=== PATIENT | male | born 1960 | race Caucasian/White ===

== ENCOUNTER 2017-12-05 11:00 | Observation (INO) | payer OTHER ==
[~2017-12-05 11:00] MED LIST: Glycopyrrolate 0.2 MG/ML 5 ML SYRINGE ONE; Hydrocortisone Sod Succ/PF 100 mg/2 ml Vial ONE; ISOVUE-370 76%-LOCM 1 ML ONE; Lidocaine 1% PF 5 ML VIAL ONE; Ondansetron HCl/PF 4 MG/2 ML Vial ONE; PHENYLEPHRINE-NS 100 MCG/ML 10 ML SYRINGE ONE; Propofol 200 MG/20 ML VIAL ONE; diphenhydrAMINE 50 MG/ML VIAL ONE
[2017-12-05 11:28] LABS: #Basophils 0.1 thou/uL (0.0-0.2); #Eosinphils 0.3 thou/uL (0.0-0.7); #Lymphocytes 2.7 thou/uL (1.20-3.40); #Neutrophils 10.6 thou/uL (1.40-6.50); %Basophils 0.6 % (0.0-1.0); %Eosinophils 1.9 % (0.0-10.0); %Lymphocytes 18.6 % (21.0-51.0); %Monocytes 6.8 % (0.0-10.0); %Neutrophils 72.1 % (42.0-75.0); Hemoglobin 14.4 g/dL (14.0-18.0); Mean Corpuscular HGB CONC 33.7 g/dL (32.0-36.0); Mean Corpuscular Hemoglobin 29.4 pg (27.0-31.0); Mean Corpuscular Volume 87.2 fl (80.0-94.0); Mean Platelet Volume 7.2 fL (7.4-10.4); Platelet Count 222 thou/uL (130-400); RBC Distribution Width 14.4 % (11.5-14.5); Red Blood Cell (RBC) Count 4.92 mill/uL (4.70-6.10); White Blood Cell (WBC) Count 14.7 thou/uL (4.8-10.8)
[2017-12-05 11:53] LABS: ALT (SGPT) 12 U/L (8-55); AST (SGOT) 10 U/L (5-34); Albumin 3.6 g/dL (3.5-5.0); Alkaline Phosphatase 67 U/L (40-150); Anion Gap 14 mmol/L (10-20); BUN (Urea Nitrogen) 14 mg/dL (8.4-25.7); Bilirubin, Total 0.7 mg/dL (0.2-1.2); CKMB 0.4 ng/mL (0-6.6); Calc. Creatinine Clearance 0 mL/min (70-130); Calcium 9.8 mg/dL (7.8-10.44); Carbon Dioxide 27 mmol/L (22-29); Chloride 100 mmol/L (98-107); Estimated GFR-MDRD 47; Globulin 3.2 g/dL (2.4-3.5); Glucose 75 mg/dL (70-105); Lipase 25 U/L (8-78); Potassium 3.8 mmol/L (3.5-5.1); Protein, Total 6.8 g/dL (6.0-8.3); Sodium 137 mmol/L (136-145); Troponin I Less than 0.010 ng/mL (< 0.028)
[2017-12-05] MEDS ORDERED: Morphine 4 MG/ML VIAL ONE ×3 (13:08→14:55)
[2017-12-05] MEDS ORDERED: Ondansetron HCl/PF 4 MG/2 ML Vial ONE (13:08)
[2017-12-05] MEDS ORDERED: Piperacillin/Tazobactam 3.375 GM in Sodium Chloride 0.9% 100 ML IVPB SCH (13:15)
--- NOTE | 2017-12-05 14:17 | CT ---
CTA CHEST AND ABDOMEN AND PELVIS WITH 3D VOLUME RENDERING: INDICATION: Abdominal pain, back pain for 2 days. Emergency room physician requests a CT aortogram protocol. COMPARISON: Reference is made to 05/21/17. FINDINGS: Stable postoperative appearance of the aorta with a prominent-sized excluded aneurysmal sac seen with in the abdominal aorta. Endograft and stent material again noted. Diffuse atherosclerotic plaque, c alcified and noncalcified remains. Inflammation of right lower quadrant centered about the appendix with evidence of internal appendicol ith. There is free fluid. The bowel is not reliably characterized without enteric contrast and by a rterial phase technique. Imaged aspects of the lungs reveal scattered parenchymal opacities which may relate to volume loss. There is wall prominence of the urinary bladder, which is mildly distended. Limited evaluation of the solid abdominal organs by arterial phase enhancement. There is marked atro phy of the left kidney which has progressed from prior exam. Recommend clinical correlation. This m ay relate to sequelae from renal artery stenosis in light of the associated vascular findings. IMPRESSION: 1. Findings which indicate acute appendicitis. Surgical consultation warranted. There is surroundi ng free fluid. 2. Redemonstration of vascular disease and evidence of prior vascular surgery with endograft and dasia nt placement. There has been progression of atrophy of the left kidney which his likely due to chron ic sequelae from renal artery stenosis. Recommend appropriate clinical followup in this regard. Telephone call of findings placed to the ER physician, Dr. Poppy Rascon, at the time of interpretatio n 1238 hours, 12/05/17. CODE CR POS: [facility]
[2017-12-05] MEDS ORDERED: Bupivacaine/Epinephrine 0.25% 30 ML VIAL ONE (15:33)
[2017-12-05] MEDS ORDERED: Fentanyl 100 MCG/2 ML VIAL ONE ×2 (15:49→17:25)
[2017-12-05] MEDS ORDERED: Ondansetron HCl/PF 4 MG/2 ML Vial IVP PRN ×2 (17:41→19:44)
[2017-12-05] MEDS ORDERED: Promethazine HCl 25 MG/ML VIAL IM PRN (17:41)
[2017-12-05] MEDS ORDERED: Promethazine HCl 25 MG/ML VIAL SLOW IVP PRN (17:41)
--- NOTE | 2017-12-05 18:37 | HP ---
DATE OF ADMISSION: 12/05/2017 REQUESTING PHYSICIAN: Carey Sanches M.D. ATTENDING PHYSICIAN: Dr. Vicente. HISTORY OF PRESENT ILLNESS: The patient presented to the Emergency Department with reported history of 2-1/2 days of abdominal pain that began periumbilical and subdiaphragmatic and over the timeframe. Pain including today is settled in his right lower quadrant. The patient underwent evaluation and examination in the emergency department to include CT of his chest, abdomen and pelvis which showed a cute appendicitis at which time we were asked to evaluate the patient for admission. The patient has been anorexic for 2 days, had chills, no documented fevers and denied nausea, vomiting or diarrhea. ALLERGIES: AVELOX, CIPROFLOXACIN, LEVOFLOXACIN, and MOXIFLOXACIN. MEDICATIONS: Aspirin, metoprolol, prednisone, atorvastatin, , Plavix, lisinopril, ranitidine, a lprazolam, Ultram and Flexeril. PAST MEDICAL HISTORY: Significant for abdominal aortic aneurysm requiring stents, chronic renal dise ase secondary to left nephrectomy, hyperlipidemia, osteoarthritis, adrenal insufficiency, chronic sin usitis, collagen vascular disease, CHF, hypertension, coronary artery disease, myocardial infarction, anxiety. PAST SURGICAL HISTORY: 1. Abdominal aortic aneurysm repair x2, stent of the left kidney which failed resuscitating nephrect lorenzo. 2. Left hip replacement. 3. Hernia repair. 4. Sinus surgery. 5. Heart catheterization. 6. Three-vessel coronary artery bypass graft surgery. 7. Iliac stent. SOCIAL HISTORY: Patient states he drinks "socially" and has significant tobacco use history. The pa fred has smoked upwards of 3 packs per day, but now currently is smoking only half a pack a day, but denies drug use. FAMILY HISTORY: Hypertension. REVIEW OF SYSTEMS: A ten point review of systems is negative unless otherwise stated. PHYSICAL EXAMINATION: VITAL SIGNS: Blood pressure 120/73, heart rate 76, respirations 19, oxygen saturation 96% on room ai r, and temperature is 100.1. GENERAL: Patient is resting comfortably in bed. He is alert and oriented x3. Aj coma scale is 15. HEAD: Normocephalic, atraumatic. EYES: Extraocular motion intact. PERRLA bilaterally. EARS: Atraumatic without discharge. NOSE: Atraumatic without discharge. OROPHARYNX: Clear. NECK: Nontender. Supple. Trachea is midline. No JVD. CHEST: Clear to auscultation with good inspiratory and expiratory effort. HEART: Regular rate and rhythm. ABDOMEN: Soft with tenderness to the right lower quadrant pain and significant rebound tenderness, p ositive Rovsing. Hypoactive bowel sounds. Pelvis is stable. EXTREMITIES: Neurovascularly intact x4. Capillary refill is 3 seconds. LABORATORY DATA: White blood cell count 14.7, hemoglobin 14.4, hematocrit 42.9, platelets 222. Sodi um 137, potassium 3.8, chloride 100, CO2 27, BUN 14, creatinine 1.53, glucose 75. LFTs are unremarka ble. RADIOGRAPHIC REPORTS: CT of the abdomen and pelvis with IV contrast shows findings which indicated a cute appendicitis. There is surrounding free fluid. Multiple other chronic changes secondary to his coronary artery disease and stents, grafts. ASSESSMENT AND PLAN: 1. Acute abdominal pain. 2. Acute appendicitis. 3. History of severe vascular disease. 4. Chronic renal disease. Plan will be to admit patient to surgery for preparation for laparoscopic appendectomy. The evaluati on and examination was done by Dr. Vicente and consent was obtained at that time.
[2017-12-05] MEDS ORDERED: Ondansetron ODT 4 MG TAB PO PRN (19:44)
[2017-12-05] MEDS ORDERED: Dextrose 5% in Water 1,000 ML IV PRN (19:44)
[2017-12-05] MEDS ORDERED: Dextrose 50% Abboject 50 ML SYRINGE SLOW IVP PRN ×2 (19:44)
[2017-12-05] MEDS ORDERED: traMADol HCl 50 MG TAB PO PRN (19:44)
[2017-12-05] MEDS: Morphine 4 MG/ML VIAL SLOW IVP PRN (20:38)
[2017-12-05] MEDS: Acetaminophen 500 MG TAB PO SCH (20:47)
[2017-12-05] MEDS: Sodium Chloride 0.9% 1,000 ML IV SCH (20:47)
[2017-12-05] MEDS: Amoxicillin/Potassium Clav 875 MG TAB PO SCH (20:47)
[2017-12-05] MEDS: Famotidine 20 MG TAB PO SCH (20:47)
--- NOTE | 2017-12-05 22:30 | OP ---
DATE OF PROCEDURE: 12/05/2017 PREOPERATIVE DIAGNOSIS: Acute appendicitis. POSTOPERATIVE DIAGNOSIS: Acute appendicitis with perforation, but no abscess. PROCEDURE PERFORMED: Laparoscopic appendectomy. SURGEON: Dr. Srinivasa Vicente. ANESTHESIA: General endotracheal. ESTIMATED BLOOD LOSS: 20 mL. FLUIDS GIVEN: 1200 mL crystalloids. COUNTS: Sponge and instrument count are certified as correct x2. COMPLICATIONS: None apparent at the time of operation. INDICATIONS FOR PROCEDURE: This is a 57-year-old man presented with 3 days of abdominal pa in. Clinical and radiographic examination was consistent with acute appendicitis for which patient was br ought to the operating room for appendectomy. Findings are consistent with a retrocecal appendicitis with perforation and appendicolith, which is r esiding outside of the appendix. No abscess noted. DESCRIPTION OF PROCEDURE: Informed consent obtained from the patient who was brought to the operatin g room and placed in the supine position. Following general anesthesia, abdomen was sterilely prepped and draped in the usual fashion. The skin below the umbilicus was infiltrated with 0.25% Marcaine with epinephrine. A small curvilinear infraumbilical incision was made using an 11 scalpel. Umbilical stalk was grasped with Alexx and elevated. Veress needle was inserted through the incision and placed in the peritoneal cavity through which the abdomen was insufflated with 4 liters of CO2 gas. Intra-abdominal pressure noted at negative 2 mmHg. Following abdominal insufflation, Veress needle was removed and a 5 mm trocar was introduced through the incision and placed in the peritoneal cavity using the Visiport under laparoscopy. Laparoscopy confirmed proper placement of the port, no injuries to underlying structures. An additional laparoscopy reveals right lower quadrant completely encased by omental adhesions. Under direct laparoscopy, a 12 mm left lower quadrant and a 5 mm suprapubic ports were placed after t he overlying skin was infiltrated with 0.25% Marcaine with epinephrine and appropriate incisions made . The patient was placed in the Trendelenburg position, rotated to his left. I introduced the [place] dissector with cautery, using this to take down omental adhesions from the right lower quadrant to expose the distal ileum completely adhered to the right lateral wall. These were meticulously taken down to avoid injuries to the bowel. A retrocecal appendix was then noted completely adhered to the right lateral gutter. An appendicolith was also noted sitting outside of the appendix walled off by omental adhesions. The appendix was then bluntly dissected free from surrounding structures using [place] dissector. This was then grasped with an Endo [place] forcep and elevated. I created a rent through the base of the mesoappendix using a [place] dissector. An Endo-JANET with a blue load was then used to divide the appendix at the appendicocecal junction. White load of the Endo-JANET was then used to divide the mesoappendix at the base. The appendix was then delivered of the abdominal cavity with the appendicolith using an EndoCatch. Operative site was irrigated with saline solution noting good hemostasis. Finding no other pathology, laparoscopy was terminated. Fascia of the left lower quadrant port site was closed using 0 Vicryl suture and Endo closure device under laparoscopy. Abdomen was desufflated. All ports and instruments were removed and accounted for. Skin incisions were closed using 4-0 Monocryl suture in subcuticular fashion. Dermabond was applied over the incisions after closure. The patient tolerated the operation without any apparent complication and was returned to recovery ro in satisfactory condition.
[2017-12-05] MEDS: traMADol HCl 50 MG TAB PO PRN (22:48)
[2017-12-05 23:34] VITALS: BMI 29.7
--- NOTE | 2017-12-05 23:50 | PRG ---
DATE OF SERVICE: 12/05/2017 SUBJECTIVE: Walt Medina is a 57-year-old gentleman postop day 0, status post laparoscopic appen dectomy. Postop, patient is seen and evaluated postoperatively. Patient is having some abdominal pa in at this time, but recently received pain medications. Otherwise, localizes no other complaint. P atient states pain is similar to previous. OBJECTIVE: VITAL SIGNS: Reviewed and stable. GENERAL: Patient is afebrile. Resting in bed, in no acute distress. CHEST: Breathing is nonlabored. ABDOMEN: Mildly tender, but soft, nondistended and without signs of guarding or rigidity. ASSESSMENT AND PLAN: Acute appendicitis, status post laparoscopic appendectomy. Continue antibiotic s. Postoperative pain management. Continue care as ordered. Continue to monitor. Patient will nee d a short course of p.o. antibiotics upon discharge.
[2017-12-06] MEDS: Acetaminophen 500 MG TAB PO SCH ×2 (01:22→07:55)
[2017-12-06] MEDS: Morphine 4 MG/ML VIAL SLOW IVP PRN (01:25)
[2017-12-06] MEDS: traMADol HCl 50 MG TAB PO PRN ×2 (05:11→11:38)
[2017-12-06] MEDS: Sodium Chloride 0.9% 1,000 ML IV SCH (05:12)
[2017-12-06 05:58] LABS: #Eosinphils 0.1 thou/uL (0.0-0.7); #Lymphocytes 1.6 thou/uL (1.20-3.40); #Monocytes 1.2 thou/uL (0.11-0.59); #Neutrophils 12.2 thou/uL (1.40-6.50); %Basophils 0.2 % (0.0-1.0); %Eosinophils 0.6 % (0.0-10.0); %Lymphocytes 10.7 % (21.0-51.0); %Monocytes 8.2 % (0.0-10.0); %Neutrophils 80.4 % (42.0-75.0); Hemoglobin 13.2 g/dL (14.0-18.0); Mean Corpuscular HGB CONC 32.2 g/dL (32.0-36.0); Mean Corpuscular Hemoglobin 28.5 pg (27.0-31.0); Mean Corpuscular Volume 88.5 fl (80.0-94.0); Mean Platelet Volume 7.4 fL (7.4-10.4); Platelet Count 204 thou/uL (130-400); RBC Distribution Width 14.4 % (11.5-14.5); Red Blood Cell (RBC) Count 4.62 mill/uL (4.70-6.10); White Blood Cell (WBC) Count 15.2 thou/uL (4.8-10.8)
[2017-12-06 06:23] LABS: Anion Gap 12 mmol/L (10-20); BUN (Urea Nitrogen) 15 mg/dL (8.4-25.7); Calc. Creatinine Clearance 74 mL/min (70-130); Calcium 8.7 mg/dL (7.8-10.44); Carbon Dioxide 21 mmol/L (22-29); Chloride 105 mmol/L (98-107); Estimated GFR-MDRD 45; Glucose 70 mg/dL (70-105); Potassium 4.3 mmol/L (3.5-5.1); Sodium 134 mmol/L (136-145)
[2017-12-06] MEDS: Famotidine 20 MG TAB PO SCH (07:56)
[2017-12-06] MEDS: Amoxicillin/Potassium Clav 875 MG TAB PO SCH (07:56)
[2017-12-06 13:32] VITALS: BP 119/74; TEMP 98.2
--- NOTE | 2017-12-07 00:12 | DIS ---
DATE OF ADMISSION: 12/05/2017 DATE OF DISCHARGE: 12/06/2017 ADMITTING PHYSICIAN: Srinivasa Vicente D.O. DISCHARGE PHYSICIAN: Srinivasa Vicente D.O. ADMITTING DIAGNOSIS: Acute appendicitis. DISCHARGE DIAGNOSIS: Acute appendicitis. OPERATIONS PERFORMED: Laparoscopic appendectomy on 12/05/[address] Vicente. Please see separate dic tation for operative report. HISTORY AND HOSPITAL COURSE: This is a 57-year-old man presented with abdominal pain. Clinical and radiographic examination was consistent with acute appendicitis for which patient underwent an uneven tful laparoscopic appendectomy yesterday. Postop day #1, he is ambulating with minimal difficulty. Pain is adequately controlled on oral analgesics. He is having normal bowel and urinary function. C linical examination reveals a man who has been hemodynamically stable and afebrile through this hospi talization. Incisional wound remains intact, clean and dry, no gross rebound, tenderness on examinat ion. The patient will be discharged home with the following instructions: 1. He sees me in the Surgery Clinic in 2 weeks. 2. In the interim, he is to avoid weightlifting in excess of 20 pounds. 3. He is given a prescription for tramadol 50 mg #20 to be taken 1 to 2 p.o. q.6 hours p.r.n. for pa in. He may alternate this with Tylenol 1000 mg p.o. q.6 hours and ibuprofen 800 mg p.o. q.8 hours p. r.n. for pain. The patient is to call me with any questions or problems including exacerbation of abdominal pain, in tolerance to oral intake or any abnormal drainage from the incisional wounds. The patient indicates understanding of information provided. I answered his questions. He has expressed gratitude for the care and nurture during this hospitalization and surgery.
== END 2017-12-06 14:35 | disposition home or self-care (01) ==
LOC: ERS 11:00 → SURG A 13:46
PROVIDERS: ADMIT Surgery; ATTEND Surgery
PROC: 0DTJ4ZZ Resection of Appendix, Percutaneous Endoscopic Approach (ICD-10-PCS; principal; 2017-12-06)
DX: K35.3 Acute appendicitis with localized peritonitis (principal); K66.0 Peritoneal adhesions (postprocedural) (postinfection); F17.210 Nicotine dependence, cigarettes, uncomplicated; F41.9 Anxiety disorder, unspecified; I25.10 Atherosclerotic heart disease of native coronary artery without angina pectoris; I25.2 Old myocardial infarction; I13.0 Hypertensive heart and chronic kidney disease with heart failure and stage 1 through stage 4 chronic kidney disease, or unspecified chronic kidney disease; N18.9 Chronic kidney disease, unspecified; I50.9 Heart failure, unspecified; I71.4 Abdominal aortic aneurysm, without rupture; E27.40 Unspecified adrenocortical insufficiency; E78.5 Hyperlipidemia, unspecified; M35.9 Systemic involvement of connective tissue, unspecified; M19.90 Unspecified osteoarthritis, unspecified site; Z79.82 Long term (current) use of aspirin; Z79.52 Long term (current) use of systemic steroids; Z79.01 Long term (current) use of anticoagulants; Z79.899 Other long term (current) drug therapy; Z88.1 Allergy status to other antibiotic agents; Z95.1 Presence of aortocoronary bypass graft; Z95.828 Presence of other vascular implants and grafts; Z96.642 Presence of left artificial hip joint; Z90.5 Acquired absence of kidney; Z98.890 Other specified postprocedural states
CPT/HCPCS: 36415; 71275; 80048; 80053; 82553; 83690; 84484; 85025; 88304; 93005; 96361; 96365; 96366; 96375; 96376; G0378; J1200; J1720; J2001; J2270; J2405; J2543; J2704; J3010; J7050

== ENCOUNTER 2017-12-07 21:26 | Inpatient (IN) | payer OTHER ==
[~2017-12-07 21:26] MED LIST changes: -Glycopyrrolate 0.2 MG/ML 5 ML SYRINGE ONE; -Hydrocortisone Sod Succ/PF 100 mg/2 ml Vial ONE; +Iopamidol 370 76% 50 ML VIAL FS ONE; -Lidocaine 1% PF 5 ML VIAL ONE; -Ondansetron HCl/PF 4 MG/2 ML Vial ONE; -PHENYLEPHRINE-NS 100 MCG/ML 10 ML SYRINGE ONE; -Propofol 200 MG/20 ML VIAL ONE; -diphenhydrAMINE 50 MG/ML VIAL ONE
[2017-12-07] MEDS ORDERED: Fentanyl 100 MCG/2 ML VIAL ONE (22:13)
[2017-12-07 22:27] LABS: #Eosinphils 0.2 thou/uL (0.0-0.7); #Lymphocytes 0.8 thou/uL (1.20-3.40); #Monocytes 0.9 thou/uL (0.11-0.59); #Neutrophils 9.1 thou/uL (1.40-6.50); %Basophils 0.2 % (0.0-1.0); %Eosinophils 1.8 % (0.0-10.0); %Monocytes 7.8 % (0.0-10.0); %Neutrophils 83.2 % (42.0-75.0); Hemoglobin 12.8 g/dL (14.0-18.0); Mean Corpuscular HGB CONC 32.8 g/dL (32.0-36.0); Mean Corpuscular Hemoglobin 29.3 pg (27.0-31.0); Mean Corpuscular Volume 89.3 fl (80.0-94.0); Platelet Count 221 thou/uL (130-400); Red Blood Cell (RBC) Count 4.37 mill/uL (4.70-6.10); White Blood Cell (WBC) Count 10.9 thou/uL (4.8-10.8)
[2017-12-07 22:49] LABS: ALT (SGPT) 9 U/L (8-55); AST (SGOT) 11 U/L (5-34); Albumin 3.1 g/dL (3.5-5.0); Alkaline Phosphatase 62 U/L (40-150); Anion Gap 14 mmol/L (10-20); BUN (Urea Nitrogen) 15 mg/dL (8.4-25.7); Bilirubin, Total 0.5 mg/dL (0.2-1.2); Calc. Creatinine Clearance 0 mL/min (70-130); Calcium 9.5 mg/dL (7.8-10.44); Carbon Dioxide 25 mmol/L (22-29); Chloride 102 mmol/L (98-107); Estimated GFR-MDRD 50; Globulin 3.3 g/dL (2.4-3.5); Glucose 97 mg/dL (70-105); Lipase 12 U/L (8-78); Potassium 5.2 mmol/L (3.5-5.1); Protein, Total 6.4 g/dL (6.0-8.3); Sodium 136 mmol/L (136-145)
[2017-12-08] MEDS ORDERED: Fentanyl 100 MCG/2 ML VIAL ONE (02:33)
[2017-12-08] MEDS ORDERED: Piperacillin-Tazo-Dextrose,Iso 3.375 GM in Premix Bag 1 BAG IVPB SCH (04:45)
[2017-12-08 05:56] VITALS: BMI 29.9
[2017-12-08] MEDS ORDERED: Sodium Chloride 0.9% 1,000 ML IV SCH (06:00)
[2017-12-08] MEDS ORDERED: Ondansetron ODT 4 MG TAB SL PRN (06:00)
[2017-12-08] MEDS ORDERED: Ondansetron HCl/PF 4 MG/2 ML Vial IVP PRN (06:00)
[2017-12-08] MEDS ORDERED: Acetaminophen 325 MG TAB PO PRN (06:00)
--- NOTE | 2017-12-08 09:23 | CT ---
PRELIMINARY REPORT/[facility]/EMERGENCY AFTER HOURS PROCEDURE: EXAM: CT Abdomen and Pelvis With Intravenous Contrast EXAM DATE/TIME: 12/08/2017 1:00 AM CLINICAL HISTORY: 57 years old, male; Pain; Abdominal pain; Generalized; Prior surgery; Surgery date: Post-operative (0 -2 days); Surgery type: Appendectomy on saturdat TECHNIQUE: Axial computed tomography images of the abdomen and pelvis with intravenous contrast. Coronal reformatted images were created and reviewed. CONTRAST: 70 mL of ISOVUE administered intravenously. COMPARISON: No relevant prior studies available. FINDINGS: ABDOMEN: Mild atelectasis at the lung bases. Liver appears normal with no focal abnormality. Spleen appears homogeneous without focal mass. Gallbladder is present and shows no evidence of gallstone. Pancreas appears normal. No focal mass or peripancreatic inflammation. Adrenal glands are normal in appearance. Right kidney is unremarkable. Left kidney is atrophic probably with a chronic segmental infarct.. Lef t renal stent is present. Aortoiliac endograft is present with thrombosed [place] aneurysm measuring 6 cm. No evidence of small bowel obstruction. No pneumoperitoneum. Cecal tip surgical suture lines suggests prior appendectomy. Edema or fluid is seen around the tip of the cecum is small volume of residual pneumoperitoneum. A small pericecal fluid collection may be de veloping measuring 2.7 cm. Bladder appears normal. Diverticular changes are present within the colon without inflammation. Left hip arthroplasty changes are present. IMPRESSION: Recent appendectomy with pericecal fluid and edema and possible small 2.7 cm pericecal fluid collecti on which may be postoperative or possibly a small developing abscess. Nonacute findings, as indicated above Thank you for allowing us to participate in the care of your patient. Dictated and Authenticated by: Charanjit Conteh MD 12/08/2017 1:39 AM Central Time ([place] & [place]) FINAL REPORT EMERGENCY AFTER HOURS CT ABDOMEN AND PELVIS WITH IV AND ORAL CONTRAST: Date: 12/08/17 Time: 0104 hours HISTORY: Abdominal pain. Recent appendectomy. FINDINGS: Findings agree with the preliminary report by Sonya. Postoperative changes of the right lower quadrant are present with a small pericecal fluid collection. It is partially walled-off and surrounded by ad jacent stranding. Currently, it is not of size and position for safe percutaneous drainage. If sympto ms persist, please consider follow-up CT evaluation. POS: [facility]
[2017-12-08] MEDS ORDERED: ALPRAZolam 0.5 MG TAB PO PRN (10:58)
[2017-12-08] MEDS ORDERED: traMADol HCl 50 MG TAB PO PRN ×2 (11:07)
[2017-12-08 11:49] VITALS: BP 125/77; TEMP 97.9
[2017-12-08] MEDS ORDERED: predniSONE 5 MG TAB PO SCH (12:00)
[2017-12-08] MEDS ORDERED: Piperacillin/Tazobactam 3.375 GM in Sodium Chloride 0.9% 100 ML IVPB SCH (12:00)
[2017-12-08] MEDS: Acetaminophen 500 MG TAB PO SCH ×2 (12:05→12:08)
[2017-12-08] MEDS ORDERED: Vancomycin HCl 1 GM in Premix Bag 1 BAG IVPB SCH (15:00)
[2017-12-08] MEDS ORDERED: Metoprolol Tartrate 25 MG TAB PO SCH (21:00)
--- NOTE | 2017-12-08 22:44 | SS ---
DATE OF ADMISSION: 12/08/2017 DATE OF DISCHARGE: 12/08/2017 PREOPERATIVE DIAGNOSIS: Status post laparoscopic appendectomy. POSTOPERATIVE DIAGNOSIS: Status post laparoscopic appendectomy. HISTORY AND HOSPITAL COURSE: A 57-year-old man who underwent laparoscopic appendectomy on 12/05/2017 . The patient presented last night with worsening abdominal pain associated with nausea, vomiting, and diarrhea. At the time of my evaluation, he denies any nausea. He is ambulating with minimal difficu lty. He is having good bowel movement this morning and passing flatus. He has tolerated general diet for lunch. PHYSICAL EXAMINATION: VITAL SIGNS: Remained stable since this admission. Current vital signs include blood pressure 125/7 7, pulse 70, respirations 20, maximum temperature since admission this morning is 98.3 degrees Fahren heit. Oxygen saturation is 97% on room air. HEENT: Reveals normocephalic and atraumatic. HEART: Reveals regular rate and rhythm, no murmurs or gallops auscultated. LUNGS: Clear to auscultation bilaterally. His breathing is regular and unlabored. ABDOMEN: Soft, nondistended. Incisional scars remain intact, clean, and dry. He has incisional ten derness to palpation with no gross rebound tenderness present. NEUROLOGICAL: Reveals no focal deficits present. PERTINENT LABORATORY FINDINGS: Includes a CBC which was obtained last night with 10,900 white blood cells, which was improved from 3 days previously, hemoglobin and hematocrit are stable at 12.8 and 39 .0 respectively. Platelet count 221,000. Metabolic profile: Sodium 136, potassium 5.2, chloride is 102, bicarbonate 25, BUN 15, creatinine is stable at 1.46, glucose is 97. Lipase is normal at 12. I did personally review the CT scan of the abdomen and pelvis which was obtained revealing postoperat ryan inflammatory changes in the right lower quadrant. There is minimal pericecal free fluid. No pneumoperitoneum is present. IMPRESSION: Postoperative day #3 status post laparoscopic appendectomy. The patient is hemodynamica lly stable. DISCHARGE INSTRUCTIONS: He will be discharged home today with the following instructions: 1. He is to maintain clinic appointment with me in 2 weeks. 2. He is to complete his antibiotic therapy, Augmentin 875 mg p.o. b.i.d. x4 days. 3. He is to notify me with any exacerbation of abdominal pain, fever in excess of 101 degrees Fahren heit, or intolerance to oral intake. The patient indicates understanding of him today in the presenc e of his . They both have expressed deep gratitude for the care rendered to him during this hosp italization.
[2017-12-09] MEDS ORDERED: Lisinopril 20 MG TAB PO SCH (09:00)
[2017-12-09] MEDS ORDERED: Atorvastatin Calcium 20 MG TAB PO SCH (09:00)
[2017-12-09] MEDS ORDERED: Famotidine 20 MG TAB PO SCH (09:00)
[2017-12-09] MEDS ORDERED: predniSONE 5 MG TAB PO SCH (09:00)
== END 2017-12-08 15:03 | disposition home or self-care (01) | DRG 392 ==
LOC: ERS 21:26 → ERHOLD 12-08 02:45 → T4-A 12-08 05:33
PROVIDERS: ADMIT Surgery; ATTEND Surgery
DX: R10.84 Generalized abdominal pain (principal); R11.2 Nausea with vomiting, unspecified; R19.7 Diarrhea, unspecified; Z90.49 Acquired absence of other specified parts of digestive tract
CPT/HCPCS: 36415; 74177; 80053; 83605; 83690; 85025; 93005; 96361; 96365; 96375; 96376; 99406; J2543; J3010; J3370; J7050

== ENCOUNTER 2017-12-16 20:51 | Emergency (ER) | payer OTHER ==
--- NOTE | 2017-12-16 21:26 | RAD ---
PORTABLE AP CHEST X-RAY 12/16/17 HISTORY: Chest pain and fever. History of appendectomy one week ago. COMPARISON: 06/26/17 FINDINGS: Postsurgical changes related to median sternotomy are noted. The cardiac silhouette and pulmonary vas culature are within normal limits. The lungs remain clear. Median sternotomy wires are again seen wit h fractures of the upper median sternotomy wires also again seen. There is right glenohumeral osteoar thropathy present. Remote left sided rib fractures are again seen. There has been no interval change from the prior study. IMPRESSION: No acute cardiopulmonary process. POS: [facility]
[2017-12-16 21:39] LABS: #Lymphocytes 1.6 thou/uL (1.20-3.40); #Monocytes 0.9 thou/uL (0.11-0.59); #Neutrophils 10.1 thou/uL (1.40-6.50); %Basophils 0.3 % (0.0-1.0); %Eosinophils 0.3 % (0.0-10.0); %Lymphocytes 12.7 % (21.0-51.0); %Monocytes 7.2 % (0.0-10.0); %Neutrophils 79.4 % (42.0-75.0); Hemoglobin 13.4 g/dL (14.0-18.0); Mean Corpuscular HGB CONC 34.1 g/dL (32.0-36.0); Mean Corpuscular Hemoglobin 29.3 pg (27.0-31.0); Mean Corpuscular Volume 85.9 fl (80.0-94.0); Mean Platelet Volume 7.1 fL (7.4-10.4); Platelet Count 373 thou/uL (130-400); RBC Distribution Width 13.6 % (11.5-14.5); Red Blood Cell (RBC) Count 4.59 mill/uL (4.70-6.10); White Blood Cell (WBC) Count 12.7 thou/uL (4.8-10.8)
[2017-12-16] MEDS ORDERED: Ketorolac Tromethamine 30 MG/ML VIAL ONE (21:58)
[2017-12-16 22:01] LABS: ALT (SGPT) 13 U/L (8-55); AST (SGOT) 10 U/L (5-34); Albumin 3.5 g/dL (3.5-5.0); Alkaline Phosphatase 63 U/L (40-150); Anion Gap 14 mmol/L (10-20); BUN (Urea Nitrogen) 16 mg/dL (8.4-25.7); Bilirubin, Total 0.3 mg/dL (0.2-1.2); Calc. Creatinine Clearance 0 mL/min (70-130); Calcium 10.2 mg/dL (7.8-10.44); Carbon Dioxide 23 mmol/L (22-29); Chloride 102 mmol/L (98-107); Estimated GFR-MDRD 45; Globulin 2.9 g/dL (2.4-3.5); Glucose 87 mg/dL (70-105); Potassium 4.3 mmol/L (3.5-5.1); Protein, Total 6.4 g/dL (6.0-8.3); Sodium 135 mmol/L (136-145)
[2017-12-16 22:04] LABS: CKMB 0.5 ng/mL (0-6.6); Troponin I Less than 0.010 ng/mL (< 0.028)
[2017-12-16] MEDS ORDERED: Lorazepam 2 MG/ML VIAL ONE (22:40)
[2017-12-16] MEDS ORDERED: cefTRIAXone\\ROCEPHIN 1 GM in Sodium Chloride 0.9% 100 ML IVPB SCH (22:45)
[2017-12-16] MEDS ORDERED: Azithromycin 500 MG in Sodium Chloride 0.9% 250 ML 250 ML IVPB SCH (22:45)
[2017-12-16] MEDS ORDERED: Albuterol Sulfate 2.5 mg/3 ml Neb ONE (22:53)
[2017-12-17] MEDS ORDERED: Lorazepam 1 MG TAB ONE (01:04)
--- NOTE | 2018-01-09 17:34 | EKG ---
Test Reason : Blood Pressure : / mmHG Vent. Rate : 066 BPM Atrial Rate : 064 BPM P-R Int : 088 ms QRS Dur : 112 ms QT Int : 416 ms P-R-T Axes : 043 063 092 degrees QTc Int : 436 ms Undetermined rhythm Nonspecific ST and T wave abnormality Abnormal ECG Confirmed by FRANCHESCA MERRILL ([id number]), photo editor ROSA AVILES ([id number]) on 01/09/2018 5:33:32 PM Referred By: Confirmed By:FRANCHESCA MERRILL
== END 2017-12-17 01:15 | disposition home or self-care (01) ==
LOC: ERS 20:51
DX: J40 Bronchitis, not specified as acute or chronic (principal); E78.5 Hyperlipidemia, unspecified; I13.2 Hypertensive heart and chronic kidney disease with heart failure and with stage 5 chronic kidney disease, or end stage renal disease; N18.6 End stage renal disease; I50.9 Heart failure, unspecified; I25.2 Old myocardial infarction; I25.10 Atherosclerotic heart disease of native coronary artery without angina pectoris; F17.210 Nicotine dependence, cigarettes, uncomplicated; F41.9 Anxiety disorder, unspecified; Z79.82 Long term (current) use of aspirin; Z79.899 Other long term (current) drug therapy
CPT/HCPCS: 36415; 71045; 80053; 82553; 84484; 85025; 93005; 94640; 96365; 96375; J0456; J0696; J1885; J2060; J7050; J7611; J7620

== ENCOUNTER 2018-11-24 12:48 | Inpatient (IN) | payer OTHER ==
[2018-11-24 13:42] LABS: #Lymphocytes 0.9 thou/uL (1.20-3.40); #Monocytes 0.9 thou/uL (0.11-0.59); #Neutrophils 15.3 thou/uL (1.40-6.50); %Basophils 0.1 % (0.0-1.0); %Eosinophils 0.2 % (0.0-10.0); %Monocytes 5.4 % (0.0-10.0); %Neutrophils 89.3 % (42.0-75.0); Mean Corpuscular HGB CONC 32.5 g/dL (32.0-36.0); Mean Corpuscular Hemoglobin 27.1 pg (27.0-31.0); Mean Corpuscular Volume 83.2 fL (78.0-98.0); Mean Platelet Volume 6.8 fL (7.4-10.4); Platelet Count 295 thou/uL (130-400); RBC Distribution Width 14.6 % (11.5-14.5); Red Blood Cell (RBC) Count 4.43 mill/uL (4.70-6.10); White Blood Cell (WBC) Count 17.1 thou/uL (4.8-10.8)
[2018-11-24 14:02] LABS: ALT (SGPT) 20 U/L (8-55); AST (SGOT) 16 U/L (5-34); Albumin 3.1 g/dL (3.5-5.0); Alkaline Phosphatase 55 U/L (40-150); Anion Gap 13 mmol/L (10-20); BUN (Urea Nitrogen) 15 mg/dL (8.4-25.7); Bilirubin, Total 0.3 mg/dL (0.2-1.2); Calc. Creatinine Clearance 0 mL/min (70-130); Calcium 8.6 mg/dL (7.8-10.44); Carbon Dioxide 19 mmol/L (22-29); Chloride 102 mmol/L (98-107); Estimated GFR-MDRD 72; Globulin 2.5 g/dL (2.4-3.5); Glucose 93 mg/dL (70-105); Potassium 4.5 mmol/L (3.5-5.1); Protein, Total 5.6 g/dL (6.0-8.3); Sodium 129 mmol/L (136-145)
--- NOTE | 2018-11-24 14:21 | RAD ---
CHEST FRONTAL VIEW: INDICATIONS: Chest pain, mid sternal. COMPARISON: 09/25/2018 FINDINGS: Mild enlargement of the cardiomediastinal with slight vascular prominence and interstitial opacificat ion of each lung, evidence of prior sternotomy, with similar appearing fragmentation of sternotomy wi res. There is no lobar consolidation, effusion, or discrete pneumothorax. There is mild osseous rem odeling involving the posterolateral mid right ribs, which may relate to sequela from prior injury. IMPRESSION: Findings which indicate mild fluid overload. Recommend clinical correlation and, as necessary, imaging followup may be obtained. POS: [facility]
[2018-11-24] MEDS ORDERED: Ondansetron ODT 4 MG TAB PO PRN (19:17)
[2018-11-24] MEDS ORDERED: Ondansetron PF 4 MG/2 ML Vial IVP PRN (19:17)
[2018-11-24] MEDS ORDERED: Furosemide 40 MG TAB PO SCH (19:30)
[2018-11-24] MEDS ORDERED: Furosemide 40 MG TAB PO ONE (19:30)
[2018-11-24] MEDS: Famotidine 20 MG TAB PO SCH (20:38)
[2018-11-24] MEDS: Metoprolol Tartrate 50 MG TAB PO SCH (20:39)
[2018-11-24] MEDS: Acetaminophen 325 MG TAB PO PRN (20:40)
[2018-11-24] MEDS: Nicotine 14 MG PATCH TD SCH (20:40)
[2018-11-24] MEDS: Guaifenesin DM 100-10/5 ML UDCUP PO PRN (20:40)
[2018-11-24] MEDS: Nystatin 500,000 UNITS/5 ML UDCUP SSW SCH (20:40)
--- NOTE | 2018-11-25 05:26 | HP ---
CHIEF COMPLAINT: Increasing shortness of breath with bilateral lower extremity edema x2 weeks. HISTORY OF PRESENT ILLNESS & ROS: This is a pleasant 58-year-old man, who presents complaining of bilateral lower extremity edema that has been progressively worsening for the last two weeks along with increasing shortness of breath. Initially, the shortness of breath was exertional; however, now he feels less short of breath while at rest. He has also noted sinus pressure, which he says he has experienced several times in the past requiring different antibiotics for sinus infection. He reports having a sore throat and has had some pain with swallowing. Denies having any fevers. He has experienced lightheadedness when bending forward, but denies any dizziness or vertigo-like symptoms. He denies any nausea or vomiting. He denies any visual disturbances. He was recently started on Zithromax following discharge from the hospital for URTI. The patient states he has had no improvement. He reports a history of systemic lupus. He is on prednisone 2 mg daily for the last several years. He has had previous CABG x3 in 2013. The graft was taken from his left lower leg and states he had minimal swelling when he is very active, but the amount of edema he currently has, he has never experienced before. He denies any chest pain, but does report a discomfort that is intermittent and feels like a "tugging sensation." He denies any increased discomfort or breathlessness when lying flat. He has had a cough that was productive for blood-tinged sputum yesterday. Denies any purulent sputum. He admits to being a smoker and currently smokes half a pack a day. Denies any issues with the chronic cough and does not require any regular inhalers, nebs, or home oxygen. Laboratory studies done in the ED are notable for a white blood count of 17.1. Last white blood count in the system is from nearly one year ago at which time his white count was 12.7. It is slightly higher from what might be his baseline. The BNP was 74.4. He was noted to have a low sodium of 129. He has a mildly reduced sodium in the past, 133 to 135. The patient is known to have an atrophic left kidney following complications from a AAA repair. He has no known history of heart failure; however, on a chest x-ray done while in the ED showed findings indicating mild fluid overload. The patient admitted for further management and workup. PAST MEDICAL HISTORY: 1. Hypertension. 2. Dyslipidemia. 3. CABG x3 in 2013. 4. Left kidney atrophy secondary to complication from AAA repair. 5. Long-term smoker. 6. Systemic lupus. 7. Osteoarthritis. 8. End-stage renal disease. 9. Endocrine disease, adrenal insufficiency. 10. Collagen vascular disease. 11. Chronic sinusitis. 12. Coronary artery disease. PAST SURGICAL HISTORY: 1. Back surgery bilaterally in 2018. 2. Previous appendectomy. 3. AAA repair in December 29, 2016, failed repair. Second AAA repair in March 2017 with stent. 4. Left hip replacement. 5. Hernia repair. 6. Sinus surgery. 7. Heart catheterization. 8. Stent placement, February 10, 2017. 9. Abdominal exam per patient. SOCIAL HISTORY: He denies any alcohol use, but reports smoking half a pack a day. No illicit drug use. ALLERGIES: AVELOX CAUSES ANAPHYLAXIS. CURRENT MEDICATIONS: 1. Aspirin 81 mg daily. 2. Metoprolol tartrate 50 mg twice daily. 3. Prednisone 2 mg daily. 4. Atorvastatin 20 daily. 5. Carisoprodol 350 mg twice daily. 6. Plavix 75 mg once daily. 7. Lisinopril 15 mg p.o. once daily. 8. Ranitidine 150 mg p.o. daily. 9. Alprazolam 0.5 mg p.o. 3 times a day p.r.n. for anxiety. 10. Ultram 50 mg p.o. every 6 hours as needed. 11. Xanax 0.25 mg p.o. once daily in the morning. 12. Dexilant delayed release 30 mg once daily. 13. Flomax 0.4 mg p.o. daily. PHYSICAL EXAMINATION: VITALS: Temp 98.1, HR 60, RR 22, O2 sat 97% on RA, BP 119/73. GENERAL: The patient is pleasant appearing and in no acute distress, but he is visibly short of breath when speaking, unable to talk in full sentences with slightly labored breathing. HEENT: Normocephalic, atraumatic. Pupils equal, round, and reactive to light. Sclera without icterus. Oropharynx is notable for exudate. Geographic tongue appearance. No source of bleeding. NECK: Supple with submandibular lymphadenopathy and bilaterally tenderness to palpation. No JVD. Trachea midline. CARDIOVASCULAR: Regular rate and rhythm. No audible murmurs. LUNGS: Bibasilar rales. No audible wheezing or crackles. CHEST: Discomfort with palpation of the sternum. ABDOMEN: Obese, nontender, nondistended. Bowel sounds present. EXTREMITIES: No clubbing or cyanosis. +2 pitting edema present in bilateral lower extremities from foot to the knee. Normal sensation. Pulses are present. NEUROLOGIC: Alert and oriented x3. Speech normal. No focal deficits. LABORATORY STUDIES: As mentioned above in HPI. IMAGING STUDIES: As mentioned in the HPI with findings suggestive of mild fluid overload on the chest x-ray. IMPRESSION AND PLAN: The patient will be admitted for the following medical conditions: 1. Hyponatremia: Na+ correction. Monitor sodium. Consult Nephrology. 2. Bilateral lower extremity edema, diurese. 3. Hypertension. Continue to monitor BP. Continue medications. 4. Leukocytosis. Slightly increased from clinically raised white blood count. The patient on long-term steroids with prednisone 2 mg p.o. 5. Odynophagia. On chronic steroids. Likely thrush. Cultures requested. Continue Nystatin. 6. Gastrointestinal prophylaxis. 7. Venous thromboembolism prophylaxis. The patient's case was discussed with Dr. Hare, who agrees with admission to inpatient. Job ID: [id number] MTDD
[2018-11-25 05:34] LABS: #Eosinphils 0.1 thou/uL (0.0-0.7); #Monocytes 0.9 thou/uL (0.11-0.59); #Neutrophils 8.7 thou/uL (1.40-6.50); %Basophils 0.3 % (0.0-1.0); %Eosinophils 0.8 % (0.0-10.0); %Monocytes 7.9 % (0.0-10.0); %Neutrophils 73.9 % (42.0-75.0); Hemoglobin 12.4 g/dL (14.0-18.0); Mean Corpuscular HGB CONC 33.1 g/dL (32.0-36.0); Mean Corpuscular Hemoglobin 27.7 pg (27.0-31.0); Mean Corpuscular Volume 83.6 fL (78.0-98.0); Mean Platelet Volume 6.9 fL (7.4-10.4); Platelet Count 290 thou/uL (130-400); RBC Distribution Width 14.9 % (11.5-14.5); Red Blood Cell (RBC) Count 4.47 mill/uL (4.70-6.10); White Blood Cell (WBC) Count 11.8 thou/uL (4.8-10.8)
[2018-11-25 05:50] LABS: ALT (SGPT) 23 U/L (8-55); AST (SGOT) 15 U/L (5-34); Albumin 3.1 g/dL (3.5-5.0); Alkaline Phosphatase 57 U/L (40-150); Anion Gap 13 mmol/L (10-20); BUN (Urea Nitrogen) 16 mg/dL (8.4-25.7); Bilirubin, Total 0.2 mg/dL (0.2-1.2); Calc. Creatinine Clearance 101 mL/min (70-130); Calcium 8.8 mg/dL (7.8-10.44); Carbon Dioxide 24 mmol/L (22-29); Chloride 104 mmol/L (98-107); Estimated GFR-MDRD 60; Globulin 2.8 g/dL (2.4-3.5); Glucose 90 mg/dL (70-105); Protein, Total 5.9 g/dL (6.0-8.3); Sodium 137 mmol/L (136-145)
[2018-11-25] MEDS ORDERED: Enoxaparin Sodium 40 MG/0.4 ML SYRINGE SC SCH (09:00)
[2018-11-25] MEDS ORDERED: Non-Formulary Item 1 EACH (Ranitidine Hcl [Ranitidine Hcl] 150 MG) PO SCH (09:00)
[2018-11-25] MEDS: Lisinopril 20 MG TAB PO SCH (09:07)
[2018-11-25] MEDS: predniSONE 5 MG TAB PO SCH (09:08)
[2018-11-25] MEDS: ALPRAZolam 0.5 MG TAB PO SCH ×3 (09:09→20:49)
[2018-11-25] MEDS: Tamsulosin HCl 0.4 MG CAP PO SCH (09:09)
[2018-11-25] MEDS: Aspirin 81 mg Enteric Coated Tablet PO SCH (09:10)
[2018-11-25] MEDS: Metoprolol Tartrate 50 MG TAB PO SCH ×2 (09:10→20:50)
[2018-11-25] MEDS: Famotidine 20 MG TAB PO SCH ×2 (09:10→20:50)
[2018-11-25] MEDS: Atorvastatin Calcium 20 MG TAB PO SCH (09:10)
[2018-11-25] MEDS: Clopidogrel Bisulfate 75 MG TAB PO SCH (09:10)
[2018-11-25] MEDS: Nystatin 500,000 UNITS/5 ML UDCUP SSW SCH ×4 (09:11→20:51)
[2018-11-25] MEDS: Acetaminophen 325 MG TAB PO PRN (09:11)
[2018-11-25] MEDS ORDERED: Furosemide 20 MG TAB PO SCH (11:30)
--- NOTE | 2018-11-25 11:41 | PDOC.PN ---
- Subjective Encounter Start Date: 11/25/18 Encounter Start Time: 10:39 Subjective: Feeling unwell, as if he has an "infection". C/o sinus congestion. Afebrile -: Cough slightly better. No hemoptysis. No improvement in SOB. -: Slight improvement in bilateral leg edema. No n/v, or abdo pain. Patient insists he feels generally unwell due to a sinus or inner ear infection. States he has had several courses of antibiotics in the past and this is common for him. The lower leg edema is new and has never happened before. Walking/standing better since decreased edema. Sore throat improved from yesterday. - Objective Vital Signs & Weight: Vital Signs (12 hours) Temp Pulse Resp BP Pulse Ox 11/25/18 11:04 98.2 F 88 18 146/83 H 96 11/25/18 08:55 98.1 F 71 18 117/71 98 11/25/18 04:00 97.8 F 59 L 20 118/70 95 11/25/18 00:00 98.1 F 64 20 119/68 94 L Weight Weight 239 lb 14.4 oz I&O: 11/24/18 11/25/18 11/26/18 06:59 06:59 06:59 Intake Total 540 Output Total 2250 Balance -1710 Result Diagrams: 11/25/18 05:12 11/25/18 05:12 Phys Exam - Physical Examination Constitutional: NAD HEENT: PERRLA, moist MMs, oral pharynx no lesions oropharynx cleared up from yesterday, no thrush, sores or ulcers. Tongue appearing normal. Neck: supple, full ROM Audible ronchi bilaterally throughout all lung rees Cardiovascular: RRR Gastrointestinal: soft, non-tender, no distention, positive bowel sounds Musculoskeletal: pulses present bilateral lower limb edema Neurological: normal sensation, moves all 4 limbs Psychiatric: normal affect, A&O x 3 Deviation from normal: Appears flushed, facial puffiness, chronic (right>left) Dx/Plan (1) Acute hyponatremia Code(s): E87.1 - HYPO-OSMOLALITY AND HYPONATREMIA Status: Resolved (2) CHF (congestive heart failure) Code(s): I50.9 - HEART FAILURE, UNSPECIFIED Status: Acute (3) Adrenal insufficiency Code(s): E27.40 - UNSPECIFIED ADRENOCORTICAL INSUFFICIENCY Status: Chronic (4) Smoker Code(s): F17.200 - NICOTINE DEPENDENCE, UNSPECIFIED, UNCOMPLICATED Status: Chronic - Plan cont current plan of care Status post Echo. Slight improvement in edema. Cardio consult requested. -: Repeat dose of Lasix 40 mg PO. Continue fluid restriction. -: Na+ improved, continue to monitor. -: Thrush improved. Continue Nystatin. Awaiting throat cultures. -: Duo-neb prescribed. Monitor O2 sat. Patient requesting antibiotics however WBC improved and he remains afebrile. Will discuss patient with Dr. Howard for further input. ADDENDUM: (16:38) Patient seen by Dr. Howard. Cleared for discharge. Upon patients insistence agreeable to provide dose of IV Rocephin and discharge on oral abx. Patient shortly after complained of palpitations when standing to go to the toilet. Seen by Dr. Silverio who has requested bilateral doppler US and CT Chest to rule out DVT/PE. Patient currently resting comfortably. Requesting IV abx. Rocephin prescribed. Awaiting investigations.
--- NOTE | 2018-11-25 13:27 | PQF ---
CLINICAL DOCUMENTATION IMPROVEMENT CLARIFICATION FORM: ICD-10 Updated PLEASE DO AN ADDENDUM TO THE PROGRESS NOTE WITH ANY DOCUMENTATION UPDATES OR ADDITIONS AND CARRY THROUGH TO DC SUMMARY. THANK YOU. DATE: 11/25/18 ATTN: DR. SANDHU Please exercise your independent, professional judgment in responding to the clarification form. Clinical indicators are provided on the bottom of this form for your review Please check appropriate box(s): HEART FAILURE: [ ] Systolic / HFrEF [ X ] Diastolic / HFpEF [ ] Combined Systolic / Diastolic [ ] Other diagnosis [ ] Unable to determine In addition, please specify: Present on Admission (POA): [ X ] Yes [ ] No [ ] Unable to determine For continuity of documentation, please document condition throughout progress notes and discharge summary. Thank You. CLINICAL INDICATORS - SIGNS / SYMPTOMS / LABS PROGRESS NOTE 11/25: "ACUTE CHF" NURSING NOTE 11/25: "COURSE BREATH SOUNDS WITH RHONCHI" "PRODUCTIVE COUGH" ER NOTE: "COUGH, CHEST PAIN, BLE EDEMA" BNP 94.4 RISKS: H/O HTN H/O CHF H/O LUPUS TREATMENT: LASIX (11/24-11/25) LISINOPRIL (STARTED 11/25) ECHOCARDIOGRAM CARDIOLOGY CONSULT TELEMETRY MONITORING SAP [employer] Winform Viewer (This form is maintained as a part of the permanent medical record) 2014 [employer]. All Rights Reserved [email or web address] Office: [phone] MONTY
[2018-11-25 13:33] VITALS: BMI 31.6
--- NOTE | 2018-11-25 16:59 | CON ---
DATE OF CONSULTATION: 11/25/2018 REASON FOR CONSULTATION: Lower extremity edema. PRIMARY BLOGS MANAGER: En Byrnes. HISTORY OF PRESENT ILLNESS: Mr. Medina is a pleasant 58-year-old white gentleman, who comes to the hospital for shortness of breath and bilateral lower extremity edema. He was actually admitted to the [facility] about 2 weeks ago. He spent about a week there for hyponatremia and hyperkalemia. He had a fluid restriction, was thought to have SIADH related to his acute bronchitis. He was placed on antibiotics as well and steroids. He went home and noticed increased swelling in the last few days since he left the hospital and noticed that his shortness of breath was getting worse, so he decided to come back to this hospital now for further evaluation. On admission, he was found to have lower extremity edema, worse around the ankles and feet, and his sodium was 129, so he was admitted for further evaluation. He actually received some IV Lasix and diuresed mildly. His edema is a little bit improved and his sodium is now back up to normal range. Cardiology has been consulted for evaluation of lower extremity edema, possibly being heart failure. Mr. Medina continues to cough and continues to have difficulty breathing. PAST MEDICAL HISTORY: 1. Hypertension. 2. Hyperlipidemia. 3. CABG x3 in 2013. 4. Left kidney atrophy secondary to complication from AAA repair. 5. Long-term smoker, continues to smoke. 6. SLE. 7. Osteoarthritis. 8. Adrenal insufficiency. 9. Collagen vascular disease. 10. Chronic sinusitis. PAST SURGICAL HISTORY: 1. Bilateral back surgeries. 2. Appendectomy. 3. AAA repair in November of 2016, failed second repair in March of 2017. 4. Left hip replacement. 5. Hernia repair. 6. Sinus surgery. 7. Heart catheterization in the past. 8. Stents in January of 2017. SOCIAL HISTORY: No alcohol or drugs. Continues to smoke currently at half a pack a day, trying to quit. No drug use. OUTPATIENT MEDICATIONS: Include, 1. Aspirin 81 a day. 2. Metoprolol 50 mg b.i.d. 3. Prednisone 10 mg a day. 4. Atorvastatin 20 mg a day. 5. Carisoprodol. 6. Plavix 75 mg a day. 7. Lisinopril 50 mg a day. 8. Alprazolam. 9. Ultram p.r.n. 10. Xanax. 11. Dexilant. 12. Flomax. ALLERGIES: AVELOX CAUSES ANAPHYLAXIS. REVIEW OF SYSTEMS: A 12-point review of systems was done and was found to be negative unless stated in the history of present illness. PHYSICAL EXAMINATION: VITAL SIGNS: Temperature 98.2, pulse 88, respiratory rate 18, saturating 96% on room air, blood pressure 146/83. GENERAL: Awake, alert, and oriented x3. No distress. HEENT: Normocephalic and atraumatic. LUNGS: Have coarse breath sounds bilaterally with expiratory wheezes. CARDIOVASCULAR: S1 and S2. No S3 or S4. No murmurs. ABDOMEN: Soft. Positive bowel sounds. EXTREMITIES: 1+ edema distally. SKIN: Warm and dry. LABORATORY DATA: Laboratory work was reviewed. CBC with white count of 17, down to 11; hemoglobin of 12; hematocrit of 36; platelet count of 295. Chemistries were unremarkable. His sodium on admission was 129, back up to 137 after IV Lasix, but his creatinine bumped from 1.0 to 1.23. BNP was 94, down to 69. Troponin is negative x1. Albumin is 3.1. TSH was normal at 2.3. Echocardiogram was reviewed. Normal EF at 55% to 60%. He has a grade 1 diastolic dysfunction, which is expected in the setting of previous bypass. He has tiny pericardial effusion without tamponade and his aortic root measures at 4.0 cm, mildly dilated. His right ventricle appears to be generous, a little dilated, but RV systolic function appears to be normal. Chest x-ray on admission, increased vascular prominence suggestive of mild fluid overload. ASSESSMENT: 1. Lower extremity edema. 2. Acute on chronic diastolic heart failure. 3. Acute bronchitis. 4. Tobacco use, ongoing. 5. Coronary artery disease, stable at this time. 6. Dilated right ventricle. PLAN: 1. We will make sure he did not develop a DVT and sent a PE. He does not have Gray sign which would go against a PE, but we certainly do not want to miss this. He did get DVT prophylaxis while admitted at the medical center. We will do a Doppler ultrasound of bilateral lower extremities and a CT per PE protocol. 2. Diastolic dysfunction is mild. The biggest concern is this is coming from some mild level of RV failure. 3. Hyponatremia: Likely delusional as it has improved with just one dose of Lasix. 4. Would hold off on any further Lasix for now. 5. Likely primary process is respiratory infection. Further recommendations per results of further imaging. Job ID: [id number] MTDD
--- NOTE | 2018-11-25 17:41 | CT ---
CTA OF THE CHEST WITH CONTRAST: 11/25/18 COMPARISON: None. HISTORY: Shortness of breath and chest pain. TECHNIQUE: Multiple contiguous axial images were obtained in a CTA of the chest with contrast per pulmonary embo lism protocol. 3D oblique MIP reformats and direct coronal reformats were performed. FINDINGS: The pulmonary arteries are well opacified without filling defects to suggest pulmonary emboli. The he art is normal in size without cardiac abnormality. The patient is status post sternotomy for CABG. No hilar or mediastinal lymphadenopathy are seen. No pneumothorax or pleural effusion are seen. No suspicious pulmonary nodules are seen. There are are as of air space opacity in the bilateral upper lobes which may represent early infiltrates. Degenerative changes are seen in the spine. The visualized subdiaphragmatic structures are unremarkab le. The chest wall soft tissues are unremarkable. IMPRESSION: 1. No evidence of pulmonary thromboembolism. 2. Possible early bilateral upper lobe infiltrates. POS: [facility]
[2018-11-25] MEDS: cefTRIAXone\\ROCEPHIN 1 GM in Sodium Chloride 0.9% 100 ML IVPB SCH (18:21)
--- NOTE | 2018-11-25 19:38 | ULT ---
BILATERAL LOWER EXTREMITY VENOUS ULTRASOUND: 11/25/18 COMPARISON: None. HISTORY: Bilateral lower extremity edema. TECHNIQUE: Multiplanar gupta scale and color doppler images were obtained in a bilateral lower extremity venous u ltrasound. Spectral analysis of the doppler waveforms were performed. FINDINGS: The bilateral common femoral veins, profunda femoral veins, superficial femoral veins, and popliteal veins are normal in appearance without visible thrombus. These vessels demonstrate normal compression , flow and augmentation. The posterior tibial veins and greater saphenous veins are also patent. IMPRESSION: No evidence of DVT. POS: [facility]
[2018-11-25] MEDS: Nicotine 14 MG PATCH TD SCH (20:51)
[2018-11-25] MEDS: Guaifenesin DM 100-10/5 ML UDCUP PO PRN (20:54)
[2018-11-26 06:36] LABS: #Eosinphils 0.1 thou/uL (0.0-0.7); #Lymphocytes 1.9 thou/uL (1.20-3.40); #Monocytes 0.9 thou/uL (0.11-0.59); #Neutrophils 9.3 thou/uL (1.40-6.50); %Basophils 0.3 % (0.0-1.0); %Lymphocytes 15.7 % (21.0-51.0); %Monocytes 7.2 % (0.0-10.0); %Neutrophils 75.8 % (42.0-75.0); Hemoglobin 12.2 g/dL (14.0-18.0); Mean Corpuscular HGB CONC 34.7 g/dL (32.0-36.0); Mean Corpuscular Hemoglobin 29.1 pg (27.0-31.0); Mean Corpuscular Volume 83.9 fL (78.0-98.0); Mean Platelet Volume 6.9 fL (7.4-10.4); Platelet Count 248 thou/uL (130-400); Red Blood Cell (RBC) Count 4.21 mill/uL (4.70-6.10); White Blood Cell (WBC) Count 12.3 thou/uL (4.8-10.8)
[2018-11-26 07:02] LABS: ALT (SGPT) 19 U/L (8-55); AST (SGOT) 13 U/L (5-34); Albumin 3.1 g/dL (3.5-5.0); Alkaline Phosphatase 59 U/L (40-150); Anion Gap 12 mmol/L (10-20); BUN (Urea Nitrogen) 18 mg/dL (8.4-25.7); Bilirubin, Total 0.4 mg/dL (0.2-1.2); Calc. Creatinine Clearance 89 mL/min (70-130); Calcium 8.7 mg/dL (7.8-10.44); Carbon Dioxide 24 mmol/L (22-29); Chloride 103 mmol/L (98-107); Estimated GFR-MDRD 54; Globulin 2.7 g/dL (2.4-3.5); Glucose 79 mg/dL (70-105); Potassium 4.2 mmol/L (3.5-5.1); Protein, Total 5.8 g/dL (6.0-8.3); Sodium 135 mmol/L (136-145)
[2018-11-26] MEDS: Aspirin 81 mg Enteric Coated Tablet PO SCH (07:57)
[2018-11-26] MEDS: Lisinopril 20 MG TAB PO SCH (07:58)
[2018-11-26] MEDS: Tamsulosin HCl 0.4 MG CAP PO SCH (07:59)
[2018-11-26] MEDS: Famotidine 20 MG TAB PO SCH ×2 (07:59→21:23)
[2018-11-26] MEDS: Acetaminophen 325 MG TAB PO PRN (07:59)
[2018-11-26] MEDS: Clopidogrel Bisulfate 75 MG TAB PO SCH (07:59)
[2018-11-26] MEDS: predniSONE 5 MG TAB PO SCH (07:59)
[2018-11-26] MEDS: Atorvastatin Calcium 20 MG TAB PO SCH (07:59)
[2018-11-26] MEDS: Metoprolol Tartrate 50 MG TAB PO SCH ×2 (08:00→21:22)
[2018-11-26] MEDS: Guaifenesin DM 100-10/5 ML UDCUP PO PRN (08:00)
[2018-11-26] MEDS: Nystatin 500,000 UNITS/5 ML UDCUP SSW SCH ×4 (08:00→21:23)
--- NOTE | 2018-11-26 11:58 | PDOC.PN ---
- Subjective Encounter Start Date: 11/26/18 Encounter Start Time: 09:56 Subjective: Feeling significantly better immediately after abx. Improved weakness. -: Improvement in lower leg edema. No calf pain/tenderness. Afebrile. -: Cough improving, productive for clear sputum. No hemoptysis. No SOB/CP. Seen by Dr. Howard yesterday who felt he would be ok to discharge on oral abx. Patient was hesitant as he wishes to receive IV antibiotics. Aware his WBC improved before abx given. Once told he would be moved from Telemetry to a regular floor, he is now asking to be discharged on oral abx. - Objective Vital Signs & Weight: Vital Signs (12 hours) Temp Pulse Resp BP BP BP Pulse Ox 11/26/18 08:03 98.3 F 83 16 127/58 L 98 11/26/18 07:58 127/58 L 11/26/18 03:36 97.8 F 75 20 122/82 96 11/26/18 00:00 98.1 F 80 20 99/64 95 Weight Admit Weight 242 lb 11.2 oz Weight 231 lb 6.4 oz I&O: 11/25/18 11/26/18 11/27/18 06:59 06:59 06:59 Intake Total 540 1724 Output Total 2250 2895 Balance -1710 -1171 Result Diagrams: 11/26/18 06:21 11/26/18 06:21 Phys Exam - Physical Examination Constitutional: NAD HEENT: PERRLA, moist MMs, sclera anicteric, oral pharynx no lesions Neck: no nodes, no JVD, supple, full ROM Slight improvement with rattling chest sounds. Cardiovascular: RRR Gastrointestinal: soft, non-tender, no distention, positive bowel sounds Musculoskeletal: edema present bilateral legs with +1 pitting edema. Neurological: non-focal, normal sensation, moves all 4 limbs Psychiatric: normal affect, A&O x 3 Skin: no rash Dx/Plan (1) Acute infective exacerbation of chronic obstructive airway disease Code(s): J44.1 - CHRONIC OBSTRUCTIVE PULMONARY DISEASE W (ACUTE) EXACERBATION Status: Acute (2) Acute hyponatremia Code(s): E87.1 - HYPO-OSMOLALITY AND HYPONATREMIA Status: Resolved (3) CHF (congestive heart failure) Code(s): I50.9 - HEART FAILURE, UNSPECIFIED Status: Acute (4) Adrenal insufficiency Code(s): E27.40 - UNSPECIFIED ADRENOCORTICAL INSUFFICIENCY Status: Chronic (5) Smoker Code(s): F17.200 - NICOTINE DEPENDENCE, UNSPECIFIED, UNCOMPLICATED Status: Chronic - Plan cont current plan of care, continue antibiotics PE ruled out. Lower limb edema improving. Awaiting cardiology review. -: Rocephin x 1 today, if cleared form cardiac standpoint, d/c on oral abx. -: D/C telemetry * .
[2018-11-26] MEDS: cefTRIAXone\\ROCEPHIN 1 GM in Sodium Chloride 0.9% 100 ML IVPB SCH (16:21)
[2018-11-26] MEDS ORDERED: cefTRIAXone\\ROCEPHIN 1 GM in Sodium Chloride 0.9% 100 ML IVPB SCH (20:30)
[2018-11-26] MEDS: ALPRAZolam 0.5 MG TAB PO SCH (21:20)
[2018-11-26] MEDS: Nicotine 14 MG PATCH TD SCH (21:22)
[2018-11-27 07:17] VITALS: BP 118/79; TEMP 97.9
[2018-11-27] MEDS: predniSONE 5 MG TAB PO SCH (07:52)
[2018-11-27] MEDS: Aspirin 81 mg Enteric Coated Tablet PO SCH (07:53)
[2018-11-27] MEDS: Clopidogrel Bisulfate 75 MG TAB PO SCH (07:53)
[2018-11-27] MEDS: Famotidine 20 MG TAB PO SCH (07:53)
[2018-11-27] MEDS: Atorvastatin Calcium 20 MG TAB PO SCH (07:53)
[2018-11-27] MEDS: Lisinopril 20 MG TAB PO SCH (07:53)
[2018-11-27] MEDS: Nystatin 500,000 UNITS/5 ML UDCUP SSW SCH (07:54)
[2018-11-27] MEDS: Tamsulosin HCl 0.4 MG CAP PO SCH (07:54)
[2018-11-27] MEDS: Metoprolol Tartrate 50 MG TAB PO SCH (07:54)
[2018-11-27 08:07] LABS: #Basophils 0.1 thou/uL (0.0-0.2); #Eosinphils 0.3 thou/uL (0.0-0.7); #Lymphocytes 1.6 thou/uL (1.20-3.40); #Monocytes 0.9 thou/uL (0.11-0.59); #Neutrophils 10.2 thou/uL (1.40-6.50); %Basophils 0.5 % (0.0-1.0); %Eosinophils 2.3 % (0.0-10.0); %Lymphocytes 12.6 % (21.0-51.0); %Monocytes 6.8 % (0.0-10.0); %Neutrophils 77.9 % (42.0-75.0); Hemoglobin 12.8 g/dL (14.0-18.0); Mean Corpuscular HGB CONC 32.7 g/dL (32.0-36.0); Mean Corpuscular Volume 85.5 fL (78.0-98.0); Platelet Count 231 thou/uL (130-400); RBC Distribution Width 15.3 % (11.5-14.5); Red Blood Cell (RBC) Count 4.59 mill/uL (4.70-6.10)
[2018-11-27 08:21] LABS: ALT (SGPT) 19 U/L (8-55); AST (SGOT) 13 U/L (5-34); Albumin 3.3 g/dL (3.5-5.0); Alkaline Phosphatase 65 U/L (40-150); Anion Gap 12 mmol/L (10-20); BUN (Urea Nitrogen) 17 mg/dL (8.4-25.7); Bilirubin, Total 0.4 mg/dL (0.2-1.2); Calc. Creatinine Clearance 102 mL/min (70-130); Calcium 8.8 mg/dL (7.8-10.44); Carbon Dioxide 19 mmol/L (22-29); Chloride 107 mmol/L (98-107); Estimated GFR-MDRD 63; Globulin 2.8 g/dL (2.4-3.5); Glucose 86 mg/dL (70-105); Protein, Total 6.1 g/dL (6.0-8.3); Sodium 134 mmol/L (136-145)
[2018-11-27] MEDS ORDERED: Triamcinolone 40 MG/ML VIAL IM SCH (09:00)
--- NOTE | 2018-11-27 09:34 | DIS ---
DATE OF ADMISSION: 11/24/2018 DATE OF DISCHARGE: 11/27/2018 PRIMARY CARE PHYSICIAN: Dr. Jin Maier. PRIMARY SUSTAINABILITY ANALYST: En Byrnes MD DISCHARGE DIAGNOSIS: 1. Acute on chronic diastolic congestive heart failure. 2. Probable chronic obstructive pulmonary disease with acute exacerbation. 3. Acute bronchitis. 4. Chest pain. 5. History of abdominal aortic aneurysm. 6. Tobacco abuse. 7. Hypertension. 8. Hyperlipidemia. 9. End-stage renal disease. CONSULTATIONS: Cardiology, Dr. Silverio, followed by Dr. Byrnes. PROCEDURES: Echocardiogram that showed normal EF with some diastolic dysfunction. HISTORY AND PHYSICAL: Mr. Medina is a 58-year-old gentleman who presented to the emergency department for bilateral lower extremity edema and difficulty breathing. He is felt to have an acute exacerbation of COPD. We were subsequently called for admit. HOSPITAL COURSE: The patient was seen and examined by aj Arredondo PA, and placed in observation status. Cardiology was consulted. The patient was found to be hyponatremic secondary to volume overload. He was continued on diuresis and seemed to do well. By 11/26, he was feeling better. Echocardiogram was done with the above findings. CT angiogram done at the request of Cardiology as well as lower extremity ultrasound that was negative for DVT. By 11/26, he is feeling better. He is followed by Dr. Byrnes, who cleared him for discharge with outpatient followup. Today, he is stable for discharge. DISCHARGE PHYSICAL EXAMINATION: The patient was seen and examined on the day of discharge. DISCHARGE PLAN: Disposition was discussed with the patient [id number] at the bedside. DISCHARGE MEDICATION: New medication: 1. Albuterol/ipratropium 3 mL nebulized q.i.d. 2. Nebulizer with accessories. 3. Kenalog 40 mg IM prior to discharge x1. Home medicines to continue: Please see discharge reconciliation sheet. DISCHARGE CONDITION: Stable. DISPOSITION: Discharged home via private vehicle. DISCHARGE ACTIVITY: Per cardiopulmonary limits. DISCHARGE DIET: Heart healthy diet, renal diet recommended. FOLLOWUP APPOINTMENTS: 1. Primary care physician within a week. 2. Dr. Byrnes in 2 to 3 weeks. Job ID: [id number]
== END 2018-11-27 10:37 | disposition home or self-care (01) | DRG 640 ==
LOC: ERS 12:48 → 2NO 17:26 → T4-B 11-26 15:20
PROVIDERS: ADMIT Internal Medicine Infectious Disease; ATTEND Internal Medicine Infectious Disease
DX: E87.1 Hypo-osmolality and hyponatremia (principal); N18.6 End stage renal disease; I50.33 Acute on chronic diastolic (congestive) heart failure; I13.2 Hypertensive heart and chronic kidney disease with heart failure and with stage 5 chronic kidney disease, or end stage renal disease; J44.1 Chronic obstructive pulmonary disease with (acute) exacerbation; J44.0 Chronic obstructive pulmonary disease with (acute) lower respiratory infection; E27.40 Unspecified adrenocortical insufficiency; M32.9 Systemic lupus erythematosus, unspecified; F17.210 Nicotine dependence, cigarettes, uncomplicated; E78.5 Hyperlipidemia, unspecified; M19.90 Unspecified osteoarthritis, unspecified site; J32.9 Chronic sinusitis, unspecified; I25.10 Atherosclerotic heart disease of native coronary artery without angina pectoris; F41.9 Anxiety disorder, unspecified; J20.9 Acute bronchitis, unspecified; Z79.82 Long term (current) use of aspirin; Z96.642 Presence of left artificial hip joint; Z95.1 Presence of aortocoronary bypass graft
CPT/HCPCS: 36415; 71045; 71275; 80053; 83880; 83930; 83935; 84443; 84484; 85025; 87070; 87205; 93005; 93306; 93970; 94640; J0696; J3301; J7050; J7620

== ENCOUNTER 2018-12-17 14:16 | Inpatient (IN) | payer OTHER ==
[2018-12-17 15:34] LABS: Osmolality, Serum 246 mOsm/kg (280-295)
[2018-12-17] MEDS ORDERED: HYDROcodone/Acetaminophen 10/325 mg Tablet ONE (15:34)
[2018-12-17] MEDS ORDERED: Ondansetron PF 4 MG/2 ML Vial ONE (15:34)
[2018-12-17] MEDS ORDERED: Senokot S 8.6-50 MG TAB PO PRN (17:07)
[2018-12-17] MEDS ORDERED: Diabetic Tussin 200 MG/10 ML UDCUP PO PRN (17:07)
[2018-12-17] MEDS ORDERED: Benzonatate 100 MG CAP PO PRN (17:07)
[2018-12-17] MEDS ORDERED: cloNIDine 0.1 MG TAB PO PRN (17:07)
[2018-12-17] MEDS ORDERED: hydrALAZINE 20 MG/ML VIAL SLOW IVP PRN (17:07)
[2018-12-17] MEDS ORDERED: Bisacodyl 5 MG TAB PO PRN (17:07)
[2018-12-17] MEDS ORDERED: Ondansetron PF 4 MG/2 ML Vial IVP PRN (17:07)
[2018-12-17] MEDS ORDERED: Morphine 4 MG/ML VIAL ONE (17:14)
[2018-12-17] MEDS ORDERED: Furosemide 40 MG/4 ML VIAL ONE (17:14)
[2018-12-17] MEDS ORDERED: Pseudoephedrine HCl 30 MG TAB PO PRN (17:43)
[2018-12-17 18:08] LABS: Sodium 114 mmol/L (136-145)
[2018-12-17] MEDS ORDERED: Aspirin 81 mg Enteric Coated Tablet PO SCH (19:00)
--- NOTE | 2018-12-17 19:01 | HP ---
PRIMARY CARE PHYSICIAN: Dr. Jin Maier. PRIMARY GAS WORKER: Dr. Byrnes. PRIMARY FINANCE LECTURER: Dr. Tamayo. HISTORY OF PRESENTING ILLNESS: Mr. Medina is a 58-year-old male, who was recently admitted to our facility in October and was discharged on 11/27/2018, who has past medical history of diastolic congestive heart failure; SLE, on chronic steroids; as well as history of tobacco abuse, heavily in the past; who presented to the ER in [place] with complaints of not feeling well, cough, congestion, and dizziness. History is mainly obtained by the patient himself and supplemented by his family members present in the room. Electronic medical records have been reviewed. Mr. Medina reports that he has not been feeling well since his discharge. He complains of significant congestion, sinus drainage, and feels that his ears are blocked. Because of this, he has been feeling poorly, has poor appetite, and was feeling dizzy and weak. He was seen by his primary care physician about a week ago and was given Rocephin. He reports that he has been on Omnicef for almost a month without any benefit. He was also given a steroid shot in the PCP's office about 2 weeks ago or so. Upon presentation to the emergency room in [place] [facility], he underwent a CT scan of the chest, which showed infiltrate versus edema bilaterally. Important to note was the level of sodium. His sodium level was recorded as 111 in [place] [facility]. Unfortunately, there is no recheck on it since then. His serum osmolality was also low at 246. The patient reports that he has been diagnosed with low sodium in the past and has seen Dr. Tamayo in [facility]. He reportedly is rather noncompliant with fluid restriction. He also reports that he has tried to see Cardiology in the outpatient setting, but has not been able to do so, so far. He has seen his primary care physician for worsening lower extremity swelling about a week ago along with complaints of cough and congestion, and at that time, he was started on Lasix twice a day and one more diuretic that he cannot remember the name of. He is now being admitted to [facility] for severe hyponatremia. He denies any chest pain or significant shortness of breath. He does not have any specific swelling in his legs or his abdomen. Denies any fever or chills. PAST MEDICAL HISTORY: 1. SLE. 2. Hypertension. 3. Dyslipidemia. 4. Chronic adrenal insufficiency. 5. Coronary artery disease, status post CABG in 2013. 6. Left kidney atrophy secondary to complication from AAA repair. 7. Long-term smoker. 8. Osteoarthritis. 9. Chronic kidney disease, stage 4. 10. Chronic sinusitis. PAST SURGICAL HISTORY: 1. Back surgery bilaterally in 2018. 2. Appendectomy. 3. AAA repair in November 2016, then second AAA repair in March 2017 with stenting. 4. Left hip replacement. 5. Hernia repair. 6. Sinus surgery. 7. Heart catheterization. 8. Stent placement on February 10, 2017. SOCIAL HISTORY: He has quit smoking now, but used to smoke half pack per day almost his entire life except for obviously his childhood. No history of drug or alcohol abuse. ALLERGIES: AVELOX. MEDICATIONS: 1. Potassium chloride 10 mEq daily. 2. Dexilant 60 mg daily. 3. Cefdinir 300 mg b.i.d. 4. Bactrim Double Strength b.i.d. 5. Lasix 40 mg b.i.d. 6. Metolazone 5 mg daily. 7. Soma 350 b.i.d. 8. Metoprolol tartrate 50 daily. 9. Alprazolam p.r.n. 10. Promethazine p.r.n. 11. Atorvastatin unknown dose. 12. Lisinopril 40 mg daily. FAMILY HISTORY: He denies any significant family history of coronary artery disease or congestive heart failure. REVIEW OF SYSTEMS: A 12-point review of system is done. It is negative except for those mentioned in history and physical. LABORATORY DATA: CBC shows WBC 16.7, hemoglobin 12.5, platelet count 368, neutrophils 81%. Sodium 111, potassium 5.1, chloride 80, bicarb 20, anion gap 16, BUN 28, creatinine 1.55, osmolality 246. Liver enzymes within normal limits. BNP normal at 19.7. PHYSICAL EXAMINATION: VITAL SIGNS: Upon presentation, blood pressure 113/70, pulse of 77, respirations 26, temperature 98.2, saturating 100% on room air. GENERAL: In no acute distress. Awake, alert, and oriented x3. He gets easily winded with the conversation, but is in no acute respiratory distress. HEENT: Mucous membrane is moist and pink. No oropharyngeal exudate or erythema. Head is normocephalic and atraumatic. Pupils are equal, reactive to light and accommodation. Extraocular movement is intact. NECK: Supple without any lymphadenopathy, JVD, or bruit. CHEST: Clear to auscultation except for some bibasilar crackles. No wheezing heard. HEART: Rate and rhythm are regular without any murmurs, rubs, or gallops. ABDOMEN: Obese, soft, nontender, nondistended with positive bowel sounds. EXTREMITIES: Free of any cyanosis, clubbing, or edema. NEUROLOGIC: Nonfocal. SKIN: Free of any rashes or bruises. PSYCHIATRIC: Normal exam. IMAGING STUDIES: CT scan of the chest by my review shows [id number] fluid bilaterally in the lungs without any evidence of significant infiltrate. IMPRESSION AND PLAN: 1. Hyponatremia. We will repeat a stat sodium at this time. He has received a dose of Lasix in the ER as possibly fluid overload as a cause of his hyponatremia. We will hold further diuretics and follow the sodium levels with strict free water restriction. The patient has history of noncompliance with fluid restriction. Syndrome of inappropriate antidiuretic hormone secretion also cannot be ruled out. We will consult Nephrology, Dr. Tamayo. We will do sodium check every 4 to 6 hours with the rate of correction not more than 10 mEq in 24 hours. He will be admitted to [facility] for severe hyponatremia at this time. 2. Acute renal insufficiency. We will hold the Lasix, metolazone, Bactrim, and lisinopril for now. Renal function will be monitored closely. 3. Leukocytosis. This is secondary to the steroids that the patient has received about a week ago. We will monitor. 4. Chronic sinusitis. We will hold his cefdinir for now as the patient has not had any benefit on it despite being on it for almost a month. We will put him on decongestants and nasal steroids and add IV steroids in a small dose for short course. Add mucolytics as well to see if he benefits. Add Mucinex as well. 5. History of coronary artery disease. We will restart his home medications, which seemed to be aspirin, statin, and Plavix. 6. History of chronic obstructive pulmonary disease, no formal diagnosis has been made. We will use nebulizers only on as needed basis. 7. Hypertension. Restart home medications once confirmed. 8. Systemic lupus erythematosus. The patient takes daily prednisone. At this time, he will be on IV steroids, given acute illness and history of chronic adrenal insufficiency as well. 9. Deep venous thrombosis and gastrointestinal prophylaxis and p.r.n. medications. DISPOSITION: Mr. Medina is currently being admitted to the hospital with severe hyponatremia. Estimated length of stay is at least 2 to 3 midnights. Further management will depend upon his clinical course. Job ID: [id number]
[2018-12-17 19:50] LABS: Sodium 116 mmol/L (136-145)
[2018-12-17] MEDS ORDERED: Metoprolol Tartrate 50 MG TAB PO SCH (21:00)
[2018-12-17] MEDS ORDERED: Enoxaparin Sodium 120 MG/0.8 ML SYRINGE SC SCH (21:45)
[2018-12-17] MEDS: Heparin 5,000 UNITS/ML VIAL SC SCH (22:54)
[2018-12-17] MEDS: Acetaminophen 325 MG TAB PO PRN (23:18)
[2018-12-17] MEDS: Famotidine 20 MG TAB PO SCH (23:18)
[2018-12-17] MEDS: guaiFENesin ER 600 MG TAB PO SCH (23:18)
[2018-12-18] MEDS: Calcium Carbonate 500 MG ChewTAB PO PRN ×2 (00:09→05:55)
[2018-12-18] MEDS ORDERED: ALPRAZolam 0.25 MG TAB PO SCH (01:30)
[2018-12-18] MEDS ORDERED: Metoprolol Tartrate 25 MG TAB PO SCH (01:30)
--- NOTE | 2018-12-18 01:39 | CON ---
DATE OF CONSULTATION: REASON FOR CONSULTATION: Hyponatremia. HISTORY OF PRESENT ILLNESS: This is a 58-year-old noncompliant gentleman seen for hyponatremia possibly at [facility], presented to the hospital with weakness, who was noted to have a sodium of 111. I was consulted. The patient states that he drinks excessively mostly tea. The patient denies weakness, headache, numbness, or tingling at this time. PAST MEDICAL HISTORY: Significant for hyponatremia, hypertension, CABG, atrophic left kidney with AAA repair, history of osteoarthritis, renal insufficiency, collagen vascular disease, bilateral back surgery, AAA repair, hernia repair, and sinus surgery. SOCIAL HISTORY: No alcohol or drug use. FAMILY HISTORY: Negative for ESRD. ALLERGIES: REVIEWED. HOME MEDICATIONS: List reviewed. REVIEW OF SYSTEMS: A 15-point review of systems was performed and was negative except for positives noted above. GENERAL: HEAD: NECK: No swelling or lumps. NOSE: No epistaxis or discharge. EYES: No diplopia or pain. 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 NEUROPSYCHIATRIC SYSTEMS: No suicidal ideation. No ideation. SKIN: Denies any rash or ulcer. CONSTITUTIONAL: No fever or chills. PHYSICAL EXAMINATION: GENERAL: The patient is awake and alert. VITAL SIGNS: Reviewed. GENERAL APPEARANCE AND MENTAL STATUS: Fair. HEAD/NECK: Normocephalic. Atraumatic. EYES: EOMI. No deformity. EARS: Clear. No ulcers. NOSE: Intact. No lesions. MOUTH: Clear. No discharge. THROAT: Clear. No exudate. LUNGS: Clear. No crackles. CARDIAC: S1, S2. No rub. ABDOMEN: Benign. Bowel sounds positive. GENITALIA/RECTUM: [place] absent. BACK/EXTREMITIES: Edema 0+. NEUROLOGICAL: Alert and motor intact. SKIN: LYMPHATICS: LABORATORY DATA: Labs show sodium 111, osmolality 245. ASSESSMENT AND PLAN: 1. Acute kidney injury with chronic kidney disease due to unilateral kidney kidney. 2. Hyponatremia due to syndrome of inappropriate antidiuretic hormone secretion and excessive volume overload. We will recommend 800 mL fluid restriction and checking sodium every 6 hours. No indication for hypertonic saline at this time. We will repeat labs and follow sodium alone. Overall prognosis is extremely poor for cardiovascular or cerebrovascular mortality. Job ID: [id number] [facility]
[2018-12-18 01:44] LABS: Sodium 114 mmol/L (136-145)
[2018-12-18 02:13] LABS: Troponin I 0.015 ng/mL (< 0.028)
[2018-12-18 05:42] LABS: Bilirubin Negative (Negative); Blood, Urine Trace (Negative); Clarity CLEAR (Clear); Glucose, Urine (Dipstick) Negative (Negative); Leukocyte Negative (Negative); Nitrite Negative (Negative); Protein, Urine (Dipstick) Negative (Neg-Trace); Urobilinogen 0.2 mg/dL (0.2-1.0)
[2018-12-18 05:44] LABS: Bacteria/HPF None Seen HPF (None Seen); Hyaline Casts/LPF 0-3 HYALINE CAST LPF (0-3 Hyaline); Pathc Cast-AUWi Flag 0.29 (0-2.49); Squamous Epithelial None Seen HPF (0-3); WBC/HPF None Seen HPF (0-3)
[2018-12-18] MEDS: Ondansetron PF 4 MG/2 ML Vial IVP PRN ×2 (05:46→13:41)
[2018-12-18] MEDS ORDERED: Furosemide 40 MG/4 ML VIAL SLOW IVP SCH (06:00)
[2018-12-18 06:52] LABS: #Eosinphils 0.1 thou/uL (0.0-0.7); #Lymphocytes 0.7 thou/uL (1.20-3.40); #Monocytes 1.2 thou/uL (0.11-0.59); #Neutrophils 14.5 thou/uL (1.40-6.50); %Basophils 0.1 % (0.0-1.0); %Eosinophils 0.3 % (0.0-10.0); %Lymphocytes 4.5 % (21.0-51.0); %Monocytes 7.4 % (0.0-10.0); %Neutrophils 87.7 % (42.0-75.0); Hemoglobin 12.8 g/dL (14.0-18.0); Mean Corpuscular HGB CONC 33.4 g/dL (32.0-36.0); Mean Corpuscular Volume 83.7 fL (78.0-98.0); Mean Platelet Volume 6.4 fL (7.4-10.4); Platelet Count 337 thou/uL (130-400); RBC Distribution Width 15.2 % (11.5-14.5); Red Blood Cell (RBC) Count 4.58 mill/uL (4.70-6.10); White Blood Cell (WBC) Count 16.5 thou/uL (4.8-10.8)
[2018-12-18 07:00] LABS: Anion Gap 15 mmol/L (10-20); BUN (Urea Nitrogen) 32 mg/dL (8.4-25.7); Calc. Creatinine Clearance 70 mL/min (70-130); Calcium 10.1 mg/dL (7.8-10.44); Carbon Dioxide 22 mmol/L (22-29); Chloride 81 mmol/L (98-107); Estimated GFR-MDRD 41; Glucose 110 mg/dL (70-105); Potassium 4.1 mmol/L (3.5-5.1)
[2018-12-18 07:07] LABS: Sodium 114 mmol/L (136-145)
[2018-12-18] MEDS ORDERED: Non-Formulary Item 1 EACH (Ranitidine Hcl [Ranitidine Hcl] 150 MG) PO SCH (09:00)
[2018-12-18] MEDS ORDERED: DEXLANSOPRAZOLE 30 MG PO SCH (09:00)
[2018-12-18] MEDS: Heparin 5,000 UNITS/ML VIAL SC SCH (10:18)
[2018-12-18] MEDS: Clopidogrel Bisulfate 75 MG TAB PO SCH (10:18)
[2018-12-18] MEDS: Famotidine 20 MG TAB PO SCH ×2 (10:19→20:58)
[2018-12-18] MEDS: guaiFENesin ER 600 MG TAB PO SCH ×2 (10:19→20:59)
[2018-12-18] MEDS: Tamsulosin HCl 0.4 MG CAP PO SCH (10:19)
[2018-12-18] MEDS: Aspirin 81 mg Enteric Coated Tablet PO SCH (10:25)
[2018-12-18] MEDS: Atorvastatin Calcium 20 MG TAB PO SCH (10:25)
[2018-12-18] MEDS: Fluticasone Propionate Nasal Spray 16 gm Bottle NASAL SCH (10:40)
--- NOTE | 2018-12-18 10:41 | NM ---
NUCLEAR MEDICINE VENTILATION PERFUSION STUDY: Date: 12/18/18 HISTORY: Shortness of breath. Elevated D-Dimer. Tachycardia. COMPARISON: CT dated 12/17/18. FINDINGS: Patient had difficulty breathing during the ventilation portion of the study. The ventilation study w as performed using 16 mCi Xenon-133 gas, followed by the perfusion study using 5.8 mCi 99m technetium MAA. There is somewhat patchy ventilation, some of which may have been related to the poor inspiration. Th e perfusion portion of the study shows no segmental or subsegmental defects. IMPRESSION: Findings consistent with very low probability of pulmonary embolus. POS: [facility]
--- NOTE | 2018-12-18 10:46 | RAD ---
2 VIEWS CHEST: Date: 12/18/18 PROVIDED CLINICAL HISTORY: Chest pain. FINDINGS: Comparison with 12/05/18. Cardiac and mediastinal silhouette is unchanged in appearance. Median sternotomy changes are seen. No focal consolidation, pleural fluid, or pneumothorax apparent. IMPRESSION: No evidence for an acute cardiopulmonary process. POS: [facility]
--- NOTE | 2018-12-18 12:07 | PRG ---
DATE OF SERVICE: 12/18/2018 SUBJECTIVE: A 58-year-old gentleman, being seen for hyponatremia. His creatinine has risen today. The patient denies no major weakness, but does have dyspnea. OBJECTIVE: GENERAL: On exam, the patient is awake and alert. VITAL SIGNS: Afebrile, pulse 97, breathing 16, and blood pressure 109/75. GENERAL APPEARANCE AND MENTAL STATUS: Fair. HEAD/NECK: Normocephalic. Atraumatic. EYES: EOMI. No deformity. EARS: Clear. No ulcers. NOSE: Intact. No lesions. MOUTH: Clear. No discharge. THROAT: Clear. No exudate. LUNGS: Clear. No crackles. CARDIAC: S1, S2. No rub. ABDOMEN: Benign. Bowel sounds positive. GENITALIA/RECTUM: [place] absent. BACK/EXTREMITIES: Edema 0+. NEUROLOGICAL: Alert and motor intact. SKIN: LYMPHATICS: LABORATORY DATA: Labs show sodium has went up to 116 last night and dropped down to 114. ASSESSMENT AND PLAN: 1. Hyponatremia in the setting of acute kidney injury as well as hypo-osmolality, would continue 800 mL fluid restriction. The patient is making urine, has had a 1000 mL output in the last couple of hours. I will recheck labs again today. No urgent indication for hypotonic saline. If the sodium does not improve in the next lab, we will consider hypertonic saline. 2. Hypertension. 3. Chronic kidney disease with acute kidney injury, multifactorial. 4. Unilateral kidney. Job ID: [id number]
[2018-12-18 12:08] LABS: Anion Gap 17 mmol/L (10-20); BUN (Urea Nitrogen) 33 mg/dL (8.4-25.7); Calc. Creatinine Clearance 67 mL/min (70-130); Calcium 10.5 mg/dL (7.8-10.44); Carbon Dioxide 21 mmol/L (22-29); Chloride 83 mmol/L (98-107); Estimated GFR-MDRD 39; Glucose 108 mg/dL (70-105)
[2018-12-18 12:12] LABS: Sodium 117 mmol/L (136-145)
[2018-12-18] MEDS: Piperacillin/Tazobactam 3.375 GM in Sodium Chloride 0.9% 100 ML IVPB SCH ×2 (13:41→19:58)
--- NOTE | 2018-12-18 14:21 | ULT ---
BILATERAL LOWER EXTREMITY VENOUS DOPPLER: Date: 12/18/18 PROVIDED CLINICAL HISTORY: Evidence for deep venous thrombosis. FINDINGS: Laughlin scale and color Doppler sonography with spectral analysis performed of the bilateral common femo ral, femoral, popliteal, posterior tibial, greater saphenous, and profunda femoral veins, demonstrati ng a normal sonographic appearance to each. IMPRESSION: No sonographic evidence for lower extremity deep venous thrombosis. POS: [facility]
--- NOTE | 2018-12-18 14:51 | PDOC.PN ---
- Subjective Encounter Start Date: 12/18/18 Encounter Start Time: 14:49 Subjective: feels terrible"like im going to " -: he is requesting Abx as he feels he has worsening infection -: c/o headache.backache,chills,dizziness & green, copious nasal discharge - Objective MAR Reviewed: Yes Vital Signs & Weight: Vital Signs (12 hours) Temp Pulse Resp BP Pulse Ox 12/18/18 11:05 97.8 F 97 22 H 109/75 93 L 12/18/18 07:34 98.0 F 84 20 108/74 97 12/18/18 04:26 97.0 F L 107 H 20 108/65 98 Weight Weight 233 lb 1.6 oz I&O: 12/17/18 12/18/18 12/19/18 06:59 06:59 06:59 Intake Total 240 Output Total 700 Balance -460 Result Diagrams: 12/18/18 06:35 12/18/18 11:37 Additional Labs: Microbiology 12/17/18 19:51 Venous blood - Right Arm Blood Culture - Preliminary Specimen has been received and culture in progress. No Growth to date. 12/17/18 19:51 Venous blood - Left Arm Blood Culture - Preliminary Specimen has been received and culture in progress. No Growth to date. Laboratory Tests 12/05/18 12/17/18 12/17/18 13:55 11:40 17:44 Sodium 114 L* Creatinine 1.30 1.55 H Troponin I 12/17/18 12/17/18 12/18/18 19:05 19:05 01:13 Sodium 116 L* 114 L* Creatinine Troponin I Less than 0.010 12/18/18 12/18/18 12/18/18 01:13 06:35 11:37 Sodium 114 L* 117 L* Creatinine 1.71 H Troponin I 0.015 Phys Exam - Physical Examination Sick and pale looking.uncomfortable HEENT: PERRLA, moist MMs, sclera anicteric, oral pharynx no lesions Neck: no nodes, no JVD, supple, full ROM Respiratory: wheezing present coarse b/l Cardiovascular: RRR, no significant murmur Gastrointestinal: soft, non-tender, no distention, positive bowel sounds Musculoskeletal: no edema, pulses present Neurological: non-focal, normal sensation, moves all 4 limbs Psychiatric: normal affect, A&O x 3 Skin: no rash Dx/Plan (1) Hyponatremia Code(s): E87.1 - HYPO-OSMOLALITY AND HYPONATREMIA Status: Acute (2) TAJ (acute kidney injury) Code(s): N17.9 - ACUTE KIDNEY FAILURE, UNSPECIFIED Status: Acute (3) Hypotension Status: Acute (4) Tachycardia Code(s): R00.0 - TACHYCARDIA, UNSPECIFIED Status: Acute (5) HLD (hyperlipidemia) Code(s): E78.5 - HYPERLIPIDEMIA, UNSPECIFIED Status: Acute (6) Chronic stage c diastolic heart failure Code(s): I50.32 - CHRONIC DIASTOLIC (CONGESTIVE) HEART FAILURE Status: Acute (7) Coronary artery disease Code(s): I25.10 - ATHSCL HEART DISEASE OF [place] CORONARY ARTERY W/O ANG PCTRS Status: Acute (8) Osteoarthritis of hip Code(s): M16.9 - OSTEOARTHRITIS OF HIP, UNSPECIFIED Status: Acute (9) S/P CABG x 3 Code(s): Z95.1 - PRESENCE OF AORTOCORONARY BYPASS GRAFT Status: Acute (10) SLE (systemic lupus erythematosus) Code(s): M32.9 - SYSTEMIC LUPUS ERYTHEMATOSUS, UNSPECIFIED Status: Chronic - Plan plan discussed w/ family, continue antibiotics, PT/OT, respiratory therapy, incentive spirometry, DVT proph w/SCDs PE ruled out.V/Q low probability.change lovenox to prophylaxis dose -: BP better.troponin checked and negative. last echo reviewed. -: ? sepsis for sinusitis etc.will add empiric Abx given clinical worsening -: consult ID.No leucocytosis or fever but tachycaric & hypotesive w/o cause -: hold sedatives,Soma etc d/t low BP * .supportive care. IV steroids,Nebs,flonase * Pt is immunocompromised due to SLE & ilya prednisone Rx * am labs * High risk of deterioration * sodium better. cont fluid restriction per nephrology.lasix on hold as per Nephrology instructions to prevent quick correction/CPM * DC HCTZ. Review of Systems - Review of Systems Constitutional: chills, weakness, malaise ENT: Nose Discharge, Nose Congestion. negative: Ear Pain, Ear Discharge, Nose Pain, Mouth Pain, Mouth Swelling, Throat Pain, Throat Swelling, Other Respiratory: Cough, Shortness of Breath, SOB with Excertion, Sputum, Wheezing. negative: Dry, Hemoptysis, Pleuritic Pain Cardiovascular: negative: chest pain, palpitations, orthopnea, paroxysmal nocturnal dyspnea, edema, light headedness, other Gastrointestinal: Nausea. negative: Vomiting, Abdominal Pain, Diarrhea, Constipation, Melena, Hematochezia, Other Genitourinary: negative: Dysuria, Frequency, Incontinence, Hematuria, Retention , Other Musculoskeletal: Back Pain, Leg Pain. negative: Neck Pain, Shoulder Pain, Arm Pain, Hand Pain, Foot Pain, Other Skin: negative: Rash, Lesions, Tremaine, Bruising, Other Neurological: negative: Weakness, Numbness, Incoordination, Change in Speech, Confusion, Seizures, Other - Medications/Allergies Allergies/Adverse Reactions: Allergies Allergy/AdvReac Type Severity Reaction Status Date / Time moxifloxacin [From Avelox] Allergy Rash Verified 11/24/18 17:33 Medications: Current Medications Acetaminophen (Tylenol) 650 mg PO Q4H PRN PRN Reason: Headache/Fever/Mild Pain (1-3) Last Admin: 12/17/18 23:18 Dose: 650 mg Albuterol/Ipratropium (Duoneb) 3 ml NEB [id number]-[id number] PRN PRN Reason: SOB &/or Wheezing Last Admin: 12/18/18 00:53 Dose: 3 ml Alprazolam (Xanax) 0.5 mg PO TID PRN PRN Reason: Anxiety Aspirin (Ecotrin) 81 mg PO DAILY [facility] Last Admin: 12/18/18 10:25 Dose: 81 mg Atorvastatin Calcium (Lipitor) 20 mg PO DAILY [facility] Last Admin: 12/18/18 10:25 Dose: 20 mg Benzonatate (Tessalon) 100 mg PO Q6H PRN PRN Reason: Cough Bisacodyl (Dulcolax) 10 mg PO DAILYPRN PRN PRN Reason: Constipation Calcium Carbonate (Tums) 1,000 mg PO Q4H PRN PRN Reason: Heartburn or Indigestion Last Admin: 12/18/18 05:55 Dose: 1,000 mg Clonidine (Catapres) 0.1 mg PO Q4H PRN PRN Reason: SBP > _160___ Clopidogrel Bisulfate (Plavix) 75 mg PO DAILY [facility] Last Admin: 12/18/18 10:18 Dose: 75 mg Enoxaparin Sodium (Lovenox) 40 mg SC 2100 [facility] Famotidine (Pepcid) 20 mg PO BID [facility] Last Admin: 12/18/18 10:19 Dose: 20 mg Fluticasone Propionate (Flonase Nasal [place]) 0 gm NASAL DAILY [facility] Last Admin: 12/18/18 10:40 Dose: Not Given Guaifenesin (Robitussin Sf) 200 mg PO Q4H PRN PRN Reason: Cough Last Admin: 12/17/18 23:19 Dose: 200 mg Guaifenesin (Mucinex) 1,200 mg PO Q12HR [facility] Last Admin: 12/18/18 10:19 Dose: 1,200 mg Heparin Sodium (Porcine) (Heparin) 5,000 units SC BID [facility] Last Admin: 12/18/18 10:18 Dose: 5,000 units Hydralazine HCl (Apresoline) 10 mg SLOW IVP Q4H PRN PRN Reason: SBP > 180 and HR < 70 Piperacillin Sod/Tazobactam (Sod 3.375 gm/ Sodium Chloride) 100 mls @ 200 mls/ hr IVPB Q6HR [facility] Last Admin: 12/18/18 13:41 Dose: 100 mls Vancomycin HCl 2 gm/ Sodium (Chloride) 500 mls @ 250 mls/hr IVPB Q24HR [facility] Methylprednisolone Sodium Succinate (Solu-Medrol) 40 mg IVP DAILY [facility] Last Admin: 12/18/18 10:18 Dose: 40 mg Miscellaneous Medication (Pharmacy To Dose) 0 each IVPB ASDIR [facility] Ondansetron HCl (Zofran) 4 mg IVP Q6H PRN PRN Reason: Nausea/Vomiting Last Admin: 12/18/18 13:41 Dose: 4 mg Pantoprazole Sodium (Protonix) 40 mg PO DAILY [facility] Pseudoephedrine HCl (Sudafed) 30 mg PO Q6H PRN PRN Reason: Nasal Congestion Senna/Docusate Sodium (Senokot S) 2 tab PO BID PRN PRN Reason: Constipation Sodium Chloride (Flush - Normal Saline) 10 ml IVF Q12HR [facility] Sodium Chloride (Flush - Normal Saline) 10 ml IVF PRN PRN PRN Reason: Saline Flush Tamsulosin HCl (Flomax) 0.4 mg PO DAILY [facility] Last Admin: 12/18/18 10:19 Dose: 0.4 mg
[2018-12-18 19:26] LABS: Anion Gap 17 mmol/L (10-20); BUN (Urea Nitrogen) 31 mg/dL (8.4-25.7); Calc. Creatinine Clearance 72 mL/min (70-130); Calcium 10.4 mg/dL (7.8-10.44); Carbon Dioxide 20 mmol/L (22-29); Chloride 85 mmol/L (98-107); Estimated GFR-MDRD 42; Glucose 121 mg/dL (70-105)
[2018-12-18 19:32] LABS: Sodium 118 mmol/L (136-145)
[2018-12-18] MEDS: Enoxaparin Sodium 40 MG/0.4 ML SYRINGE SC SCH (20:49)
[2018-12-18] MEDS: Acetaminophen 325 MG TAB PO PRN (20:58)
[2018-12-18] MEDS: ALPRAZolam 0.5 MG TAB PO PRN (20:59)
[2018-12-18] MEDS ORDERED: Vancomycin HCl 1 GM in Premix Bag 1 BAG IVPB SCH (21:00)
[2018-12-19] MEDS: Piperacillin/Tazobactam 3.375 GM in Sodium Chloride 0.9% 100 ML IVPB SCH ×5 (01:02→23:37)
[2018-12-19] MEDS: Ipratropium Bromide 0.03% Nasal Inhaler 30 ml Bottle EA NARE SCH ×3 (01:02→21:50)
--- NOTE | 2018-12-19 02:38 | CON ---
DATE OF CONSULTATION: 12/18/2018 HISTORY OF PRESENT ILLNESS: Walt Medina is a 58-year-old male. He has a reported history of lupus and diastolic heart failure. He presented to the hospital with complaints of cough and chest congestion for several days. He was just discharged from the hospital at the end of last year and says he never fully recover from being in the hospital that time. Fortunately, he is a heavy smoker. He says he is feeling little better than on on presentation. I was consulted because of his presence in the intermediate care unit. PAST MEDICAL HISTORY: Remarkable for; 1. Lupus, it is unclear who manages his lupus. 2. Hypertension. 3. Lipid disorder. 4. Steroid dependence. 5. History of coronary artery bypass grafting 2013. 6. History of left kidney atrophy secondary to complications from an abdominal aortic aneurysm repair. 7. Degenerative arthritis. 8. Chronic kidney disease. 9. History of back surgery. 10. History of an appendectomy. 11. History of two abdominal aortic aneurysm repairs. 12. History of hip replacement. 13. History of herniorrhaphy. 14. History of coronary stenting. SOCIAL HISTORY: He is not a drinker, never has been a drinker. He does not use drugs. ALLERGIES: HE HAS NO DRUG ALLERGIES WITH THE EXCEPTION OF AVELOX REPORTED. MEDICATIONS: Prior to admission, he was on Dexilant, potassium, Omnicef, Bactrim, Lasix, metolazone, Soma, metoprolol, alprazolam, promethazine, atorvastatin, and lisinopril. FAMILY HISTORY: Negative for lung disease in early age. REVIEW OF SYSTEMS: Ten-point review of systems completed, otherwise negative. PHYSICAL EXAMINATION: GENERAL: He is afebrile. VITALS: Heart rate is 97, respiratory rate is 23, oximetry is 94% on room air, and blood pressure 108/76. HEENT: Pupils are equal. Sclerae, anicteric. NECK: Supple. LUNGS: Remarkable for bilateral wheezes. HEART: Regular rhythm. S1 and S2 are normal. ABDOMEN: Soft and nontender. EXTREMITIES: Without clubbing, cyanosis, or edema. DIAGNOSTIC STUDIES: Nuclear perfusion study did not show anything suggestive of thromboembolic disease. Chest radiographs, free of infiltrates. LABORATORY DATA: Blood cultures are negative. IMPRESSION: 1. Asthmatic bronchitis. 2. Severe hyponatremia. By reviewing old lab, he has never had sodium less than 129, so this is new for him. Majority of his sodiums have been normal dating back several years. Etiology of this is unclear. Nephrology was consulted. With regard to his respiratory issues, I suspect he has asthmatic bronchitis. He has been counseled about his smoking. His current dose of steroid should be adequate both for the mild wheezing and the hyponatremia. It is unlikely this is related to adrenal insufficiency. His antibiotics probably need to be simplified as he is on Zosyn with no infiltrates on chest x-ray and negative blood cultures. Nasal ipratropium may help with his complaints of sinus congestion and sinus drainage. I would discontinue his vancomycin for sure since he has one kidney with no clear evidence of an MRSA infection. TIME SPENT: This is a 70-minute consult, with greater than 50% of the time spent on the unit coordinating care. Job ID: [id number] MTDD
[2018-12-19] MEDS: ALPRAZolam 0.5 MG TAB PO PRN ×2 (04:28→21:48)
[2018-12-19] MEDS: Acetaminophen 325 MG TAB PO PRN ×2 (04:28→21:48)
[2018-12-19 05:53] LABS: #Basophils 0.1 thou/uL (0.0-0.2); #Eosinphils 0.1 thou/uL (0.0-0.7); #Lymphocytes 1.1 thou/uL (1.20-3.40); #Monocytes 1.3 thou/uL (0.11-0.59); %Basophils 0.3 % (0.0-1.0); %Eosinophils 0.4 % (0.0-10.0); %Lymphocytes 6.6 % (21.0-51.0); %Monocytes 7.9 % (0.0-10.0); %Neutrophils 84.7 % (42.0-75.0); Hemoglobin 13.4 g/dL (14.0-18.0); Mean Corpuscular HGB CONC 34.2 g/dL (32.0-36.0); Mean Corpuscular Volume 84.7 fL (78.0-98.0); Platelet Count 328 thou/uL (130-400); Red Blood Cell (RBC) Count 4.62 mill/uL (4.70-6.10); White Blood Cell (WBC) Count 16.5 thou/uL (4.8-10.8)
[2018-12-19 06:50] LABS: Chloride 87 mmol/L (98-107); Potassium 3.2 mmol/L (3.5-5.1)
[2018-12-19 06:51] LABS: Calcium 9.5 mg/dL (7.8-10.44); Glucose 103 mg/dL (70-105); Magnesium 1.9 mg/dL (1.6-2.6)
[2018-12-19 06:53] LABS: Anion Gap 15 mmol/L (10-20); Carbon Dioxide 20 mmol/L (22-29)
[2018-12-19 06:54] LABS: Sodium 119 mmol/L (136-145)
[2018-12-19 06:55] LABS: Calc. Creatinine Clearance 71 mL/min (70-130); Estimated GFR-MDRD 42
[2018-12-19 06:56] LABS: BUN (Urea Nitrogen) 29 mg/dL (8.4-25.7)
[2018-12-19] MEDS: Famotidine 20 MG TAB PO SCH ×2 (08:53→21:44)
[2018-12-19] MEDS: Aspirin 81 mg Enteric Coated Tablet PO SCH (08:53)
[2018-12-19] MEDS: guaiFENesin ER 600 MG TAB PO SCH ×2 (08:53→21:44)
[2018-12-19] MEDS: Clopidogrel Bisulfate 75 MG TAB PO SCH (08:54)
[2018-12-19] MEDS: Atorvastatin Calcium 20 MG TAB PO SCH (08:54)
[2018-12-19] MEDS: Tamsulosin HCl 0.4 MG CAP PO SCH (08:54)
[2018-12-19] MEDS ORDERED: Doxycycline 100 MG CAP PO SCH (09:00)
[2018-12-19] MEDS ORDERED: Potassium Chloride 20 MEQ TAB PO SCH (09:30)
--- NOTE | 2018-12-19 10:24 | PRG ---
DATE OF SERVICE: 12/19/2018 SUBJECTIVE: A 58-year-old gentleman is being seen for hyponatremia. The patient denies any nausea, vomiting, or chest pain. OBJECTIVE: GENERAL: The patient is awake and alert. VITAL SIGNS: Afebrile, pulse breathing 16, blood pressure 105/62. GENERAL APPEARANCE AND MENTAL STATUS: Fair. HEAD/NECK: Normocephalic. Atraumatic. EYES: EOMI. No deformity. EARS: Clear. No ulcers. NOSE: Intact. No lesions. MOUTH: Clear. No discharge. THROAT: Clear. No exudate. LUNGS: Clear. No crackles. CARDIAC: S1, S2. No rub. ABDOMEN: Benign. Bowel sounds positive. GENITALIA/RECTUM: [place] absent. BACK/EXTREMITIES: Edema 0+. NEUROLOGICAL: Alert and motor intact. LABORATORY DATA: Sodium is 119. ASSESSMENT AND PLAN: Hyponatremia, improved. Chronic kidney disease with acute kidney injury, stable. Hypotension. We will recommend giving IV fluids and rechecking sodium in 2 hours. The patient will also need some mineralocorticoid therapy. Medication based on GFR appropriate. Job ID: [id number]
[2018-12-19] MEDS: Fludrocortisone Acetate 0.1 MG TAB PO SCH ×2 (12:20→21:45)
[2018-12-19 13:01] LABS: Potassium 4.3 mmol/L (3.5-5.1)
[2018-12-19] MEDS: Senokot S 8.6-50 MG TAB PO PRN (13:42)
[2018-12-19] MEDS: Fluticasone Propionate Nasal Spray 16 gm Bottle NASAL SCH (14:07)
--- NOTE | 2018-12-19 14:14 | PDOC.PN ---
- Subjective Encounter Start Date: 12/19/18 Encounter Start Time: 14:12 Subjective: " i haven't felt this good in months" -: much imroved congestion and nasal discharge -: still quite weak - Objective MAR Reviewed: Yes Vital Signs & Weight: Vital Signs (12 hours) Temp Pulse Pulse Pulse Resp BP BP 12/19/18 12:03 100 20 12/19/18 11:11 98.4 F 114 H 19 12/19/18 08:55 111 H 112 H 100/64 110/66 12/19/18 07:14 97.8 F 109 H 17 12/19/18 03:42 98.5 F 119 H 20 BP Pulse Ox Pulse Ox Pulse Ox 12/19/18 12:03 95 12/19/18 11:11 106/75 98 12/19/18 08:55 99 99 12/19/18 07:14 105/62 95 12/19/18 03:42 102/78 97 Weight Admit Weight 233 lb 1.6 oz Weight 231 lb I&O: 12/18/18 12/19/18 12/20/18 06:59 06:59 06:59 Intake Total 240 440 Output Total 700 1170 Balance -460 -730 Result Diagrams: 12/19/18 05:07 12/19/18 12:43 Additional Labs: Microbiology 12/17/18 19:51 Venous blood - Right Arm Blood Culture - Preliminary Specimen has been received and culture in progress. No Growth to date. 12/17/18 19:51 Venous blood - Left Arm Blood Culture - Preliminary Specimen has been received and culture in progress. No Growth to date. Phys Exam - Physical Examination Constitutional: NAD HEENT: PERRLA, moist MMs, sclera anicteric, oral pharynx no lesions Neck: no nodes, no JVD, supple, full ROM Respiratory: no wheezing, no rales, no rhonchi, clear to auscultation bilateral Cardiovascular: RRR, no significant murmur, no rub Gastrointestinal: soft, non-tender, no distention, positive bowel sounds Musculoskeletal: no edema, pulses present Neurological: non-focal, normal sensation, moves all 4 limbs Psychiatric: normal affect, A&O x 3 Skin: no rash Dx/Plan (1) Hyponatremia Code(s): E87.1 - HYPO-OSMOLALITY AND HYPONATREMIA Status: Acute (2) TAJ (acute kidney injury) Code(s): N17.9 - ACUTE KIDNEY FAILURE, UNSPECIFIED Status: Acute (3) Hypotension Status: Acute (4) Tachycardia Code(s): R00.0 - TACHYCARDIA, UNSPECIFIED Status: Acute (5) HLD (hyperlipidemia) Code(s): E78.5 - HYPERLIPIDEMIA, UNSPECIFIED Status: Acute (6) Chronic stage c diastolic heart failure Code(s): I50.32 - CHRONIC DIASTOLIC (CONGESTIVE) HEART FAILURE Status: Acute (7) Coronary artery disease Code(s): I25.10 - ATHSCL HEART DISEASE OF [place] CORONARY ARTERY W/O ANG PCTRS Status: Acute (8) Osteoarthritis of hip Code(s): M16.9 - OSTEOARTHRITIS OF HIP, UNSPECIFIED Status: Acute (9) S/P CABG x 3 Code(s): Z95.1 - PRESENCE OF AORTOCORONARY BYPASS GRAFT Status: Acute (10) SLE (systemic lupus erythematosus) Code(s): M32.9 - SYSTEMIC LUPUS ERYTHEMATOSUS, UNSPECIFIED Status: Chronic - Plan PT/OT, DVT proph w/SCDs sodium better.cont free water restriction -: low BP.discussed w nephro-start gentle IVF -: start florinef given h/o adrenal insufficiency.on sloumedrol -: encouraged to establish care w Rheumatology for h/o SLE -: cont ABx.adjust dose for renal failure. await final Cx.suspect Sinusitis * .renal Fx stable. monitor. * supportive care * am labs Review of Systems - Review of Systems Constitutional: weakness, malaise. negative: fever, chills, sweats, other ENT: Nose Discharge. negative: Ear Pain, Ear Discharge, Nose Pain, Nose Congestion, Mouth Pain, Mouth Swelling, Throat Pain, Throat Swelling, Other Respiratory: SOB with Excertion, Sputum. negative: Cough, Dry, Shortness of Breath, Hemoptysis, Pleuritic Pain, Wheezing Cardiovascular: negative: chest pain, palpitations, orthopnea, paroxysmal nocturnal dyspnea, edema, light headedness, other Gastrointestinal: negative: Nausea, Vomiting, Abdominal Pain, Diarrhea, Constipation, Melena, Hematochezia, Other Genitourinary: negative: Dysuria, Frequency, Incontinence, Hematuria, Retention , Other Musculoskeletal: negative: Neck Pain, Shoulder Pain, Arm Pain, Back Pain, Hand Pain, Leg Pain, Foot Pain, Other Neurological: negative: Weakness, Numbness, Incoordination, Change in Speech, Confusion, Seizures, Other - Medications/Allergies Allergies/Adverse Reactions: Allergies Allergy/AdvReac Type Severity Reaction Status Date / Time moxifloxacin [From Avelox] Allergy Rash Verified 11/24/18 17:33 Medications: Current Medications Acetaminophen (Tylenol) 650 mg PO Q4H PRN PRN Reason: Headache/Fever/Mild Pain (1-3) Last Admin: 12/19/18 04:28 Dose: 650 mg Albuterol/Ipratropium (Duoneb) 3 ml NEB [id number] PRN PRN Reason: SOB &/or Wheezing Last Admin: 12/19/18 12:03 Dose: 3 ml Alprazolam (Xanax) 0.5 mg PO TID PRN PRN Reason: Anxiety Last Admin: 12/19/18 04:28 Dose: 0.5 mg Aspirin (Ecotrin) 81 mg PO DAILY [facility] Last Admin: 12/19/18 08:53 Dose: 81 mg Atorvastatin Calcium (Lipitor) 20 mg PO DAILY [facility] Last Admin: 12/19/18 08:54 Dose: 20 mg Benzonatate (Tessalon) 100 mg PO Q6H PRN PRN Reason: Cough Bisacodyl (Dulcolax) 10 mg PO DAILYPRN PRN PRN Reason: Constipation Calcium Carbonate (Tums) 1,000 mg PO Q4H PRN PRN Reason: Heartburn or Indigestion Last Admin: 12/18/18 05:55 Dose: 1,000 mg Clonidine (Catapres) 0.1 mg PO Q4H PRN PRN Reason: SBP > _160___ Clopidogrel Bisulfate (Plavix) 75 mg PO DAILY [facility] Last Admin: 12/19/18 08:54 Dose: 75 mg Enoxaparin Sodium (Lovenox) 40 mg SC 2100 [facility] Last Admin: 12/18/18 20:49 Dose: 40 mg Famotidine (Pepcid) 20 mg PO BID [facility] Last Admin: 12/19/18 08:53 Dose: 20 mg Fludrocortisone Acetate (Florinef) 0.1 mg PO BID [facility] Last Admin: 12/19/18 12:20 Dose: 0.1 mg Fluticasone Propionate (Flonase Nasal [place]) 0 gm NASAL DAILY [facility] Last Admin: 12/19/18 14:07 Dose: Not Given Guaifenesin (Robitussin Sf) 200 mg PO Q4H PRN PRN Reason: Cough Last Admin: 12/17/18 23:19 Dose: 200 mg Guaifenesin (Mucinex) 1,200 mg PO Q12HR [facility] Last Admin: 12/19/18 08:53 Dose: 1,200 mg Hydralazine HCl (Apresoline) 10 mg SLOW IVP Q4H PRN PRN Reason: SBP > 180 and HR < 70 Piperacillin Sod/Tazobactam (Sod 3.375 gm/ Sodium Chloride) 100 mls @ 200 mls/ hr IVPB Q6HR [facility] Last Admin: 12/19/18 12:20 Dose: 100 mls Vancomycin HCl 2 gm/ Sodium (Chloride) 500 mls @ 250 mls/hr IVPB 1400 [facility] Last Admin: 12/19/18 13:31 Dose: 500 mls Ipratropium [place] (Atrovent 0.03%) 1 ml EA NARE BID [facility] Last Admin: 12/19/18 14:07 Dose: Not Given Methylprednisolone Sodium Succinate (Solu-Medrol) 40 mg IVP DAILY [facility] Last Admin: 12/19/18 08:53 Dose: 40 mg Miscellaneous Medication (Pharmacy To Dose) 0 each IVPB ASDIR [facility] Ondansetron HCl (Zofran) 4 mg IVP Q6H PRN PRN Reason: Nausea/Vomiting Last Admin: 12/18/18 13:41 Dose: 4 mg Pantoprazole Sodium (Protonix) 40 mg PO DAILY [facility] Last Admin: 12/19/18 08:54 Dose: 40 mg Pseudoephedrine HCl (Sudafed) 30 mg PO Q6H PRN PRN Reason: Nasal Congestion Senna/Docusate Sodium (Senokot S) 2 tab PO BID PRN PRN Reason: Constipation Last Admin: 12/19/18 13:42 Dose: 2 tab Sodium Chloride (Flush - Normal Saline) 10 ml IVF Q12HR [facility] Last Admin: 12/19/18 08:55 Dose: 10 ml Sodium Chloride (Flush - Normal Saline) 10 ml IVF PRN PRN PRN Reason: Saline Flush Tamsulosin HCl (Flomax) 0.4 mg PO DAILY [facility] Last Admin: 12/19/18 08:54 Dose: 0.4 mg
--- NOTE | 2018-12-19 16:50 | CON ---
DATE OF CONSULTATION: 12/19/2018 REASON FOR CONSULTATION: Possible chronic sinusitis in the setting of SLE, on chronic corticosteroids. HISTORY OF PRESENT ILLNESS: A 58-year-old patient, who has history of initially discoid lupus and then subsequently diagnosed as having systemic lupus, although the basis of this diagnosis is not clear. The patient went to the [facility] in the past 3 years, but has not been there again. He has been treated with chronic corticosteroids anywhere from 10 to 20, 30, and sometimes 40 mg prescribed by his primary physician intermittently. There has been a question of chronic adrenal insufficiency. He has coronary artery disease with prior bypass graft surgery. He also had a AAA repair done in [place], had to have reintervention and end up losing his left kidney and has had chronic sinusitis treated with recurring courses of antimicrobial therapy of various nature. At this time, he has had recrudescence of cough, congestion, dizziness, purulent and bloody secretions from the nasal area. Apparently, he was going to be referred to me, but we have not yet scheduled a visit with me. At this time, he is admitted with his upper airway symptoms, popping of the ears, decreased oral intake and appetite. He had a CT of chest, which showed infiltrate versus edema. He had marked hyponatremia, which was probably what precipitated the current admission. He also had low serum osmolality at 246. The initial evaluation showed a blood pressure 113/70, pulse 77, respirations 26, and temperature 98.2 with O2 saturation 100%. He was oriented and alert. He did not appear in acute respiratory distress. Pertinent findings on the exam, he had inspiratory crackles at the bases. No wheezing. Heart exam was normal. Abdomen, soft and nontender. CT scan of the chest showed [id number] congestion bilaterally in lungs, but no infiltrates. Currently, he is in the ICU. He is quite anxious and he has intermittent headaches, nasal obstipation, some ear popping symptoms, some sore throat. No toothache. No significant back pain. Mild dyspnea. No chest pain. No abdominal pain or diarrhea. No genitourinary symptoms. He has some joint symptoms, which are chronic, mostly in hands and knees. 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 PAST SURGICAL HISTORY: He also has had appendectomy, left hip replacement, and heart cath. SOCIAL HISTORY: Chronic smoker. Has smoked until a few days ago. 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 Lives I believe in [place] with . No drug use. No alcoholic beverage use. ALLERGIES: AVELOX WITH RASH. CURRENT MEDICATIONS: 1. P.r.n. medications. 2. Ecotrin. 3. Lipitor. 4. Tessalon. 5. Dulcolax. 6. Catapres. 7. Plavix. 8. Lovenox. 9. Pepcid. 10. Florinef. 11. Flonase. 12. Robitussin. 13. Mucinex. 14. Apresoline. 15. Atrovent. 16. Solu-Medrol. 17. Zosyn. 18. Vancomycin. PHYSICAL EXAMINATION: VITAL SIGNS: T-max 98.5, blood pressure 106/75, pulse 100, respirations 20, O2 saturation 95% on room air. SKIN: Not remarkable. The patient has a peripheral IV access and is voiding in the urinal. HEENT: No lymphadenopathy. Ocular movements conjugate. He has cushingoid features. Oral cavity moist. The patient has oral thrush noted. Numerous teeth in place with some decay and gum disease. NECK: Supple. No jugular vein distention. LUNGS: Fairly clear to auscultation and percussion. HEART: S1 and S2. Regular rate. No S3 or S4. ABDOMEN: Soft, not distended or tender. No ascites. No bladder distention. MUSCULOSKELETAL: No joint inflammatory activity noted. No edema. Pulses 1+ in dorsalis pedis. Plantar responses are flexor. Moves extremities equally. NEUROLOGIC: He is awake and oriented, follows commands. LABORATORY DATA: White cell count 16.5, hemoglobin 12, platelets 337, 87% neutrophils. INR was not done. Sodium 114 and now is 119, potassium 3.2, BUN 32, creatinine 1.7, calcium 10.1. The last serum osmolality was 259 yesterday, on arrival it was 251. Troponin was 0.031. Liver profile has been normal recently. CRP 2.88, albumin 3.6, globulin 3.1. PSA was 0.43. TSH 2.34, T4 was normal. Urinalysis was fairly normal. Urine osmolality was 2.79. PETER was positive, but all the specificities have been negative, this is from 2011. Microbiology with 2 sets of blood cultures thus far negative. IMAGING STUDIES: Include chest x-ray with no acute cardiopulmonary process. Pulmonary perfusion imaging, which was low probability venogram with no evidence of deep vein thrombosis. He had a CT of chest angiogram with no PE. There is a CT dissection from December 05, 2017, when there was a diagnosis of acute appendicitis made. ASSESSMENT: 1. Coronary artery disease, abdominal aortic aneurysm with complications refer to above and unilateral nephrectomy or loss of left kidney function. 2. Recurring chronic rhinosinusitis. 3. Diagnosis of discoid lupus and then a diagnosis of systemic lupus erythematosus, which in my opinion is not well documented. The patient has been on chronic corticosteroids for very long time and now seems to have become dependent on chronic corticosteroids, recurrent episodes of general malaise from those are tapered. 4. Chronic hyponatremia, which appears more consistent with syndrome of inappropriate antidiuretic hormone secretion then with true adrenal insufficiency and chronic rhinosinusitis. DISCUSSION: The patient has variety of different problems, which might not be interconnected. There are some issues with previous diagnosis, which create problem of interpretation for example the issue of systemic lupus erythematosus I believe is not well documented, the only autoimmune panel that was submitted actually was not confirmatory of that diagnosis. We will repeat. We will submit complement levels C3 and C4 to complete the workup in that regard. In relationship to his current symptoms, it seems like the hyponatremia seems to be the dominant reason that led to the sensation of weakness, which led to admission and if the blood cultures remain negative, I would go ahead and transition antimicrobial therapy to a more limited spectrum of coverage for chronic rhinosinusitis in view of the purulence in his nasal secretions. I think he needs imaging of the sinuses including his sphenoid, maxillary, and ethmoid sinuses. We need to quantitate his immunoglobulin fractions to make sure he does not have CVID. We will check an HIV serology for completeness sake. He needs treatment for his oral candidiasis. Job ID: [id number]
--- NOTE | 2018-12-19 18:28 | CT ---
CT PARANASAL SINUSES NONCONTRAST: 12/19/2018 HISTORY: Purulent rhinosinusitis without improvement. FINDINGS: There is opacification of the posterior left ethmoidal air cells. There is mucosal thickening. with suggestion of minimal air-fluid levels in the right sphenoid sinus, as well as an air-fluid level and mucosal thickening seen in the right maxillary antrum. Trace mucosal thickening is seen in the left maxillary antrum. The frontal sinuses and bilateral mastoid air cells are clear. Each ethmoid infundibulum appears patent. The osseous structures have a normal appearance. The orbits are normal and symmetric in appearance b ilaterally. [place] lenses are not visualized. IMPRESSION: Scattered mucosal thickening in the paranasal sinuses with an air-fluid level seen in the right maxil anuj antrum and, to a lesser extent, involving the right sphenoid sinus which can be seen with acute sinusitis. POS: [facility]
[2018-12-19 19:08] LABS: Anion Gap 18 mmol/L (10-20); BUN (Urea Nitrogen) 28 mg/dL (8.4-25.7); Calc. Creatinine Clearance 63 mL/min (70-130); Carbon Dioxide 17 mmol/L (22-29); Chloride 90 mmol/L (98-107); Estimated GFR-MDRD 37; Glucose 160 mg/dL (70-105); Potassium 4.2 mmol/L (3.5-5.1); Sodium 121 mmol/L (136-145)
[2018-12-19 19:27] LABS: HIV (1/2) Antibody/Antigen Non-Reactive (NonReactive); HIV 1/2 INDEX 0.16 S/CO (<1.00)
[2018-12-19] MEDS: Enoxaparin Sodium 40 MG/0.4 ML SYRINGE SC SCH (21:45)
[2018-12-20 04:57] LABS: #Eosinphils 0.1 thou/uL (0.0-0.7); #Lymphocytes 1.2 thou/uL (1.20-3.40); #Monocytes 1.3 thou/uL (0.11-0.59); #Neutrophils 10.7 thou/uL (1.40-6.50); %Basophils 0.1 % (0.0-1.0); %Eosinophils 0.6 % (0.0-10.0); %Lymphocytes 9.1 % (21.0-51.0); %Monocytes 9.8 % (0.0-10.0); %Neutrophils 80.4 % (42.0-75.0); Hemoglobin 11.2 g/dL (14.0-18.0); Mean Corpuscular HGB CONC 33.4 g/dL (32.0-36.0); Mean Corpuscular Hemoglobin 28.1 pg (27.0-31.0); Mean Corpuscular Volume 84.3 fL (78.0-98.0); Mean Platelet Volume 6.4 fL (7.4-10.4); Platelet Count 232 thou/uL (130-400); RBC Distribution Width 14.7 % (11.5-14.5); Red Blood Cell (RBC) Count 3.99 mill/uL (4.70-6.10); White Blood Cell (WBC) Count 13.4 thou/uL (4.8-10.8)
[2018-12-20 05:20] LABS: ALT (SGPT) 14 U/L (8-55); AST (SGOT) 16 U/L (5-34); Albumin 3.2 g/dL (3.5-5.0); Alkaline Phosphatase 57 U/L (40-150); Anion Gap 15 mmol/L (10-20); BUN (Urea Nitrogen) 26 mg/dL (8.4-25.7); Bilirubin, Total 0.7 mg/dL (0.2-1.2); Calc. Creatinine Clearance 75 mL/min (70-130); Carbon Dioxide 23 mmol/L (22-29); Chloride 92 mmol/L (98-107); Estimated GFR-MDRD 45; Globulin 2.7 g/dL (2.4-3.5); Glucose 84 mg/dL (70-105); Potassium 4.4 mmol/L (3.5-5.1); Protein, Total 5.9 g/dL (6.0-8.3); Sodium 126 mmol/L (136-145)
[2018-12-20] MEDS: Piperacillin/Tazobactam 3.375 GM in Sodium Chloride 0.9% 100 ML IVPB SCH ×4 (05:58→23:55)
[2018-12-20 06:05] VITALS: BMI 29.0
[2018-12-20] MEDS ORDERED: Vancomycin HCl 750 GM in Premix Bag 1 BAG IVPB SCH (09:00)
[2018-12-20] MEDS: Atorvastatin Calcium 20 MG TAB PO SCH (09:44)
[2018-12-20] MEDS: guaiFENesin ER 600 MG TAB PO SCH ×2 (09:44→21:11)
[2018-12-20] MEDS: Clopidogrel Bisulfate 75 MG TAB PO SCH (09:44)
[2018-12-20] MEDS: Fluconazole 100 MG TAB PO SCH (09:45)
[2018-12-20] MEDS: Fludrocortisone Acetate 0.1 MG TAB PO SCH ×2 (09:45→21:12)
[2018-12-20] MEDS: Tamsulosin HCl 0.4 MG CAP PO SCH (09:45)
[2018-12-20] MEDS: Famotidine 20 MG TAB PO SCH ×2 (09:45→21:12)
[2018-12-20] MEDS: Aspirin 81 mg Enteric Coated Tablet PO SCH (09:45)
[2018-12-20] MEDS: Fluticasone Propionate Nasal Spray 16 gm Bottle NASAL SCH (09:46)
[2018-12-20] MEDS: Ipratropium Bromide 0.03% Nasal Inhaler 30 ml Bottle EA NARE SCH ×2 (09:46→21:13)
--- NOTE | 2018-12-20 12:34 | PDOC.PN ---
- Subjective Encounter Start Date: 12/20/18 Encounter Start Time: 12:32 Subjective: pt feels better but still very weak. -: congestion is better - Objective MAR Reviewed: Yes Vital Signs & Weight: Vital Signs (12 hours) Temp Pulse Resp BP Pulse Ox 12/20/18 11:49 98.4 F 121 H 18 106/75 96 12/20/18 07:54 97 12/20/18 07:49 97.6 F 94 22 H 103/62 97 12/20/18 04:58 97.4 F L 96 18 87/55 L 99 Weight Admit Weight 233 lb 1.6 oz Weight 232 lb I&O: 12/19/18 12/20/18 12/21/18 06:59 06:59 06:59 Intake Total 440 410 Output Total 1170 425 Balance -730 -15 Result Diagrams: 12/20/18 04:48 12/20/18 04:48 Additional Labs: Microbiology 12/17/18 19:51 Venous blood - Right Arm Blood Culture - Preliminary NO GROWTH AT 48 HOURS 12/17/18 19:51 Venous blood - Left Arm Blood Culture - Preliminary NO GROWTH AT 48 HOURS Laboratory Tests 12/17/18 12/17/18 12/18/18 17:44 19:05 06:35 Sodium 114 L* 116 L* 114 L* IgG Total IgA Total IgM Total HIV 1&2 Antigen & Ab 12/18/18 12/19/18 12/19/18 11:37 06:11 18:39 Sodium 117 L* 119 L* IgG Total 544.00 IgA Total 177.00 IgM Total 52.00 HIV 1&2 Antigen & Ab 12/19/18 12/19/18 12/20/18 18:39 18:39 04:48 Sodium 121 L 126 L IgG Total IgA Total IgM Total HIV 1&2 Antigen & Ab Non-Reactive Radiology Reviewed by me: Yes (CT sinus-sinusitis) Phys Exam - Physical Examination Constitutional: NAD HEENT: PERRLA, moist MMs, sclera anicteric, oral pharynx no lesions Neck: no nodes, no JVD, supple, full ROM Respiratory: no wheezing, no rales, no rhonchi, clear to auscultation bilateral Cardiovascular: RRR, no significant murmur Gastrointestinal: soft, non-tender, no distention, positive bowel sounds Musculoskeletal: no edema, pulses present Neurological: non-focal, normal sensation, moves all 4 limbs Psychiatric: normal affect, A&O x 3 Dx/Plan (1) Hyponatremia Code(s): E87.1 - HYPO-OSMOLALITY AND HYPONATREMIA Status: Acute Comment: improving (2) TAJ (acute kidney injury) Code(s): N17.9 - ACUTE KIDNEY FAILURE, UNSPECIFIED Status: Acute Comment: improving (3) Hypotension Status: Acute Comment: suspect relative adrenal insufficiency (4) Tachycardia Code(s): R00.0 - TACHYCARDIA, UNSPECIFIED Status: Acute (5) HLD (hyperlipidemia) Code(s): E78.5 - HYPERLIPIDEMIA, UNSPECIFIED Status: Acute (6) Chronic stage c diastolic heart failure Code(s): I50.32 - CHRONIC DIASTOLIC (CONGESTIVE) HEART FAILURE Status: Acute (7) Coronary artery disease Code(s): I25.10 - ATHSCL HEART DISEASE OF [place] CORONARY ARTERY W/O ANG PCTRS Status: Acute (8) Osteoarthritis of hip Code(s): M16.9 - OSTEOARTHRITIS OF HIP, UNSPECIFIED Status: Acute (9) S/P CABG x 3 Code(s): Z95.1 - PRESENCE OF AORTOCORONARY BYPASS GRAFT Status: Acute (10) SLE (systemic lupus erythematosus) Code(s): M32.9 - SYSTEMIC LUPUS ERYTHEMATOSUS, UNSPECIFIED Status: Chronic - Plan continue antibiotics, PT/OT, respiratory therapy, incentive spirometry, out of bed/ambulate, DVT proph w/SCDs sodium much better. relax water restriction.cont to monitor -: renal Fx better as well.monitor.avoid nephrotoxins -: cont empiric ABx given significant clinical improvement & immunocompromised -: cont solumedrol & florinef given chr adrenal insufficiency.supportive care -: cont gentle IVF as BP still hold. BB,Lasix/Lisinopril on hold.HCTZ stopped * .encourage ambulation Review of Systems - Review of Systems Constitutional: weakness, malaise. negative: fever, chills, sweats, other ENT: Nose Discharge, Nose Congestion. negative: Ear Pain, Ear Discharge, Nose Pain, Mouth Pain, Mouth Swelling, Throat Pain, Throat Swelling, Other Respiratory: Cough, SOB with Excertion, Sputum Cardiovascular: negative: chest pain, palpitations, orthopnea, paroxysmal nocturnal dyspnea, edema, light headedness, other Gastrointestinal: negative: Nausea, Vomiting, Abdominal Pain, Diarrhea, Constipation, Melena, Hematochezia, Other Genitourinary: negative: Dysuria, Frequency, Incontinence, Hematuria, Retention , Other Musculoskeletal: negative: Neck Pain, Shoulder Pain, Arm Pain, Back Pain, Hand Pain, Leg Pain, Foot Pain, Other Neurological: negative: Weakness, Numbness, Incoordination, Change in Speech, Confusion, Seizures, Other - Medications/Allergies Allergies/Adverse Reactions: Allergies Allergy/AdvReac Type Severity Reaction Status Date / Time moxifloxacin [From Avelox] Allergy Rash Verified 11/24/18 17:33 Medications: Current Medications Acetaminophen (Tylenol) 650 mg PO Q4H PRN PRN Reason: Headache/Fever/Mild Pain (1-3) Last Admin: 12/19/18 21:48 Dose: 650 mg Albuterol/Ipratropium (Duoneb) 3 ml NEB [id number] PRN PRN Reason: SOB &/or Wheezing Last Admin: 12/19/18 12:03 Dose: 3 ml Alprazolam (Xanax) 0.5 mg PO TID PRN PRN Reason: Anxiety Last Admin: 12/19/18 21:48 Dose: 0.5 mg Aspirin (Ecotrin) 81 mg PO DAILY [facility] Last Admin: 12/20/18 09:45 Dose: 81 mg Atorvastatin Calcium (Lipitor) 20 mg PO DAILY [facility] Last Admin: 12/20/18 09:44 Dose: 20 mg Benzonatate (Tessalon) 100 mg PO Q6H PRN PRN Reason: Cough Bisacodyl (Dulcolax) 10 mg PO DAILYPRN PRN PRN Reason: Constipation Calcium Carbonate (Tums) 1,000 mg PO Q4H PRN PRN Reason: Heartburn or Indigestion Last Admin: 12/18/18 05:55 Dose: 1,000 mg Clonidine (Catapres) 0.1 mg PO Q4H PRN PRN Reason: SBP > _160___ Clopidogrel Bisulfate (Plavix) 75 mg PO DAILY [facility] Last Admin: 12/20/18 09:44 Dose: 75 mg Enoxaparin Sodium (Lovenox) 40 mg SC 2100 [facility] Last Admin: 12/19/18 21:45 Dose: 40 mg Famotidine (Pepcid) 20 mg PO BID [facility] Last Admin: 12/20/18 09:45 Dose: 20 mg Fluconazole (Diflucan) 100 mg PO DAILY [facility] Last Admin: 12/20/18 09:45 Dose: 100 mg Fludrocortisone Acetate (Florinef) 0.1 mg PO BID [facility] Last Admin: 12/20/18 09:45 Dose: 0.1 mg Fluticasone Propionate (Flonase Nasal [place]) 0 gm NASAL DAILY [facility] Last Admin: 12/20/18 09:46 Dose: 1 spr Guaifenesin (Robitussin Sf) 200 mg PO Q4H PRN PRN Reason: Cough Last Admin: 12/17/18 23:19 Dose: 200 mg Guaifenesin (Mucinex) 1,200 mg PO Q12HR [facility] Last Admin: 12/20/18 09:44 Dose: 1,200 mg Hydralazine HCl (Apresoline) 10 mg SLOW IVP Q4H PRN PRN Reason: SBP > 180 and HR < 70 Piperacillin Sod/Tazobactam (Sod 3.375 gm/ Sodium Chloride) 100 mls @ 200 mls/ hr IVPB Q6HR [facility] Last Admin: 12/20/18 05:58 Dose: 100 mls Vancomycin HCl 2 gm/ Sodium (Chloride) 500 mls @ 250 mls/hr IVPB 1400 [facility] Last Admin: 12/19/18 13:31 Dose: 500 mls Ipratropium [place] (Atrovent 0.03%) 1 ml EA NARE BID [facility] Last Admin: 12/20/18 09:46 Dose: 1 ml Methylprednisolone Sodium Succinate (Solu-Medrol) 40 mg IVP DAILY [facility] Last Admin: 12/20/18 09:44 Dose: 40 mg Miscellaneous Medication (Pharmacy To Dose) 0 each IVPB ASDIR [facility] Ondansetron HCl (Zofran) 4 mg IVP Q6H PRN PRN Reason: Nausea/Vomiting Last Admin: 12/18/18 13:41 Dose: 4 mg Pantoprazole Sodium (Protonix) 40 mg PO DAILY [facility] Last Admin: 12/20/18 09:44 Dose: 40 mg Pseudoephedrine HCl (Sudafed) 30 mg PO Q6H PRN PRN Reason: Nasal Congestion Senna/Docusate Sodium (Senokot S) 2 tab PO BID PRN PRN Reason: Constipation Last Admin: 12/19/18 13:42 Dose: 2 tab Sodium Chloride (Flush - Normal Saline) 10 ml IVF Q12HR [facility] Last Admin: 12/20/18 09:47 Dose: 10 ml Sodium Chloride (Flush - Normal Saline) 10 ml IVF PRN PRN PRN Reason: Saline Flush Tamsulosin HCl (Flomax) 0.4 mg PO DAILY [facility] Last Admin: 12/20/18 09:45 Dose: 0.4 mg
[2018-12-20 14:22] LABS: Vancomycin, Trough 18.3 ug/mL
--- NOTE | 2018-12-20 14:36 | PRG ---
DATE OF SERVICE: 12/20/2018 SUBJECTIVE: Mr. Medina is stable overnight. He has no complaints today. OBJECTIVE: VITAL SIGNS: He is afebrile. Heart rates in the 90s, respiratory rates in the 20s, oximetry is 97 on room air, and blood pressure 106/75. LUNGS: Still remarkable for faint wheezes. HEART: Regular rhythm. ABDOMEN: Soft. LABORATORY DATA: White count 13.4, hemoglobin 11.2, and platelets 232,000. Sodium 126, potassium 4.4, chloride 92, bicarb 23, BUN 26, and creatinine 1.6. IMPRESSION AND PLAN: 1. Asthmatic bronchitis/chronic obstructive pulmonary disease exacerbation. 2. ? Lupus. He has had discoid lupus for many years, but never has had any clinical manifestation of systemic lupus. He has serologies suggestive he has lupus from what I can tell talking to him, but he gives a very disjointed history. He really just needs to start over a new workup for his lupus to see if he really truly has systemic lupus. He has not been treated for and I suspect he has some blood abnormalities suggestive of lupus, but has never met the clinical criteria for the diagnosis of systemic lupus. 1. Hypertension. 2. History of steroid dependence. 3. History of coronary artery bypass grafting. 4. In spite of multiple vascular disasters, he continues to smoke. 5. Coronary artery bypass grafting. 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 He has had coronary stenting. He can transfer to a medical bed by opinion. Job ID: [id number]
--- NOTE | 2018-12-20 17:27 | PRG ---
DATE OF SERVICE: 12/20/2018 SUBJECTIVE: Patient was seen and examined at bedside and overnight events noted. Patient denies any shortness of breath or chest pain or palpitation. No history of nausea or vomiting or diarrhea or fever or chills or cramps. OBJECTIVE: GENERAL: This is a well-built male, in no apparent distress. VITAL SIGNS: Temperature 97.5, heart rate 98, respiratory rate 16, and blood pressure 107/54. HEENT: Atraumatic, normocephalic. Oral mucosa is moist NECK: Supple. CARDIOVASCULAR: S1, S2 heard. Rate and rhythm regular. RESPIRATORY: Clear to auscultation. GASTROINTESTINAL: Abdomen is soft. MUSCULOSKELETAL: No tenderness. No edema. DERMATOLOGIC: No skin rash. NEUROLOGIC: Alert and awake and oriented X3. No focal neurologic deficits. Moving all the extremities. PSYCHIATRIC: Mood and affect normal. LABORATORY DATA: Sodium is 126, potassium 4.4, BUN 26, and creatinine 1.6. ASSESSMENT: 1. Hyponatremia, improved and stable. Continue on fluid restriction. 2. Acute kidney injury on chronic kidney disease, stable. 3. Hypochloremia. 4. Hypoalbuminemia. 5. Edema. . PLAN: Sodium level is stable, limit fluid intake. The patient was counseled. Job ID: [id number]
[2018-12-20] MEDS: Senokot S 8.6-50 MG TAB PO PRN (17:45)
[2018-12-20] MEDS: Enoxaparin Sodium 40 MG/0.4 ML SYRINGE SC SCH (21:11)
[2018-12-20] MEDS: Acetaminophen 325 MG TAB PO PRN (21:12)
[2018-12-20] MEDS: ALPRAZolam 0.5 MG TAB PO PRN (21:12)
[2018-12-21] MEDS: Piperacillin/Tazobactam 3.375 GM in Sodium Chloride 0.9% 100 ML IVPB SCH ×4 (05:34→23:43)
[2018-12-21 06:43] LABS: #Eosinphils 0.1 thou/uL (0.0-0.7); #Lymphocytes 1.1 thou/uL (1.20-3.40); #Monocytes 0.9 thou/uL (0.11-0.59); #Neutrophils 9.2 thou/uL (1.40-6.50); %Basophils 0.1 % (0.0-1.0); %Eosinophils 1.2 % (0.0-10.0); %Lymphocytes 9.5 % (21.0-51.0); %Monocytes 7.8 % (0.0-10.0); %Neutrophils 81.5 % (42.0-75.0); Hemoglobin 10.6 g/dL (14.0-18.0); Mean Corpuscular HGB CONC 33.5 g/dL (32.0-36.0); Mean Corpuscular Hemoglobin 28.2 pg (27.0-31.0); Mean Corpuscular Volume 84.2 fL (78.0-98.0); Mean Platelet Volume 6.9 fL (7.4-10.4); Platelet Count 238 thou/uL (130-400); RBC Distribution Width 14.8 % (11.5-14.5); Red Blood Cell (RBC) Count 3.75 mill/uL (4.70-6.10); White Blood Cell (WBC) Count 11.2 thou/uL (4.8-10.8)
[2018-12-21 06:59] LABS: Anion Gap 13 mmol/L (10-20); BUN (Urea Nitrogen) 19 mg/dL (8.4-25.7); Calc. Creatinine Clearance 100 mL/min (70-130); Calcium 8.2 mg/dL (7.8-10.44); Carbon Dioxide 21 mmol/L (22-29); Chloride 93 mmol/L (98-107); Estimated GFR-MDRD 66; Glucose 89 mg/dL (70-105); Sodium 124 mmol/L (136-145)
[2018-12-21] MEDS: Famotidine 20 MG TAB PO SCH ×2 (08:45→21:55)
[2018-12-21] MEDS: guaiFENesin ER 600 MG TAB PO SCH ×2 (08:45→21:55)
[2018-12-21] MEDS: Clopidogrel Bisulfate 75 MG TAB PO SCH (08:45)
[2018-12-21] MEDS: Aspirin 81 mg Enteric Coated Tablet PO SCH (08:45)
[2018-12-21] MEDS: Fluconazole 100 MG TAB PO SCH (08:45)
[2018-12-21] MEDS: Fludrocortisone Acetate 0.1 MG TAB PO SCH ×2 (08:45→22:01)
[2018-12-21] MEDS: Tamsulosin HCl 0.4 MG CAP PO SCH (08:45)
[2018-12-21] MEDS: Atorvastatin Calcium 20 MG TAB PO SCH (08:45)
[2018-12-21] MEDS: Senokot S 8.6-50 MG TAB PO PRN (08:46)
[2018-12-21] MEDS: Ipratropium Bromide 0.03% Nasal Inhaler 30 ml Bottle EA NARE SCH ×2 (08:55→21:57)
[2018-12-21] MEDS: Fluticasone Propionate Nasal Spray 16 gm Bottle NASAL SCH (08:55)
[2018-12-21] MEDS: Potassium Chloride 40 MEQ in Sodium Chloride 0.9% 250 ML 250 ML IVPB SCH ×2 (11:21→16:20)
[2018-12-21 13:49] LABS: Anion Gap 15 mmol/L (10-20); BUN (Urea Nitrogen) 19 mg/dL (8.4-25.7); Calc. Creatinine Clearance 90 mL/min (70-130); Calcium 8.7 mg/dL (7.8-10.44); Carbon Dioxide 18 mmol/L (22-29); Chloride 92 mmol/L (98-107); Estimated GFR-MDRD 59; Glucose 130 mg/dL (70-105); Potassium 3.4 mmol/L (3.5-5.1); Sodium 122 mmol/L (136-145)
--- NOTE | 2018-12-21 14:57 | PRG ---
DATE OF SERVICE: 12/21/2018 OBJECTIVE: VITAL SIGNS: Mr. Medina is afebrile, heart rate 97, respiratory rate 18, oximetry is 96, blood pressure 128/82. LUNGS: He has diffuse wheezes on exam. HEART: Regular rhythm. ABDOMEN: Soft. LABORATORY DATA: White count is 11.2, hemoglobin 10.6, platelets 338. Sodium 122, potassium 3.4, chloride 93, bicarb 18, BUN 19, and creatinine 1.26. Intake and output, negative 1560. He had 2800 mL of urine out yesterday. When I tried to talk to him about his smoking and the severity of his problems with his vascular system and his lungs, he became angry and verbally abusive. He is stable at this point in time. The only issue at hand is his hyponatremia. His blood cultures remain negative. He is on IV steroid and Florinef now. The mineralocorticoid activity of Solu-Medrol should obviate the need for Florinef. He is not on any medicines that I am aware might cause hyponatremia. Always in the setting, I worry about an occult malignancy i.e. small cell lung cancer. He had a CT of his chest on December 17, that did not show any evidence of mediastinal mass or malignancy. Because of his behavior today and his pulmonary stability, I will not round on him in the future. He can follow up with his primary care physician. If he desires Pulmonary followup after discharge, he can follow up with one of the other groups in town. Job ID: [id number]
--- NOTE | 2018-12-21 15:16 | PDOC.PN ---
- Subjective Encounter Start Date: 12/21/18 Encounter Start Time: 15:14 Subjective: feels much better -: still weak and worried about HR being high - Objective MAR Reviewed: Yes Vital Signs & Weight: Vital Signs (12 hours) Temp Pulse Resp BP BP Pulse Ox 12/21/18 11:21 98 F 97 18 128/82 96 12/21/18 07:51 97.6 F 116 H 20 115/72 99 12/21/18 04:00 97.7 F 88 20 108/70 97 Weight Admit Weight 233 lb 1.6 oz Weight 220 lb I&O: 12/20/18 12/21/18 12/22/18 06:59 06:59 06:59 Intake Total 410 1240 Output Total 425 2800 Balance -15 Result Diagrams: 12/21/18 06:14 12/21/18 13:04 Additional Labs: Laboratory Tests 12/17/18 12/17/18 12/18/18 17:44 19:05 01:13 Sodium 114 L* 116 L* 114 L* Creatinine 12/18/18 12/18/18 12/18/18 06:35 11:37 18:49 Sodium 117 L* 118 L* Creatinine 1.71 H 1.79 H 1.68 H 12/19/18 12/19/18 12/20/18 06:11 18:39 04:48 Sodium 119 L* 121 L 126 L Creatinine 1.68 H 1.88 H 1.60 H 12/21/18 06:14 Sodium 124 L Creatinine 1.14 Phys Exam - Physical Examination Constitutional: NAD HEENT: PERRLA, moist MMs, sclera anicteric, oral pharynx no lesions Neck: no nodes, no JVD, supple, full ROM Respiratory: no wheezing, no rales, no rhonchi, clear to auscultation bilateral Cardiovascular: RRR, no significant murmur Gastrointestinal: soft, non-tender, no distention, positive bowel sounds Musculoskeletal: no edema, pulses present Neurological: non-focal, normal sensation, moves all 4 limbs Psychiatric: normal affect, A&O x 3 Skin: no rash Dx/Plan (1) Hyponatremia Code(s): E87.1 - HYPO-OSMOLALITY AND HYPONATREMIA Status: Acute Comment: improved then worsened when fluid restriction relaxed. will institute strict fluid restriction again (2) TAJ (acute kidney injury) Code(s): N17.9 - ACUTE KIDNEY FAILURE, UNSPECIFIED Status: Acute Comment: improving (3) Hypotension Status: Acute Comment: suspect relative adrenal insufficiency.improved . on Florinef (4) Tachycardia Code(s): R00.0 - TACHYCARDIA, UNSPECIFIED Status: Acute Comment: restart BB. ? Withdrawl from muscle relaxants (5) HLD (hyperlipidemia) Code(s): E78.5 - HYPERLIPIDEMIA, UNSPECIFIED Status: Acute (6) Chronic stage c diastolic heart failure Code(s): I50.32 - CHRONIC DIASTOLIC (CONGESTIVE) HEART FAILURE Status: Acute (7) Coronary artery disease Code(s): I25.10 - ATHSCL HEART DISEASE OF [place] CORONARY ARTERY W/O ANG PCTRS Status: Acute (8) Osteoarthritis of hip Code(s): M16.9 - OSTEOARTHRITIS OF HIP, UNSPECIFIED Status: Acute (9) S/P CABG x 3 Code(s): Z95.1 - PRESENCE OF AORTOCORONARY BYPASS GRAFT Status: Acute (10) SLE (systemic lupus erythematosus) Code(s): M32.9 - SYSTEMIC LUPUS ERYTHEMATOSUS, UNSPECIFIED Status: Chronic Comment: no clear diagnosis - Plan continue antibiotics, PT/OT, respiratory therapy, incentive spirometry, out of bed/ambulate, DVT proph w/SCDs reinstitute strict free water restriction.monitor sodium closely -: CT scan of chest done in 11/16 did not show any suspicious nodules in lung -: empiric ABx. Change to Po when Ok w ID.clinically better -: renal Fx improved -: restart BB at lower dose and titrate up if BP stable * .Pt need strict f/u w Endocrinology & Rheumatology as an OP to settle issues w ? adrenal Insufficiency and SLE * reduce solumedrol. * am labs Review of Systems - Review of Systems Constitutional: weakness, malaise. negative: fever, chills, sweats, other ENT: Nose Discharge, Nose Congestion. negative: Ear Pain, Ear Discharge, Nose Pain, Mouth Pain, Mouth Swelling, Throat Pain, Throat Swelling, Other Respiratory: Cough, Sputum. negative: Dry, Shortness of Breath, Hemoptysis, SOB with Excertion, Pleuritic Pain, Wheezing Cardiovascular: palpitations. negative: chest pain, orthopnea, paroxysmal nocturnal dyspnea, edema, light headedness, other Gastrointestinal: negative: Nausea, Vomiting, Abdominal Pain, Diarrhea, Constipation, Melena, Hematochezia, Other Genitourinary: negative: Dysuria, Frequency, Incontinence, Hematuria, Retention , Other Musculoskeletal: negative: Neck Pain, Shoulder Pain, Arm Pain, Back Pain, Hand Pain, Leg Pain, Foot Pain, Other - Medications/Allergies Allergies/Adverse Reactions: Allergies Allergy/AdvReac Type Severity Reaction Status Date / Time moxifloxacin [From Avelox] Allergy Rash Verified 11/24/18 17:33 Medications: Current Medications Acetaminophen (Tylenol) 650 mg PO Q4H PRN PRN Reason: Headache/Fever/Mild Pain (1-3) Last Admin: 12/20/18 21:12 Dose: 650 mg Albuterol/Ipratropium (Duoneb) 3 ml NEB F2PV-UT PRN PRN Reason: SOB &/or Wheezing Last Admin: 12/19/18 12:03 Dose: 3 ml Alprazolam (Xanax) 0.5 mg PO TID PRN PRN Reason: Anxiety Last Admin: 12/20/18 21:12 Dose: 0.5 mg Aspirin (Ecotrin) 81 mg PO DAILY [facility] Last Admin: 12/21/18 08:45 Dose: 81 mg Atorvastatin Calcium (Lipitor) 20 mg PO DAILY [facility] Last Admin: 12/21/18 08:45 Dose: 20 mg Benzonatate (Tessalon) 100 mg PO Q6H PRN PRN Reason: Cough Last Admin: 12/21/18 00:01 Dose: 100 mg Bisacodyl (Dulcolax) 10 mg PO DAILYPRN PRN PRN Reason: Constipation Last Admin: 12/21/18 11:42 Dose: 10 mg Calcium Carbonate (Tums) 1,000 mg PO Q4H PRN PRN Reason: Heartburn or Indigestion Last Admin: 12/18/18 05:55 Dose: 1,000 mg Clonidine (Catapres) 0.1 mg PO Q4H PRN PRN Reason: SBP > _160___ Clopidogrel Bisulfate (Plavix) 75 mg PO DAILY [facility] Last Admin: 12/21/18 08:45 Dose: 75 mg Enoxaparin Sodium (Lovenox) 40 mg SC 2100 [facility] Last Admin: 12/20/18 21:11 Dose: 40 mg Famotidine (Pepcid) 20 mg PO BID [facility] Last Admin: 12/21/18 08:45 Dose: 20 mg Fluconazole (Diflucan) 100 mg PO DAILY [facility] Last Admin: 12/21/18 08:45 Dose: 100 mg Fludrocortisone Acetate (Florinef) 0.1 mg PO BID [facility] Last Admin: 12/21/18 08:45 Dose: 0.1 mg Fluticasone Propionate (Flonase Nasal [place]) 0 gm NASAL DAILY [facility] Last Admin: 12/21/18 08:55 Dose: 1 spr Guaifenesin (Robitussin Sf) 200 mg PO Q4H PRN PRN Reason: Cough Last Admin: 12/17/18 23:19 Dose: 200 mg Guaifenesin (Mucinex) 1,200 mg PO Q12HR [facility] Last Admin: 12/21/18 08:45 Dose: 1,200 mg Hydralazine HCl (Apresoline) 10 mg SLOW IVP Q4H PRN PRN Reason: SBP > 180 and HR < 70 Piperacillin Sod/Tazobactam (Sod 3.375 gm/ Sodium Chloride) 100 mls @ 200 mls/ hr IVPB Q6HR [facility] Last Admin: 12/21/18 11:21 Dose: 100 mls Vancomycin HCl 2 gm/ Sodium (Chloride) 500 mls @ 250 mls/hr IVPB 1400 [facility] Last Admin: 12/21/18 11:42 Dose: 500 mls Potassium Chloride 40 meq/ (Sodium Chloride) 270 mls @ 67.5 mls/hr IVPB 0400, 1000,1600,2200 [facility] Stop: 12/21/18 19:59 Last Admin: 12/21/18 11:21 Dose: 270 mls Ipratropium [place] (Atrovent 0.03%) 1 ml EA NARE BID [facility] Last Admin: 12/21/18 08:55 Dose: 1 ml Methylprednisolone Sodium Succinate (Solu-Medrol) 40 mg IVP DAILY [facility] Last Admin: 12/21/18 08:45 Dose: 40 mg Metoprolol Tartrate (Lopressor) 12.5 mg PO BID [facility] Miscellaneous Medication (Pharmacy To Dose) 0 each IVPB ASDIR [facility] Ondansetron HCl (Zofran) 4 mg IVP Q6H PRN PRN Reason: Nausea/Vomiting Last Admin: 12/18/18 13:41 Dose: 4 mg Pantoprazole Sodium (Protonix) 40 mg PO DAILY [facility] Last Admin: 12/21/18 08:45 Dose: 40 mg Pseudoephedrine HCl (Sudafed) 30 mg PO Q6H PRN PRN Reason: Nasal Congestion Senna/Docusate Sodium (Senokot S) 2 tab PO BID PRN PRN Reason: Constipation Last Admin: 12/21/18 08:46 Dose: 2 tab Sodium Chloride (Flush - Normal Saline) 10 ml IVF Q12HR [facility] Last Admin: 12/21/18 08:46 Dose: Not Given Sodium Chloride (Flush - Normal Saline) 10 ml IVF PRN PRN PRN Reason: Saline Flush Tamsulosin HCl (Flomax) 0.4 mg PO DAILY [facility] Last Admin: 12/21/18 08:45 Dose: 0.4 mg
[2018-12-21] MEDS ORDERED: Tolvaptan 15 MG TAB PO SCH (19:15)
--- NOTE | 2018-12-21 20:28 | PRG ---
DATE OF SERVICE: 12/21/2018 SUBJECTIVE: Patient was seen and examined at bedside and overnight events noted. Patient denies any shortness of breath or chest pain or palpitation. No history of nausea or vomiting or diarrhea or fever or chills or cramps. OBJECTIVE: GENERAL: This is a well-built male, in no apparent distress. VITAL SIGNS: Temperature 97.9, pulse [[place] HEENT: Atraumatic and normocephalic. Oral mucosa is moist NECK: Supple. CARDIOVASCULAR: S1, S2 heard. Rate and rhythm regular. RESPIRATORY: Clear to auscultation. GASTROINTESTINAL: Abdomen is soft. MUSCULOSKELETAL: No tenderness. No edema. DERMATOLOGIC: No skin rash. NEUROLOGIC: Alert and awake and oriented X3. No focal neurologic deficits. Moving all the extremities. PSYCHIATRIC: Mood and affect normal. LABORATORY DATA: Sodium is 122, potassium is 3.4, BUN is 19, and creatinine 1.2. ASSESSMENT AND PLAN: 1. Hyponatremia. Continue fluid restriction. 2. Acute kidney injury on chronic kidney disease, stable. 3. Edema, controlled. 4. Hypochloremia. 5. Hypoalbuminemia. 6. Continue on fluid restriction. Sodium level is dropping. We will continue to follow. We will consider tolvaptan as tolerated. Job ID: [id number]
[2018-12-21] MEDS ORDERED: Nitroglycerin 0.4 MG TAB (25 Tab Bottle) SL PRN (20:33)
[2018-12-21 21:27] LABS: Troponin I Less than 0.010 ng/mL (< 0.028)
[2018-12-21] MEDS: Acetaminophen 325 MG TAB PO PRN (21:55)
[2018-12-21] MEDS: ALPRAZolam 0.5 MG TAB PO PRN (21:55)
[2018-12-21] MEDS: Metoprolol Tartrate 25 MG TAB PO SCH (21:56)
[2018-12-21] MEDS: Enoxaparin Sodium 40 MG/0.4 ML SYRINGE SC SCH (21:57)
[2018-12-22 00:08] LABS: Troponin I Less than 0.010 ng/mL (< 0.028)
[2018-12-22 03:10] LABS: Troponin I 0.015 ng/mL (< 0.028)
[2018-12-22 03:32] LABS: Anion Gap 16 mmol/L (10-20); BUN (Urea Nitrogen) 15 mg/dL (8.4-25.7); Calc. Creatinine Clearance 89 mL/min (70-130); Calcium 8.6 mg/dL (7.8-10.44); Carbon Dioxide 17 mmol/L (22-29); Chloride 99 mmol/L (98-107); Estimated GFR-MDRD 58; Glucose 99 mg/dL (70-105); Potassium 3.4 mmol/L (3.5-5.1); Sodium 129 mmol/L (136-145)
[2018-12-22] MEDS: Piperacillin/Tazobactam 3.375 GM in Sodium Chloride 0.9% 100 ML IVPB SCH ×3 (05:48→17:18)
[2018-12-22] MEDS: Fluconazole 100 MG TAB PO SCH (08:46)
[2018-12-22] MEDS: guaiFENesin ER 600 MG TAB PO SCH ×2 (08:46→20:19)
[2018-12-22] MEDS: Aspirin 81 mg Enteric Coated Tablet PO SCH (08:46)
[2018-12-22] MEDS: Tamsulosin HCl 0.4 MG CAP PO SCH (08:46)
[2018-12-22] MEDS: Metoprolol Tartrate 25 MG TAB PO SCH ×2 (08:46→20:19)
[2018-12-22] MEDS: Fluticasone Propionate Nasal Spray 16 gm Bottle NASAL SCH (08:47)
[2018-12-22] MEDS: Ipratropium Bromide 0.03% Nasal Inhaler 30 ml Bottle EA NARE SCH ×2 (08:50→20:20)
[2018-12-22] MEDS: Clopidogrel Bisulfate 75 MG TAB PO SCH (08:50)
[2018-12-22] MEDS: Fludrocortisone Acetate 0.1 MG TAB PO SCH ×2 (08:50→20:27)
[2018-12-22] MEDS: Famotidine 20 MG TAB PO SCH ×2 (08:50→20:19)
[2018-12-22] MEDS ORDERED: Potassium Chloride 20 MEQ TAB PO SCH (09:00)
[2018-12-22] MEDS: Atorvastatin Calcium 20 MG TAB PO SCH (09:57)
[2018-12-22] MEDS ORDERED: Furosemide 20 MG TAB PO SCH (12:30)
--- NOTE | 2018-12-22 12:45 | PRG ---
DATE OF SERVICE: 12/22/2018 SUBJECTIVE: Patient was seen and examined at bedside and overnight events noted. Patient denies any shortness of breath or chest pain or palpitation. No history of nausea or vomiting or diarrhea or fever or chills or cramps. OBJECTIVE: GENERAL: This is a well-built male, in no acute distress. VITAL SIGNS: Temperature 98.3. Heart rate 91. Respiratory rate 18, blood pressure 112/67. HEENT: Atraumatic, normocephalic. Oral mucosa is moist NECK: Supple. CARDIOVASCULAR: S1, S2 heard. Rate and rhythm regular. RESPIRATORY: Clear to auscultation. GASTROINTESTINAL: Abdomen is soft. MUSCULOSKELETAL: No tenderness. No edema. DERMATOLOGIC: No skin rash. NEUROLOGIC: Alert and awake and oriented X3. No focal neurologic deficits. Moving all the extremities. PSYCHIATRIC: Mood and affect normal. LABORATORY DATA: Potassium is 3.4, sodium is 129, BUN is 15, creatinine 1.2. ASSESSMENT AND PLAN: 1. Hyponatremia, continue fluid restriction, add tolvaptan, limit fluid intake. 2. Hypokalemia, replace and monitor. 3. Edema, controlled. 4. Acute kidney injury, stable. 5. . Limit fluid intake. Monitor sodium. Given a dose of tolvaptan yesterday. Job ID: [id number]
[2018-12-22 13:50] LABS: Vancomycin, Trough 18.3 ug/mL
--- NOTE | 2018-12-22 15:40 | PDOC.PN ---
- Subjective Encounter Start Date: 12/22/18 Encounter Start Time: 15:38 Subjective: feels better .took his own metoprolol last night & this morning - Objective MAR Reviewed: Yes Vital Signs & Weight: Vital Signs (12 hours) Temp Pulse Resp BP BP Pulse Ox 12/22/18 13:00 119/76 12/22/18 08:40 95 12/22/18 07:46 98.3 F 109 H 20 112/67 95 12/22/18 05:00 98.3 F 91 18 112/67 95 Weight Admit Weight 233 lb 1.6 oz Weight 220 lb I&O: 12/21/18 12/22/18 12/23/18 06:59 06:59 06:59 Intake Total 1240 1240 Output Total 2800 1500 Balance -1560 -260 Result Diagrams: 12/21/18 06:14 12/22/18 02:32 Additional Labs: Microbiology 12/21/18 14:40 Nasopharyngeal swab Respiratory Virus Panel (PCR) - Final 12/17/18 19:51 Venous blood - Right Arm Blood Culture - Preliminary NO GROWTH AT 48 HOURS 12/17/18 19:51 Venous blood - Left Arm Blood Culture - Preliminary NO GROWTH AT 48 HOURS Laboratory Tests 12/17/18 12/18/18 12/19/18 17:44 11:37 06:11 Sodium 114 L* 117 L* 119 L* Troponin I IgG Total IgA Total IgM Total HIV 1&2 Antigen & Ab 12/19/18 12/19/18 12/20/18 18:39 18:39 04:48 Sodium 126 L Troponin I IgG Total 544.00 IgA Total 177.00 IgM Total 52.00 HIV 1&2 Antigen & Ab Non-Reactive 12/21/18 12/21/18 12/21/18 06:14 13:04 20:46 Sodium 124 L 122 L Troponin I Less than 0.010 IgG Total IgA Total IgM Total HIV 1&2 Antigen & Ab 12/21/18 12/22/18 12/22/18 23:24 02:32 02:32 Sodium 129 L Troponin I Less than 0.010 0.015 IgG Total IgA Total IgM Total HIV 1&2 Antigen & Ab Dx/Plan (1) Hyponatremia Code(s): E87.1 - HYPO-OSMOLALITY AND HYPONATREMIA Status: Acute Comment: improved then worsened when fluid restriction relaxed.instituted strict fluid restriction again (2) TAJ (acute kidney injury) Code(s): N17.9 - ACUTE KIDNEY FAILURE, UNSPECIFIED Status: Acute Comment: improving (3) Hypotension Status: Acute Comment: suspect relative adrenal insufficiency.improved . on Florinef (4) Tachycardia Code(s): R00.0 - TACHYCARDIA, UNSPECIFIED Status: Acute Comment: restart BB. ? Withdrawl from muscle relaxants (5) HLD (hyperlipidemia) Code(s): E78.5 - HYPERLIPIDEMIA, UNSPECIFIED Status: Acute (6) Chronic stage c diastolic heart failure Code(s): I50.32 - CHRONIC DIASTOLIC (CONGESTIVE) HEART FAILURE Status: Acute (7) Coronary artery disease Code(s): I25.10 - ATHSCL HEART DISEASE OF [place] CORONARY ARTERY W/O ANG PCTRS Status: Acute (8) Osteoarthritis of hip Code(s): M16.9 - OSTEOARTHRITIS OF HIP, UNSPECIFIED Status: Acute (9) S/P CABG x 3 Code(s): Z95.1 - PRESENCE OF AORTOCORONARY BYPASS GRAFT Status: Acute (10) SLE (systemic lupus erythematosus) Code(s): M32.9 - SYSTEMIC LUPUS ERYTHEMATOSUS, UNSPECIFIED Status: Chronic Comment: no clear diagnosis - Plan DVT proph w/SCDs sodium better. restart lasix and monitor -: change ABx to PO.Defer to ID -: shun Aguayo in am -: stable.increase BB for palpitations. HR better.monitor BP -: advised to not use his own meds w/o notifying staff * . Review of Systems - Review of Systems Constitutional: weakness, malaise. negative: fever, chills, sweats, other ENT: Nose Congestion. negative: Ear Pain, Ear Discharge, Nose Pain, Nose Discharge, Mouth Pain, Mouth Swelling, Throat Pain, Throat Swelling, Other Respiratory: negative: Cough, Dry, Shortness of Breath, Hemoptysis, SOB with Excertion, Pleuritic Pain, Sputum, Wheezing Cardiovascular: palpitations. negative: chest pain, orthopnea, paroxysmal nocturnal dyspnea, edema, light headedness, other Gastrointestinal: negative: Nausea, Vomiting, Abdominal Pain, Diarrhea, Constipation, Melena, Hematochezia, Other Genitourinary: negative: Dysuria, Frequency, Incontinence, Hematuria, Retention , Other Musculoskeletal: negative: Neck Pain, Shoulder Pain, Arm Pain, Back Pain, Hand Pain, Leg Pain, Foot Pain, Other Neurological: negative: Weakness, Numbness, Incoordination, Change in Speech, Confusion, Seizures, Other - Medications/Allergies Allergies/Adverse Reactions: Allergies Allergy/AdvReac Type Severity Reaction Status Date / Time moxifloxacin [From Avelox] Allergy Rash Verified 11/24/18 17:33 Medications: Current Medications Acetaminophen (Tylenol) 650 mg PO Q4H PRN PRN Reason: Headache/Fever/Mild Pain (1-3) Last Admin: 12/21/18 21:55 Dose: 650 mg Albuterol/Ipratropium (Duoneb) 3 ml NEB [id number] PRN PRN Reason: SOB &/or Wheezing Last Admin: 12/19/18 12:03 Dose: 3 ml Alprazolam (Xanax) 0.5 mg PO TID PRN PRN Reason: Anxiety Last Admin: 12/21/18 21:55 Dose: 0.5 mg Aspirin (Ecotrin) 81 mg PO DAILY [facility] Last Admin: 12/22/18 08:46 Dose: 81 mg Atorvastatin Calcium (Lipitor) 20 mg PO DAILY [facility] Last Admin: 12/22/18 09:57 Dose: 20 mg Benzonatate (Tessalon) 100 mg PO Q6H PRN PRN Reason: Cough Last Admin: 12/21/18 00:01 Dose: 100 mg Bisacodyl (Dulcolax) 10 mg PO DAILYPRN PRN PRN Reason: Constipation Last Admin: 12/21/18 11:42 Dose: 10 mg Calcium Carbonate (Tums) 1,000 mg PO Q4H PRN PRN Reason: Heartburn or Indigestion Last Admin: 12/18/18 05:55 Dose: 1,000 mg Clonidine (Catapres) 0.1 mg PO Q4H PRN PRN Reason: SBP > _160___ Clopidogrel Bisulfate (Plavix) 75 mg PO DAILY [facility] Last Admin: 12/22/18 08:50 Dose: 75 mg Enoxaparin Sodium (Lovenox) 40 mg SC 2100 [facility] Last Admin: 12/21/18 21:57 Dose: 40 mg Famotidine (Pepcid) 20 mg PO BID [facility] Last Admin: 12/22/18 08:50 Dose: 20 mg Fluconazole (Diflucan) 100 mg PO DAILY [facility] Last Admin: 12/22/18 08:46 Dose: 100 mg Fludrocortisone Acetate (Florinef) 0.1 mg PO BID [facility] Last Admin: 12/22/18 08:50 Dose: 0.1 mg Fluticasone Propionate (Flonase Nasal [place]) 0 gm NASAL DAILY [facility] Last Admin: 12/22/18 08:47 Dose: 1 spr Furosemide (Lasix) 20 mg PO DAILY [facility] Guaifenesin (Robitussin Sf) 200 mg PO Q4H PRN PRN Reason: Cough Last Admin: 12/17/18 23:19 Dose: 200 mg Guaifenesin (Mucinex) 1,200 mg PO Q12HR [facility] Last Admin: 12/22/18 08:46 Dose: 1,200 mg Hydralazine HCl (Apresoline) 10 mg SLOW IVP Q4H PRN PRN Reason: SBP > 180 and HR < 70 Piperacillin Sod/Tazobactam (Sod 3.375 gm/ Sodium Chloride) 100 mls @ 200 mls/ hr IVPB Q6HR [facility] Last Admin: 12/22/18 12:22 Dose: 100 mls Vancomycin HCl 2 gm/ Sodium (Chloride) 500 mls @ 250 mls/hr IVPB 1400 [facility] Last Admin: 12/22/18 14:25 Dose: 500 mls Ipratropium [place] (Atrovent 0.03%) 1 ml EA NARE BID [facility] Last Admin: 12/22/18 08:50 Dose: 1 ml Methylprednisolone Sodium Succinate (Solu-Medrol) 20 mg IVP DAILY [facility] Last Admin: 12/22/18 08:46 Dose: 20 mg Metoprolol Tartrate (Lopressor) 25 mg PO BID [facility] Miscellaneous Medication (Pharmacy To Dose) 0 each IVPB ASDIR [facility] Ondansetron HCl (Zofran) 4 mg IVP Q6H PRN PRN Reason: Nausea/Vomiting Last Admin: 12/18/18 13:41 Dose: 4 mg Pantoprazole Sodium (Protonix) 40 mg PO DAILY [facility] Last Admin: 12/22/18 08:50 Dose: Not Given Pseudoephedrine HCl (Sudafed) 30 mg PO Q6H PRN PRN Reason: Nasal Congestion Senna/Docusate Sodium (Senokot S) 2 tab PO BID PRN PRN Reason: Constipation Last Admin: 12/21/18 08:46 Dose: 2 tab Sodium Chloride (Flush - Normal Saline) 10 ml IVF Q12HR [facility] Last Admin: 12/22/18 08:52 Dose: 10 ml Sodium Chloride (Flush - Normal Saline) 10 ml IVF PRN PRN PRN Reason: Saline Flush Tamsulosin HCl (Flomax) 0.4 mg PO DAILY [facility] Last Admin: 12/22/18 08:46 Dose: 0.4 mg
[2018-12-22 17:50] LABS: Potassium 3.4 mmol/L (3.5-5.1)
[2018-12-22] MEDS: Enoxaparin Sodium 40 MG/0.4 ML SYRINGE SC SCH (20:20)
[2018-12-22] MEDS: Acetaminophen 325 MG TAB PO PRN (21:28)
[2018-12-22] MEDS: ALPRAZolam 0.5 MG TAB PO PRN (21:28)
[2018-12-23] MEDS: Piperacillin/Tazobactam 3.375 GM in Sodium Chloride 0.9% 100 ML IVPB SCH ×2 (00:10→06:15)
[2018-12-23 07:05] LABS: Anion Gap 13 mmol/L (10-20); BUN (Urea Nitrogen) 19 mg/dL (8.4-25.7); Calc. Creatinine Clearance 100 mL/min (70-130); Carbon Dioxide 22 mmol/L (22-29); Chloride 104 mmol/L (98-107); Estimated GFR-MDRD 65; Glucose 87 mg/dL (70-105); Potassium 3.8 mmol/L (3.5-5.1); Sodium 135 mmol/L (136-145)
[2018-12-23] MEDS: Ipratropium Bromide 0.03% Nasal Inhaler 30 ml Bottle EA NARE SCH (08:44)
[2018-12-23] MEDS: Famotidine 20 MG TAB PO SCH (08:45)
[2018-12-23] MEDS: Clopidogrel Bisulfate 75 MG TAB PO SCH (08:45)
[2018-12-23] MEDS: Atorvastatin Calcium 20 MG TAB PO SCH (08:45)
[2018-12-23] MEDS: guaiFENesin ER 600 MG TAB PO SCH (08:45)
[2018-12-23] MEDS: Fluconazole 100 MG TAB PO SCH (08:45)
[2018-12-23] MEDS: Tamsulosin HCl 0.4 MG CAP PO SCH (08:45)
[2018-12-23] MEDS: Metoprolol Tartrate 25 MG TAB PO SCH (08:46)
[2018-12-23] MEDS: Aspirin 81 mg Enteric Coated Tablet PO SCH (08:46)
[2018-12-23] MEDS: Fluticasone Propionate Nasal Spray 16 gm Bottle NASAL SCH (08:47)
[2018-12-23] MEDS: Fludrocortisone Acetate 0.1 MG TAB PO SCH (08:50)
[2018-12-23] MEDS ORDERED: Furosemide 20 MG TAB PO SCH (09:00)
[2018-12-23 11:05] VITALS: BP 120/81; TEMP 98.6
--- NOTE | 2018-12-23 12:09 | PQF ---
CLINICAL DOCUMENTATION IMPROVEMENT CLARIFICATION FORM: ICD-10 Updated PLEASE DO AN ADDENDUM TO THE PROGRESS NOTE WITH ANY DOCUMENTATION UPDATES OR ADDITIONS AND CARRY THROUGH TO DC SUMMARY. THANK YOU. DATE: 12/23/18 ATTN: Dr. Mckeon Please exercise your independent, professional judgment in responding to the clarification form. Clinical indicators are provided on the bottom of this form for your review Please check appropriate box(s): [ X ] Hyponatremia please specify etiology, if known _Fluid overload and non compliance w fluid restriction [ ] Hyponatremia due to SIADH (Syndrome of Inappropriate Secretion of Antidiuretic Hormone) [ ] Other diagnosis [ ] Unable to determine In addition, please specify: Present on Admission (POA): [ X ] Yes [ ] No [ ] Unable to determine CLINICAL INDICATORS - SIGNS / SYMPTOMS / LABS H&P 12/17: Sodium 111 Hyponatremia. The pt has history of noncompliance with fluid restriction. Syndrome of inappropriate antidiuretic hormone secretion also cannot be ruled out. Nephrology Consult 12/17: Hyponatremia due to syndrome of inappropriate antidiuretic hormone secretion and excessive volume overload. PN 12/18-12/22: Hyponatremia. Acute ID CONSULT 12/19: Chronic hyponatremia, which appears more consistent with syndrome of inappropriate antidiuretic hormone secretion then with true adrenal insufficiency and chronic rhinosinusitis. RISKS: H&P 12/17: Hx of SLE, HTN, Chronic adrenal insufficiency. CAD, S/P CABG 2013. L kidney atrophy 2/2 to complication from AAA repair. CKD 4. Chronic sinusitis. Admitted for severe hyponatremia. TREATMENT: Nephrology Consult Order 12/17: Diet Heart Healthy. Fluid Restrictions 1000 ml/day Thank you, Meg (This form is maintained as a part of the permanent medical record) 2014 [employer]. All Rights Reserved Meg Alicea RN, BSN [email or web address] Office: [phone] [facility]
--- NOTE | 2018-12-23 17:16 | DIS ---
DATE OF ADMISSION: 12/17/2018 DATE OF DISCHARGE: 12/23/2018 DISCHARGE DISPOSITION: Home. PRIMARY CARE PHYSICIAN: Dr. Jin Maier. DISCHARGE DIAGNOSES: 1. Hyponatremia due to noncompliance with fluid restriction with history of congestive heart failure. 2. Acute on chronic sinusitis likely bacterial. 3. History of chronic diastolic congestive heart failure. 4. Sinus tachycardia. 5. Chronic pain. 6. Dyslipidemia. 7. History of coronary artery disease. 8. Chronic osteoarthritis of hip. 9. History of coronary artery bypass graft. 10. Questionable history of systemic lupus erythematosus. 11. Chronic adrenal insufficiency. IN-HOUSE CONSULTATION: 1. Nephrology, Dr. Tamayo. 2. Infectious Disease, Dr. Giles. PROCEDURES DONE IN THE HOSPITAL: 1. Lower extremity Doppler ultrasound which was negative for any DVT. 2. Pulmonary V/Q scan which was negative for any pulmonary embolism. 3. Sinuses, CT scan which showed right-sided maxillary and sphenoid sinusitis. DISCHARGE MEDICATIONS: 1. Augmentin 875 p.o. b.i.d. for 5 more days. 2. Florinef 0.1 mg p.o. b.i.d. 3. Flonase nasal spray. 4. Florastor 250 mg daily for 10 days. Multiple dose has been decreased from 50 p.o. b.i.d. to 25 p.o. b.i.d. Resume home medications as follows: 1. Aspirin 81 mg daily. 2. Atorvastatin 20 mg daily. 3. Soma 350 mg p.o. b.i.d. The patient is instructed to get off this medication if possible. 4. Prednisone 10 mg daily. 5. Plavix 75 mg daily. 6. Ranitidine 150 mg daily. 7. Xanax 0.5 mg t.i.d. p.r.n. 8. Dexilant 30 mg daily. 9. Flomax 0.4 mg daily. 10. Lasix 20 mg daily. HISTORY OF PRESENTING ILLNESS: Mr. Medina is a 58-year-old male with known history of coronary artery disease, chronic diastolic congestive heart failure, chronic pain, as well as questionable history of SLE and chronic adrenal insufficiency on prednisone, who presented to the emergency room with complaints of not feeling well, sinus congestion, nasal drainage, weakness, tiredness, and palpitations. He was found to have significant hyponatremia with a sodium of 111 upon presentation as well as elevated creatinine above his baseline. He has seen Nephrology, Dr. Tamayo recently and he was consulted again. Please see admission history and physical for further details. The patient was put on a very strict fluid restriction and Lasix was held. HOSPITAL COURSE: The patient was started empirically on antibiotic for his persistent significant complaints of prolonged sinus drainage, headache, weakness, tiredness, and general purulent like discharge from his nose for months. Infectious Disease was also consulted. He also was found to be hypotensive and tachycardiac and given his history of chronic adrenal insufficiency, he was started on IV Solu-Medrol. His sodium improved gradually with strict fluid restriction and Lasix was restarted. As of discharge, his sodium is 135. He was instructed for strict fluid restriction up to 1200 to 1500 mL per day with continuation of Lasix. Hydrochlorothiazide was discontinued. Please continue Lasix as it does not cause hyponatremia. Dr. Giles was consulted with regard to the question of antibiotics as it was felt that the patient does not need IV antibiotics. A sinus CT was done which was consistent with sinusitis, which was consistent with his presenting symptoms. His empiric antibiotics were changed to oral antibiotics. He had significant improvement in his symptoms. He was treated with ipratropium nasal spray as well as Flonase and nebulizers in the hospital. All in all, the patient is noncompliant. He is once again educated strongly about the need to stop smoking. His also needs to stop smoking and he needs to follow a strict fluid-restricted diet. Because of low blood pressure, his metoprolol dose was reduced and his heart rate was under good control. He will follow up with his own boat camp operator, Dr. Byrnes in the outpatient setting, but he had no cardiac signs or symptoms while in the hospital. There is also question of chronic adrenal insufficiency and SLE. I have instructed the patient to follow up with the machine cementer as there is no clear indication that he has SLE. Dr. Giles checked his complement levels and HIV, which were all unremarkable and within normal limits. The patient will resume his prednisone 10 mg daily, but I really feel that he needs to see a machine cementer and get a formal evaluation for his SLE as well as question of chronic adrenal insufficiency. For the time being, he is being started on Florinef as per the recommendations of Nephrology, which will be continued. He will follow up with Dr. Tamayo in the outpatient setting. The patient remains high risk for readmission and complications from hyponatremia due to noncompliance history. Please note that he had a CT scan done of his chest in October 2018, which did not show any pulmonary nodules which can be suspicious of cancer. PHYSICAL EXAMINATION: VITAL SIGNS: Temperature 98.6, pulse of 85, respirations 18, saturating 96% on room air, blood pressure 120/81. GENERAL: No acute distress, sitting up in chair. CHEST: Clear to auscultation bilaterally without any wheezing. HEART: Rate, rhythm is regular. The patient was seen and examined prior to discharge. Total time spent 32 minutes. Job ID: [id number]
--- NOTE | 2018-12-24 04:07 | PRG ---
DATE OF SERVICE: 12/23/2018 SUBJECTIVE: Patient was seen and examined at bedside and overnight events noted. Patient denies any shortness of breath or chest pain or palpitation. No history of nausea or vomiting or diarrhea or fever or chills or cramps. OBJECTIVE: GENERAL: This is a well-built male, in no apparent distress. VITAL SIGNS: Temperature , pulse 85, respirations , blood pressure 130/81. HEENT: Atraumatic, normocephalic. Oral mucosa is moist NECK: Supple. CARDIOVASCULAR: S1, S2 heard. Rate and rhythm regular. RESPIRATORY: Clear to auscultation. GASTROINTESTINAL: Abdomen is soft. MUSCULOSKELETAL: No tenderness. No edema. DERMATOLOGIC: No skin rash. NEUROLOGIC: Alert and awake and oriented X3. No focal neurologic deficits. Moving all the extremities. PSYCHIATRIC: Mood and affect normal. LABORATORY DATA: Potassium is 3.8, BUN is 19, creatinine is 1.1. Sodium is 135. ASSESSMENT AND PLAN: 1. Hyponatremia. 2. Hypokalemia, we will monitor. 3. Edema, controlled. 4. Acute kidney injury. 5. Hypertension. 6. Sodium is better. We will follow. Job ID: [id number]
== END 2018-12-23 12:28 | disposition home or self-care (01) | DRG 641 ==
LOC: ERS 14:16 → IMCU/EMU 17:00 → T4-A 12-20 22:13
PROVIDERS: ADMIT Internal Medicine; ATTEND Internal Medicine
DX: E87.1 Hypo-osmolality and hyponatremia (principal); I50.32 Chronic diastolic (congestive) heart failure; E27.40 Unspecified adrenocortical insufficiency; I13.0 Hypertensive heart and chronic kidney disease with heart failure and stage 1 through stage 4 chronic kidney disease, or unspecified chronic kidney disease; N18.4 Chronic kidney disease, stage 4 (severe); N17.9 Acute kidney failure, unspecified; M32.9 Systemic lupus erythematosus, unspecified; E78.5 Hyperlipidemia, unspecified; I25.10 Atherosclerotic heart disease of native coronary artery without angina pectoris; N26.1 Atrophy of kidney (terminal); J32.9 Chronic sinusitis, unspecified; Z96.642 Presence of left artificial hip joint; Z91.19 Patient's noncompliance with other medical treatment and regimen; M16.9 Osteoarthritis of hip, unspecified; I95.9 Hypotension, unspecified; J45.909 Unspecified asthma, uncomplicated; G89.29 Other chronic pain; R00.0 Tachycardia, unspecified; F17.210 Nicotine dependence, cigarettes, uncomplicated; E87.6 Hypokalemia; Z95.1 Presence of aortocoronary bypass graft
CPT/HCPCS: 36415; 71046; 78582; 80048; 80053; 80202; 81001; 83735; 83930; 83935; 84484; 85025; 85379; 87040; 87389; 87633; 93005; 93010; 93970; 94640; 96374; 96375; A9540; A9558; J1644; J1650; J1940; J2270; J2405; J2543; J2920; J3370; J3480; J7050; J7620

== ENCOUNTER 2019-04-12 13:16 | Emergency (ER) | payer OTHER ==
[2019-04-12 14:07] LABS: #Lymphocytes 1.1 thou/uL (1.20-3.40); #Monocytes 0.7 thou/uL (0.11-0.59); #Neutrophils 9.7 thou/uL (1.40-6.50); %Basophils 0.3 % (0.0-1.0); %Eosinophils 0.2 % (0.0-10.0); %Lymphocytes 9.7 % (21.0-51.0); %Monocytes 6.3 % (0.0-10.0); %Neutrophils 83.5 % (42.0-75.0); Hemoglobin 11.4 g/dL (14.0-18.0); Mean Corpuscular HGB CONC 31.6 g/dL (32.0-36.0); Mean Corpuscular Hemoglobin 24.9 pg (27.0-31.0); Mean Corpuscular Volume 78.6 fL (78.0-98.0); Mean Platelet Volume 7.6 fL (7.4-10.4); Platelet Count 294 thou/uL (130-400); RBC Distribution Width 14.7 % (11.5-14.5); White Blood Cell (WBC) Count 11.6 thou/uL (4.8-10.8)
[2019-04-12 14:31] LABS: ALT (SGPT) 12 U/L (8-55); AST (SGOT) 20 U/L (5-34); Albumin 3.5 g/dL (3.5-5.0); Alkaline Phosphatase 85 U/L (40-150); Anion Gap 15 mmol/L (10-20); BUN (Urea Nitrogen) 14 mg/dL (8.4-25.7); Bilirubin, Total 0.2 mg/dL (0.2-1.2); Calc. Creatinine Clearance 0 mL/min (70-130); Calcium 8.9 mg/dL (7.8-10.44); Carbon Dioxide 28 mmol/L (22-29); Chloride 95 mmol/L (98-107); Estimated GFR-MDRD 56; Globulin 3.1 g/dL (2.4-3.5); Glucose 116 mg/dL (70-105); Potassium 3.4 mmol/L (3.5-5.1); Protein, Total 6.6 g/dL (6.0-8.3); Sodium 135 mmol/L (136-145)
--- NOTE | 2019-04-12 15:09 | RAD ---
PORTABLE CHEST ONE VIEW: 04/12/2019 2:23 p.m. HISTORY: Adrenal crisis. COMPARISON: 02/18/2019 FINDINGS: Changes of median sternotomy are again seen. The heart size remains at the upper limits of normal. The lungs are well expanded without lobar consolidation, pneumothoraces, katy pulmonary edema, or pl eural effusions. IMPRESSION: No acute process. POS: [facility]
[2019-04-12] MEDS ORDERED: Acetaminophen 500 MG TAB ONE (15:19)
--- NOTE | 2019-04-16 11:28 | EKG ---
Test Reason : Blood Pressure : / mmHG Vent. Rate : 079 BPM Atrial Rate : 079 BPM P-R Int : 150 ms QRS Dur : 104 ms QT Int : 406 ms P-R-T Axes : 023 053 086 degrees QTc Int : 465 ms Normal sinus rhythm Possible Left atrial enlargement Nonspecific ST and T wave abnormality -old Prolonged QT Abnormal ECG Confirmed by RHEA LOWE DO ([id number]), editor news TOYIN PLUNKETT ([id number]) on 04/16/2019 11:28:25 AM Referred By: Confirmed By:RHEA LOWE DO
== END 2019-04-12 15:55 | disposition home or self-care (01) ==
LOC: ERS 13:16
DX: I13.2 Hypertensive heart and chronic kidney disease with heart failure and with stage 5 chronic kidney disease, or end stage renal disease (principal); I50.9 Heart failure, unspecified; N18.6 End stage renal disease; E78.5 Hyperlipidemia, unspecified; E86.0 Dehydration; E27.40 Unspecified adrenocortical insufficiency; M19.90 Unspecified osteoarthritis, unspecified site; I71.4 Abdominal aortic aneurysm, without rupture; I25.10 Atherosclerotic heart disease of native coronary artery without angina pectoris; F17.210 Nicotine dependence, cigarettes, uncomplicated; Z79.899 Other long term (current) drug therapy; Z79.82 Long term (current) use of aspirin
CPT/HCPCS: 71045; 80053; 82533; 83880; 84484; 85025; 93005; 94760; 96360; 96361

== ENCOUNTER 2019-04-13 08:23 | Day surgery (SDC) | payer OTHER ==
[2019-04-12 15:57] VITALS: BMI 30.3
[2019-04-13] MEDS ORDERED: Lidocaine 1% PF 5 ML VIAL ONE (13:32)
[2019-04-13] MEDS ORDERED: PROPOFOL 200 MG/20 ML VIAL ONE (13:32)
--- NOTE | 2019-04-13 15:02 | OP ---
DATE OF PROCEDURE: 04/13/2019 PROCEDURE PERFORMED: Esophagogastroduodenoscopy with biopsy. PREOPERATIVE DIAGNOSIS: Odynophagia on immunosuppressive medications. DESCRIPTION OF PROCEDURE: Informed consent was obtained from the patient. He was sedated with total intravenous anesthesia. The bite block was placed and the endoscope was advanced easily to the second portion of the duodenum and retroflexion was performed in the stomach. The esophagus had severe diffuse fungal esophagitis. Biopsies were obtained. The GE junction was normal. Stomach was normal including retroflexed views. The pylorus and first and second portions of the duodenum were normal. IMPRESSION: Severe fungal esophagitis. RECOMMENDATIONS: 1. Fluconazole 400 mg today and then 200 mg daily for 13 more days. 2. Follow up in GI clinic. Job ID: [id number]
== END 2019-04-13 11:55 | disposition home or self-care (01) ==
LOC: SDC 08:23
PROVIDERS: ATTEND Internal Medicine Gastroenterology
PROC: 0DB58ZX Excision of Esophagus, Via Natural or Artificial Opening Endoscopic, Diagnostic (ICD-10-PCS; principal; 2019-04-13)
DX: B37.81 Candidal esophagitis (principal); K21.9 Gastro-esophageal reflux disease without esophagitis; F17.200 Nicotine dependence, unspecified, uncomplicated; Z79.82 Long term (current) use of aspirin; Z79.899 Other long term (current) drug therapy; Z88.1 Allergy status to other antibiotic agents
CPT/HCPCS: 88305; 88312; 88313; J2001; J2704

== ENCOUNTER 2019-05-11 05:59 | Day surgery (SDC) | payer OTHER ==
[2019-05-06 15:20] VITALS: BMI 32.3
[2019-05-11] MEDS ORDERED: Lidocaine 1% (PF) 30 ML VIAL ONE (06:45)
[2019-05-11 06:57] LABS: #Eosinphils 0.2 thou/uL (0.0-0.7); #Lymphocytes 1.9 thou/uL (1.20-3.40); #Monocytes 0.8 thou/uL (0.11-0.59); #Neutrophils 6.5 thou/uL (1.40-6.50); %Basophils 0.2 % (0.0-1.0); %Lymphocytes 20.5 % (21.0-51.0); %Monocytes 8.2 % (0.0-10.0); %Neutrophils 69.1 % (42.0-75.0); Hemoglobin 10.2 g/dL (14.0-18.0); Mean Corpuscular HGB CONC 30.9 g/dL (32.0-36.0); Mean Corpuscular Hemoglobin 23.9 pg (27.0-31.0); Mean Corpuscular Volume 77.4 fL (78.0-98.0); Mean Platelet Volume 6.9 fL (7.4-10.4); Platelet Count 361 thou/uL (130-400); Red Blood Cell (RBC) Count 4.26 mill/uL (4.70-6.10); White Blood Cell (WBC) Count 9.4 thou/uL (4.8-10.8)
[2019-05-11 07:01] LABS: Prothrombin Time 12.8 SEC (12.0-14.7)
[2019-05-11 07:02] LABS: PTT 27.4 SEC (22.9-36.1)
[2019-05-11 07:21] LABS: ALT (SGPT) 10 U/L (8-55); AST (SGOT) 10 U/L (5-34); Albumin 3.4 g/dL (3.5-5.0); Alkaline Phosphatase 72 U/L (40-150); Anion Gap 13 mmol/L (10-20); BUN (Urea Nitrogen) 11 mg/dL (8.4-25.7); Bilirubin, Total 0.3 mg/dL (0.2-1.2); Calc. Creatinine Clearance 110 mL/min (70-130); Carbon Dioxide 30 mmol/L (22-29); Cardiac Risk 3.4 (Less than 4.5); Chloride 98 mmol/L (98-107); Cholesterol 216 mg/dl (< 200 Desired); Estimated GFR-MDRD 65; Globulin 2.6 g/dL (2.4-3.5); Glucose 97 mg/dL (70-105); HDL Cholesterol 63 mg/dL (>60 Neg Risk); LDL Cholesterol, Calculated 132 mg/dL; Sodium 139 mmol/L (136-145); Triglycerides 107 mg/dL (Less than 150)
[2019-05-11 07:23] LABS: Potassium 2.4 mmol/L (3.5-5.1)
[2019-05-11] MEDS ORDERED: Potassium Chloride 20 MEQ TAB PO SCH (07:30)
[2019-05-11] MEDS ORDERED: Midazolam HCl 2 mg/2 ml Vial ONE (07:47)
[2019-05-11] MEDS ORDERED: Fentanyl 100 MCG/2 ML VIAL ONE (07:47)
[2019-05-11] MEDS ORDERED: Iopamidol 370 76% 100 ML VIAL ONE (10:04)
== END 2019-05-11 11:22 | disposition home or self-care (01) ==
LOC: CCL 05:59
PROVIDERS: ATTEND Internal Medicine Cardiovascular Disease
PROC: 4A023N7 Measurement of Cardiac Sampling and Pressure, Left Heart, Percutaneous Approach (ICD-10-PCS; principal; 2019-05-11)
PROC: B2151ZZ Fluoroscopy of Left Heart using Low Osmolar Contrast (ICD-10-PCS; principal; 2019-05-11)
PROC: B2111ZZ Fluoroscopy of Multiple Coronary Arteries using Low Osmolar Contrast (ICD-10-PCS; principal; 2019-05-11)
DX: I25.10 Atherosclerotic heart disease of native coronary artery without angina pectoris (principal); I25.82 Chronic total occlusion of coronary artery; I11.0 Hypertensive heart disease with heart failure; I50.9 Heart failure, unspecified; J44.9 Chronic obstructive pulmonary disease, unspecified; E78.00 Pure hypercholesterolemia, unspecified; N26.1 Atrophy of kidney (terminal); M79.604 Pain in right leg; M79.605 Pain in left leg; L93.0 Discoid lupus erythematosus; K21.9 Gastro-esophageal reflux disease without esophagitis; E87.1 Hypo-osmolality and hyponatremia; M19.90 Unspecified osteoarthritis, unspecified site; J32.9 Chronic sinusitis, unspecified; F17.210 Nicotine dependence, cigarettes, uncomplicated; Z95.1 Presence of aortocoronary bypass graft; Z98.890 Other specified postprocedural states; Z88.1 Allergy status to other antibiotic agents; Z79.82 Long term (current) use of aspirin; Z79.899 Other long term (current) drug therapy
CPT/HCPCS: 80053; 80061; 85025; 85610; 85730; 93459; 99152; C1769; J1644; J2001; J2250; J3010; Q9967

== ENCOUNTER 2019-05-25 10:53 | Inpatient (IN) | payer OTHER ==
[2019-05-25] MEDS ORDERED: Potassium Chloride 20 MEQ TAB ONE (11:20)
[2019-05-25] MEDS ORDERED: Nitroglycerin 0.4 MG TAB (25 Tab Bottle) SL PRN (12:30)
[2019-05-25] MEDS ORDERED: Benzonatate 100 MG CAP PO PRN (12:30)
[2019-05-25] MEDS ORDERED: Sodium Chloride 0.65% Nasal 44 ML BOT EA NARE PRN (12:30)
[2019-05-25] MEDS ORDERED: hydrALAZINE 20 MG/ML VIAL SLOW IVP PRN (12:30)
[2019-05-25] MEDS ORDERED: Diabetic Tussin 200 MG/10 ML UDCUP PO PRN (12:30)
[2019-05-25] MEDS ORDERED: Acetaminophen 325 MG TAB PO PRN (12:30)
[2019-05-25] MEDS ORDERED: Senokot S 8.6-50 MG TAB PO PRN ×2 (12:30)
[2019-05-25] MEDS ORDERED: Ondansetron PF 4 MG/2 ML Vial IVP PRN ×2 (12:30)
[2019-05-25] MEDS ORDERED: cloNIDine 0.1 MG TAB PO PRN (12:30)
[2019-05-25] MEDS ORDERED: Calcium Carbonate 500 MG ChewTAB PO PRN (12:30)
[2019-05-25] MEDS ORDERED: predniSONE 20 MG TAB PO SCH (12:45)
[2019-05-25] MEDS ORDERED: Fludrocortisone Acetate 0.1 MG TAB PO SCH (13:00)
--- NOTE | 2019-05-25 14:11 | HP ---
PRIMARY CARE PHYSICIAN: Dr. Jin Maier. CHIEF COMPLAINT: Generalized weakness and aches, nausea, poor appetite, chest pain, low blood pressure. HISTORY OF PRESENTING ILLNESS: Mr. Medina is a 58-year-old male with known past medical history of chronic diastolic congestive heart failure as well as history of chronic adrenal insufficiency, on immunosuppressant medications; history of chronic kidney disease; chronic hyponatremia; and chronic sinusitis as well as coronary artery disease; who presented to [place] emergency room in [facility] for the above-mentioned complaints. History is mainly obtained by the patient himself. Electronic medical records have been reviewed. Case has been discussed with admitting ER physician, Dr. Salvador. Mr. Medina reports that recently he had a PET scan done by Dr. Silverio and was found to have abnormal ischemic changes. He underwent a heart catheterization earlier this month. He does not really know the results, but reportedly it was within normal limit. He did notice some fluid retention for the last few days, so he went back to Dr. Silverio and was put on Zaroxolyn 2.5 mg daily along with continuation of Lasix. He cut his Lasix from twice a day to once a day and has been taking Zaroxolyn for the last 3 days. He reports that his leg swelling has completely gone down, but he has been feeling weak, tired, nauseated with some chest discomfort since yesterday morning. He is on multiple pain medications and muscle relaxant because of his chronic back pain. Because of these symptoms, he felt that his sodium most likely is low because that is how he feels when his sodium is low. He presented to [facility] ER. His blood pressure was 87/56 upon presentation and his blood work indeed was consistent with hyponatremia. His sodium was found to be low to 123 and his normal baseline sodium is around 129 to 130. His potassium was also found to be down to 2.4. His creatinine was 1.64, which is slightly above his baseline at 1.3. He was given 1 L of saline. Cardiac enzymes were normal. BNP was not checked, but has been checked since then and it is normal as well. Chest x-ray did not show any significant pulmonary vascular congestion. Because of concerns for chest pain, the patient received 1 dose of Lovenox in the [facility] ER and was transferred to our facility for further evaluation. In our ER, his BNP was found to be normal. Magnesium and troponin levels were also normal. He is now being admitted for further evaluation and care. He has received 20 mg more of potassium chloride in the ER. The patient is otherwise compliant with his medications of prednisone. Please note that he is also on Florinef for chronically low blood pressure. He has a history of noncompliance with fluid restriction leading to hyponatremia in the past. He was seen by myself in November of this year. The patient has also undergone an EGD by Dr. Frank last month and was found to have severe fungal esophagitis, which was treated with 14 days of oral Diflucan. Pathology was reviewed by myself, which showed no Chong's esophagus. He had acute erosive Bettina esophagitis on the pathology. PAST MEDICAL HISTORY: 1. Chronic diastolic congestive heart failure. 2. Coronary artery disease with recent catheterization results are unavailable at this time. 3. Chronic hyponatremia. 4. Chronic adrenal insufficiency, on prednisone. 5. Vague history of collagen vascular disease versus SLE. The patient has refused to follow up with the supervisor curing room and continues to take prednisone 10 mg daily for this. 6. Hypertension. 7. Dyslipidemia. 8. Chronic left kidney atrophy due to complication from AAA repair leading to chronic kidney disease. 9. Tobacco abuse. 10. Osteoarthritis. 11. Chronic sinusitis. PAST SURGICAL HISTORY: 1. Back surgery in 2018. 2. Appendectomy. 3. AAA repair in 2016 and then again in March 2017 with stenting. 4. Left hip replacement. 5. Hernia repair. 6. Sinus surgery. 7. Heart catheterization, most recently earlier this month. 8. EGD in March 2019. 9. Cardiac stent placement in January 2017. SOCIAL HISTORY: He is on and off smoker. He has smoked almost his entire life. He is and lives with his . No history of drug or alcohol abuse. ALLERGIES: INCLUDE AVELOX. HOME MEDICATIONS: As per the ER records. He is on following medications; 1. Lasix 40 mg b.i.d. 2. Soma 350 mg b.i.d., he states that he takes [id number]. 3. Metoprolol tartrate 25 b.i.d. 4. Alprazolam 0.5 mg p.r.n. 5. Atorvastatin 20 mg at bedtime. 6. Fluconazole 200 mg daily. 7. Tamsulosin 0.4 mg daily. 8. Prednisone 10 or 15 mg daily. 9. Zofran p.r.n. 10. Promethazine p.r.n. These medications list does not seem to be correct. This further needs to be confirmed. REVIEW OF SYSTEMS: A 14-point review of system is done, it is negative except for those mentioned in the history and physical. LABORATORY DATA: As per HPI, otherwise within normal limits. His WBCs are 13.1 with 84% neutrophils, hemoglobin is 11.8, platelet count of 348. BUN 19, creatinine 1.64, sodium 123, potassium 2.4, magnesium normal. BNP normal. Cardiac enzyme less than 0.010 x2 with normal CK-MB. DIAGNOSTIC STUDIES: Chest x-ray by my review has no evidence of pleural effusion, edema, or infiltrate. A 12-lead EKG by my review shows no acute ST or T-wave changes, but the EKG done at [facility] was unequivocal with concerns of some ST depression in the anterior and lateral leads. PHYSICAL EXAMINATION: VITAL SIGNS: Upon presentation, blood pressure 87/56, pulse of 85, saturating 100% on room air, respirations 17, temperature 98.1. GENERAL: No acute distress. Awake, alert, and oriented x3. HEENT: Mucous membrane is moist and pink. No oropharyngeal exudate or erythema. Head is normocephalic and atraumatic. Pupils are equal and reactive to light and accommodation. Extraocular movement intact. NECK: Supple without any lymphadenopathy, JVD, or bruit. CHEST: Clear to auscultation without any wheezing, rales, or rhonchi. Rate and rhythm are regular without any murmurs, rubs, or gallops. ABDOMEN: Soft, nontender, nondistended, with positive bowel sounds. EXTREMITIES: Free of any cyanosis, clubbing, or edema. NEUROLOGICAL: Nonfocal. SKIN: Free of any rashes or bruises. Feels warm and dry to touch. IMPRESSION AND PLAN: 1. Hyponatremia. This patient has chronic hyponatremia, which is exacerbated by his taking of metolazone for the last few days. We will discontinue this diuretic and put him on strict fluid restriction. We will avoid any further saline. He has received more than 1 L of normal saline. We will consult Nephrology, who has seen him in the past for hyponatremia. We will monitor his serum sodium numbers on a few hourly basis. 2. Hypokalemia. The patient has received a total of 60 mEq of potassium chloride. We will recheck in few hours along with sodium. 3. Chest pain. I do not suspect this patient is having an acute ACS. We will restart his home medication and get his cardiac catheterization results from Dr. Silverio's office. He reports that he is due for another echocardiogram as of tomorrow. We will go ahead and obtain the echo while he is here. 4. Hypotension. The patient's blood pressure chronically is on the lower side with his chronic adrenal insufficiency. We will restart his Florinef and prednisone for now. He is asymptomatic with this amount of blood pressure. He will be monitored and we will avoid significant lowering. 5. Coronary artery disease. Restart home medications once the dosages are confirmed. 6. Chronic diastolic heart failure. We will hold his diuretics and acute hyponatremia setting including Lasix as he is currently very well compensated. 7. Chronic sinusitis. 8. History of systemic lupus erythematosus, stable. Continue prednisone. 9. Deep venous thrombosis and gastrointestinal prophylaxis. DISPOSITION: Mr. Medina is currently being admitted to the hospital with severe hyponatremia and hypokalemia. Estimated length of stay at this time is at least 2 to 3 midnights. Further management will depend upon his clinical course. Job ID: [id number]
[2019-05-25 14:58] VITALS: BMI 32.1
[2019-05-25] MEDS: Heparin 5,000 UNITS/ML VIAL SC SCH ×2 (15:22→20:34)
[2019-05-25 17:47] LABS: Anion Gap 15 mmol/L (10-20); BUN (Urea Nitrogen) 19 mg/dL (8.4-25.7); Calc. Creatinine Clearance 90 mL/min (70-130); Calcium 9.3 mg/dL (7.8-10.44); Carbon Dioxide 27 mmol/L (22-29); Chloride 86 mmol/L (98-107); Estimated GFR-MDRD 52; Glucose 120 mg/dL (70-105); Sodium 125 mmol/L (136-145)
[2019-05-25 17:51] LABS: Potassium 2.9 mmol/L (3.5-5.1)
[2019-05-25] MEDS ORDERED: Potassium Chloride 20 MEQ TAB PO SCH ×2 (19:45→20:00)
[2019-05-25] MEDS: Famotidine 20 MG TAB PO SCH (20:34)
[2019-05-25] MEDS: Fludrocortisone Acetate 0.1 MG TAB PO SCH (20:36)
[2019-05-26 05:25] LABS: #Eosinphils 0.1 thou/uL (0.0-0.7); #Lymphocytes 1.6 thou/uL (1.20-3.40); #Monocytes 0.8 thou/uL (0.11-0.59); #Neutrophils 9.3 thou/uL (1.40-6.50); %Basophils 0.3 % (0.0-1.0); %Eosinophils 1.2 % (0.0-10.0); %Lymphocytes 13.3 % (21.0-51.0); %Monocytes 6.7 % (0.0-10.0); %Neutrophils 78.5 % (42.0-75.0); Hemoglobin 10.4 g/dL (14.0-18.0); Mean Corpuscular HGB CONC 32.2 g/dL (32.0-36.0); Mean Corpuscular Hemoglobin 24.3 pg (27.0-31.0); Mean Corpuscular Volume 75.3 fL (78.0-98.0); Platelet Count 311 thou/uL (130-400); RBC Distribution Width 15.2 % (11.5-14.5); Red Blood Cell (RBC) Count 4.28 mill/uL (4.70-6.10); White Blood Cell (WBC) Count 11.9 thou/uL (4.8-10.8)
[2019-05-26 05:46] LABS: Phosphorus 2.5 mg/dL (2.3-4.7)
[2019-05-26 05:48] LABS: Anion Gap 13 mmol/L (10-20); BUN (Urea Nitrogen) 17 mg/dL (8.4-25.7); Calc. Creatinine Clearance 117 mL/min (70-130); Calcium 8.9 mg/dL (7.8-10.44); Carbon Dioxide 27 mmol/L (22-29); Chloride 91 mmol/L (98-107); Estimated GFR-MDRD 70; Glucose 122 mg/dL (70-105); Magnesium 2.4 mg/dL (1.6-2.6); Sodium 128 mmol/L (136-145)
[2019-05-26 05:53] LABS: Potassium 2.8 mmol/L (3.5-5.1)
[2019-05-26] MEDS ORDERED: Potassium Chloride 20 MEQ TAB PO SCH ×2 (06:30→10:00)
[2019-05-26] MEDS ORDERED: Potassium Chloride 20 MEQ/100 ML PREMIX BAG IVPB SCH (06:30)
[2019-05-26 07:48] VITALS: BP 160/107; TEMP 98.3
[2019-05-26] MEDS ORDERED: predniSONE 20 MG TAB PO SCH (08:00)
--- NOTE | 2019-05-26 08:59 | CON ---
DATE OF CONSULTATION: 05/25/2019 CONSULTING PHYSICIAN: Dr. Mckeon. REASON FOR CONSULTATION: Hyponatremia, hypokalemia TJA. REASON FOR ADMISSION: Weakness. HISTORY OF PRESENT ILLNESS: A 58-year-old male with history of CHF, coronary artery disease, CKD, hypertension, came to the hospital with above complaints, found to have alkaline imbalance and acute kidney injury including hypokalemia, hyponatremia. Nephrology was consulted. The patient was on diuretics before the hospitalization. No fever or chills. No nausea, vomiting, diarrhea. PAST MEDICAL HISTORY: Positive for CHF, CAD, chronic adrenal insufficiency, hyponatremia, collagen vascular disease, hypertension, hyperlipidemia, tobacco use, osteoarthritis, and chronic sinusitis. PAST SURGICAL HISTORY: Back surgery, appendectomy, AAA repair, left hip replacement, hernia repair, sinus surgery, heart catheterization, EGD, cardiac stent. HOME MEDICATIONS: 1. Lasix. 2. Soma. 3. Metoprolol. 4. Alprazolam. 5. Atorvastatin. 6. Fluconazole. 7. Tamsulosin. 8. Prednisone. 9. Zofran. 10. Promethazine. ALLERGIES: TO AVELOX. SOCIAL HISTORY: He smoked. No alcohol or illicit drug abuse. FAMILY HISTORY: No history of kidney disease. REVIEW OF SYSTEMS: CONSTITUTIONAL: Negative for weight loss or gain, ability to conduct usual activities. SKIN: Negative for rash, itching. EYES: Negative for double vision, pain. ENT/MOUTH: Negative for nose bleeding, neck stiffness, pain, tenderness. CARDIOVASCULAR: Negative for palpitations, dyspnea on exertion, orthopnea. RESPIRATORY: Negative for shortness of breath, wheezing, cough, hemoptysis, fever or night sweats. GASTROINTESTINAL: Negative for poor appetite, abdominal pain, heartburn, nausea, vomiting, constipation, or diarrhea. GENITOURINARY: Negative for urgency, frequency, dysuria, nocturia. MUSCULOSKELETAL: Negative for pain, swelling. NEUROLOGIC/PSYCHIATRIC: Negative for anxiety, depression. ALLERGY/IMMUNOLOGIC: Negative for skin rash, bleeding tendency. Rest are negative review of systems. PHYSICAL EXAMINATION: GENERAL: A well-built male, in no apparent distress. VITAL SIGNS: Temperature 98.2, pulse 95, respiratory rate 18, blood pressure 101/52. HEENT: Atraumatic and normocephalic. Oral mucosa is moist. NECK: Supple. CVS: S1 and S2 heard. Rate and rhythm regular. RESPIRATORY: Clear. GI: Abdomen is soft. MUSCULOSKELETAL: 1+ edema. DERMATOLOGIC: No skin rash. NEUROLOGIC: Alert and awake. PSYCHIATRIC: Mood and affect normal. LABORATORY DATA: Potassium 2.9, sodium is 125, BUN is 19, and creatinine is 1.4. ASSESSMENT AND PLAN: 1. Acute kidney injury, most likely from volume depletion. 2. Hypokalemia, replace. 3. Hyponatremia. 4. Hypochloremia. 5. Edema. 6. Hypotension. 7. Continue hydration and replace electrolytes. We will check magnesium and phosphorus level too. Thank you for the consult. Job ID: [id number]
[2019-05-26] MEDS: Fludrocortisone Acetate 0.1 MG TAB PO SCH (09:09)
[2019-05-26] MEDS: Famotidine 20 MG TAB PO SCH (09:09)
[2019-05-26] MEDS: Heparin 5,000 UNITS/ML VIAL SC SCH (09:10)
--- NOTE | 2019-05-26 12:06 | PRG ---
DATE OF SERVICE: 05/26/2019 SUBJECTIVE: Patient was seen and examined at bedside and overnight events noted. Patient denies any shortness of breath or chest pain or palpitation. No history of nausea or vomiting or diarrhea or fever or chills or cramps. OBJECTIVE: GENERAL: This is a well-built male, in no acute distress. VITAL SIGNS: Temperature 98.3. Heart rate 97. Respiratory rate . Blood pressure 115/65. HEENT: Atraumatic, normocephalic. Oral mucosa is moist NECK: Supple. CARDIOVASCULAR: S1, S2 heard. Rate and rhythm regular. RESPIRATORY: Clear to auscultation. GASTROINTESTINAL: Abdomen is soft. MUSCULOSKELETAL: No tenderness. DERMATOLOGIC: No skin rash. NEUROLOGIC: Alert and awake and oriented X3. No focal neurologic deficits. Moving all the extremities. PSYCHIATRIC: Mood and affect normal. LABORATORY DATA: Potassium 2.8, BUN is 17, and creatinine is 1.8. ASSESSMENT AND PLAN: 1. Acute kidney injury, better. 2. Hypokalemia with hyponatremia. 3. Hypochloremia. 4. Edema. 5. Hypertension. 6. Stable adrenal insufficiency. Continue to replace electrolytes, monitor closely. Job ID: [id number]
--- NOTE | 2019-05-27 05:40 | DIS ---
DATE OF ADMISSION: 05/25/2019 DATE OF DISCHARGE: 05/26/2019 DISCHARGE DISPOSITION: Left against medical advice. DISCHARGE DIAGNOSES: 1. Hyponatremia. 2. Hypokalemia. 3. Chest pain. 4. History of coronary artery disease. 5. Chronic diastolic heart failure. 6. History of systemic lupus. DISCHARGE MEDICATIONS: Assume that he is going to continue his home medications including 1. Metoprolol 25 mg twice daily. 2. Flomax 0.4 mg daily. 3. Prednisone 15 mg daily. 4. Lasix 20 mg daily. 5. Soma 350 mg twice daily. 6. Atorvastatin 20 mg daily. 7. Aspirin 325 mg 1/2 tablet every 3 days. 8. Xanax 0.5 mg daily. CODE STATUS: Full code. ALLERGIES: . HOSPITAL COURSE: Mr. Medina is a 58-year-old gentleman, whom I did not have the pleasure of seeing during this hospital stay as he left against medical advice. He was admitted due to generalized weakness and poor appetite. He was evaluated in the ER and found to be hyponatremic as well as hypokalemic. Efforts were made to replace his potassium as well as correct his sodium. Nephrology was consulted as well to help with this. However, the patient left against medical advice before any further treatment could be initiated and it is unclear why he left, but he left before I could evaluate him and follow. Job ID: [id number]
--- NOTE | 2019-05-27 12:55 | EKG ---
Test Reason : Blood Pressure : / mmHG Vent. Rate : 102 BPM Atrial Rate : 102 BPM P-R Int : 162 ms QRS Dur : 110 ms QT Int : 422 ms P-R-T Axes : 023 039 -09 degrees QTc Int : 550 ms Sinus tachycardia Possible Left atrial enlargement Prolonged QT Abnormal ECG Confirmed by SARATH GARZA, KO ([id number]), photo editor TOYIN PLUNKETT ([id number]) on 05/27/2019 12:55:06 PM Referred By: Confirmed By:KO CLEMENS MD
== END 2019-05-26 11:24 | disposition left against medical advice (07) | DRG 683 ==
LOC: ERS 10:53 → 2NO 14:21
PROVIDERS: ADMIT Internal Medicine; ATTEND Internal Medicine
DX: N17.9 Acute kidney failure, unspecified (principal); E87.1 Hypo-osmolality and hyponatremia; E27.40 Unspecified adrenocortical insufficiency; I50.32 Chronic diastolic (congestive) heart failure; I13.0 Hypertensive heart and chronic kidney disease with heart failure and stage 1 through stage 4 chronic kidney disease, or unspecified chronic kidney disease; J32.8 Other chronic sinusitis; I25.10 Atherosclerotic heart disease of native coronary artery without angina pectoris; E78.5 Hyperlipidemia, unspecified; M19.90 Unspecified osteoarthritis, unspecified site; F17.200 Nicotine dependence, unspecified, uncomplicated; E87.6 Hypokalemia; E87.8 Other disorders of electrolyte and fluid balance, not elsewhere classified; M32.9 Systemic lupus erythematosus, unspecified; I95.9 Hypotension, unspecified; E86.9 Volume depletion, unspecified; Z79.899 Other long term (current) drug therapy; Z79.52 Long term (current) use of systemic steroids; Z88.1 Allergy status to other antibiotic agents; I25.2 Old myocardial infarction
CPT/HCPCS: 36415; 80048; 83735; 83880; 84100; 85025; 93005; 93306; 94760; J1644; J3480; J7512

== ENCOUNTER 2019-08-08 10:11 | Emergency (ER) | payer OTHER ==
[2019-08-08] MEDS ORDERED: diphenhydrAMINE 50 MG/ML VIAL ONE (11:07)
[2019-08-08] MEDS ORDERED: Ketorolac Tromethamine 30 MG/ML VIAL ONE (11:07)
[2019-08-08] MEDS ORDERED: Acetaminophen 500 MG TAB ONE (11:07)
[2019-08-08] MEDS ORDERED: Metoclopramide HCl 10 MG/2 ML VIAL ONE (11:07)
[2019-08-08] MEDS ORDERED: cefTRIAXone\\ROCEPHIN 2 GM VIAL ONE (11:07)
[2019-08-08 11:43] LABS: #Eosinphils 0.1 thou/uL (0.0-0.7); #Lymphocytes 1.5 thou/uL (1.20-3.40); #Monocytes 1.3 thou/uL (0.11-0.59); #Neutrophils 10.5 thou/uL (1.40-6.50); %Basophils 0.1 % (0.0-1.0); %Eosinophils 0.5 % (0.0-10.0); %Lymphocytes 11.2 % (21.0-51.0); %Monocytes 9.7 % (0.0-10.0); %Neutrophils 78.5 % (42.0-75.0); Hemoglobin 12.2 g/dL (14.0-18.0); Mean Corpuscular HGB CONC 33.1 g/dL (32.0-36.0); Mean Corpuscular Hemoglobin 24.4 pg (27.0-31.0); Mean Corpuscular Volume 73.8 fL (78.0-98.0); Mean Platelet Volume 6.6 fL (7.4-10.4); Platelet Count 335 thou/uL (130-400); RBC Distribution Width 15.7 % (11.5-14.5); Red Blood Cell (RBC) Count 5.01 mill/uL (4.70-6.10); White Blood Cell (WBC) Count 13.4 thou/uL (4.8-10.8)
[2019-08-08 12:06] LABS: ALT (SGPT) 21 U/L (8-55); AST (SGOT) 11 U/L (5-34); Albumin 3.8 g/dL (3.5-5.0); Alkaline Phosphatase 66 U/L (40-150); Anion Gap 13 mmol/L (10-20); BUN (Urea Nitrogen) 20 mg/dL (8.4-25.7); Bilirubin, Total 0.4 mg/dL (0.2-1.2); Calc. Creatinine Clearance 0 mL/min (70-130); Calcium 9.1 mg/dL (7.8-10.44); Carbon Dioxide 32 mmol/L (22-29); Chloride 76 mmol/L (98-107); Estimated GFR-MDRD 60; Globulin 2.7 g/dL (2.4-3.5); Glucose 91 mg/dL (70-105); Protein, Total 6.5 g/dL (6.0-8.3)
[2019-08-08 12:15] LABS: Potassium 2.2 mmol/L (3.5-5.1); Sodium 119 mmol/L (136-145)
[2019-08-08] MEDS ORDERED: Potassium Chloride 20 MEQ TAB ONE (13:21)
== END 2019-08-08 13:27 | disposition home or self-care (01) ==
LOC: ERS 10:11
DX: R51 Headache (principal); E87.6 Hypokalemia; R79.89 Other specified abnormal findings of blood chemistry; N18.6 End stage renal disease; E78.5 Hyperlipidemia, unspecified; E78.00 Pure hypercholesterolemia, unspecified; I13.2 Hypertensive heart and chronic kidney disease with heart failure and with stage 5 chronic kidney disease, or end stage renal disease; I50.9 Heart failure, unspecified; I25.10 Atherosclerotic heart disease of native coronary artery without angina pectoris; I25.2 Old myocardial infarction; F17.210 Nicotine dependence, cigarettes, uncomplicated; F41.9 Anxiety disorder, unspecified; Z79.899 Other long term (current) drug therapy
CPT/HCPCS: 36415; 80053; 83605; 85025; 96361; 96365; 96367; 96375; J0696; J1200; J1885; J2765

== ENCOUNTER 2019-08-22 10:32 | Inpatient (IN) | payer OTHER ==
[2019-08-22 11:12] LABS: #Eosinphils 0.1 thou/uL (0.0-0.7); #Lymphocytes 1.9 thou/uL (1.20-3.40); #Monocytes 0.9 thou/uL (0.11-0.59); #Neutrophils 8.9 thou/uL (1.40-6.50); %Basophils 0.4 % (0.0-1.0); %Eosinophils 0.6 % (0.0-10.0); %Lymphocytes 15.9 % (21.0-51.0); %Monocytes 7.9 % (0.0-10.0); %Neutrophils 75.3 % (42.0-75.0); Hemoglobin 12.7 g/dL (14.0-18.0); Mean Corpuscular HGB CONC 33.5 g/dL (32.0-36.0); Mean Corpuscular Hemoglobin 24.9 pg (27.0-31.0); Mean Corpuscular Volume 74.4 fL (78.0-98.0); Mean Platelet Volume 6.5 fL (7.4-10.4); Platelet Count 328 thou/uL (130-400); RBC Distribution Width 16.5 % (11.5-14.5); Red Blood Cell (RBC) Count 5.08 mill/uL (4.70-6.10); White Blood Cell (WBC) Count 11.8 thou/uL (4.8-10.8)
[2019-08-22] MEDS ORDERED: Lorazepam 1 MG TAB ONE (11:19)
[2019-08-22] MEDS ORDERED: Lorazepam 2 MG/ML VIAL ONE (11:24)
[2019-08-22 11:34] LABS: ALT (SGPT) 33 U/L (8-55); AST (SGOT) 19 U/L (5-34); Albumin 3.9 g/dL (3.5-5.0); Alkaline Phosphatase 66 U/L (40-150); Anion Gap 16 mmol/L (10-20); BUN (Urea Nitrogen) 16 mg/dL (8.4-25.7); Bilirubin, Total 0.3 mg/dL (0.2-1.2); Calc. Creatinine Clearance 0 mL/min (70-130); Calcium 9.5 mg/dL (7.8-10.44); Carbon Dioxide 28 mmol/L (22-29); Chloride 75 mmol/L (98-107); Estimated GFR-MDRD 67; Globulin 3.3 g/dL (2.4-3.5); Glucose 106 mg/dL (70-105); Lipase 65 U/L (8-78); Potassium 3.1 mmol/L (3.5-5.1); Protein, Total 7.2 g/dL (6.0-8.3)
--- NOTE | 2019-08-22 11:34 | RAD ---
CHEST ONE VIEW: HISTORY: Possible sepsis. Elevated lactic acid. Muscle cramping. COMPARISON: 08/20/2019 FINDINGS: Healed bilateral rib fractures. Postop midline sternotomy. No confluent pneumonia, overt edema or p leural effusion. IMPRESSION: 1. Healed rib fractures. 2. Postoperative midline sternotomy. 3. No significant pneumonia or other new process. POS: OFF
[2019-08-22 11:37] LABS: Sodium 116 mmol/L (136-145)
[2019-08-22] MEDS ORDERED: Sodium Chloride 3% 100 ML IVPB SCH (12:15)
[2019-08-22] MEDS ORDERED: Potassium Chloride 20 MEQ TAB PO SCH ×3 (12:30→23:00)
[2019-08-22] MEDS ORDERED: Potassium Chloride 40 MEQ in Premix Bag 1 BAG IVPB SCH (12:30)
[2019-08-22 12:53] LABS: Bacteria/HPF None Seen HPF (None Seen); Bilirubin Negative (Negative); Blood, Urine 1+ (Negative); Clarity Clear (Clear); Glucose, Urine (Dipstick) Normal (Negative); Leukocyte Negative Leu/uL (Negative); Nitrite Negative (Negative); Protein, Urine (Dipstick) Negative (Neg-Trace); Squamous Epithelial 0-3 HPF (0-3); Urobilinogen Normal mg/dL (Less than 2); WBC/HPF None Seen HPF (0-3)
[2019-08-22] MEDS ORDERED: Potassium Chloride 40 MEQ in Sodium Chloride 0.9% 250 ML 250 ML IVPB SCH (13:00)
[2019-08-22 15:52] LABS: Lactic Acid 3.3 mmol/L (0.5-2.2)
[2019-08-22 16:09] VITALS: BMI 32.1
[2019-08-22] MEDS ORDERED: Ondansetron ODT 4 MG TAB PO PRN (16:23)
[2019-08-22] MEDS ORDERED: hydrALAZINE 20 MG/ML VIAL SLOW IVP PRN (16:23)
[2019-08-22] MEDS ORDERED: Acetaminophen 500 MG TAB PO PRN (16:23)
[2019-08-22] MEDS ORDERED: Ondansetron PF 4 MG/2 ML Vial IVP PRN (16:23)
[2019-08-22] MEDS ORDERED: Aspirin 325 MG TAB PO SCH (16:30)
[2019-08-22 19:30] LABS: Sodium 119 mmol/L (136-145)
[2019-08-22 19:36] LABS: Anion Gap 15 mmol/L (10-20); BUN (Urea Nitrogen) 15 mg/dL (8.4-25.7); Calc. Creatinine Clearance 115 mL/min (70-130); Calcium 8.9 mg/dL (7.8-10.44); Carbon Dioxide 27 mmol/L (22-29); Chloride 81 mmol/L (98-107); Estimated GFR-MDRD 69; Glucose 168 mg/dL (70-105); Sodium 120 mmol/L (136-145)
[2019-08-22] MEDS ORDERED: Metoprolol Tartrate 25 MG TAB PO SCH (21:00)
[2019-08-22] MEDS ORDERED: Famotidine 20 MG TAB PO SCH (21:00)
[2019-08-22] MEDS ORDERED: Fludrocortisone Acetate 0.1 MG TAB PO SCH (21:00)
[2019-08-22] MEDS: Cyclobenzaprine 10 MG TAB PO SCH ×2 (21:09→23:05)
[2019-08-22 22:51] LABS: Anion Gap 15 mmol/L (10-20); BUN (Urea Nitrogen) 16 mg/dL (8.4-25.7); Calc. Creatinine Clearance 119 mL/min (70-130); Calcium 8.8 mg/dL (7.8-10.44); Carbon Dioxide 25 mmol/L (22-29); Chloride 83 mmol/L (98-107); Estimated GFR-MDRD 72; Glucose 140 mg/dL (70-105); Potassium 3.2 mmol/L (3.5-5.1); Sodium 120 mmol/L (136-145)
[2019-08-22] MEDS ORDERED: Cyclobenzaprine 10 MG TAB PO SCH (23:00)
--- NOTE | 2019-08-22 23:12 | HP ---
PRIMARY CARE PROVIDER: Dr. Jin Maier. PRIMARY EDGER HAND: Saleem Tamayo MD CHIEF COMPLAINT: Abnormal labs. HISTORY OF PRESENT ILLNESS: This is a 58-year-old male, who presents to [facility] Emergency Department after several lab abnormalities were noted. The patient with recent CBC showing a bandemia in addition to an elevated lactic acid level of 2.9 on 08/20/2019. The patient had been complaining of general weakness, body aches, and muscle cramping since 08/19/2019. The patient apparently was followed by his primary care provider reporting the elevated lactic acid level from of lab draw on 08/20/2019 as stated previously. The patient admits to some difficulty walking, lower and upper extremity muscle cramps with shortness of breath. The patient denied any specific fever, chills, travel history, family members with similar symptoms or recent trauma. The patient admitted the pain rated 6/10, was cramping in nature involving his lower extremities. The patient did take a prescription muscle relaxer with mild relief of his symptoms. The patient also reported taking increased doses of metolazone due to lower extremity swelling. The patient denied any nausea, vomiting or diarrhea. In the emergency room, the patient underwent evaluation including metabolic screening showing a sodium level of 116 with a history of hyponatremia. The patient was also noted with lactic acid level ranging between 2.6 to 3.3. The patient received intravenous normal saline 500 mL in addition to Ativan 1 mg IV push. Due to the patient's hyponatremia and associated symptoms, the patient was referred to the Hospitalist Service for further evaluation. PAST MEDICAL HISTORY: 1. Recurrent hyponatremia. 2. Hypokalemia. 3. Coronary artery disease. 4. History of systemic lupus. 5. Chronic steroid therapy. 6. Adrenal insufficiency. 7. Benign prostatic hyperplasia. 8. Chronic immunosuppression. 9. Chronic kidney disease. 10. Chronic sinusitis. 11. Dyslipidemia. 12. Tobacco abuse. 13. Osteoarthritis. PAST SURGICAL HISTORY: 1. Status post back surgery in 2018. 2. Status post appendectomy. 3. Status post AAA repair in 2016 with repeat in March of 2017. 4. Status post left total hip arthroplasty. 5. Status post hernia repair. 6. Status post sinus surgery. 7. Status post cardiac catheterization. 8. Status post EGD. 9. Status post cardiac stent placement. CURRENT MEDICATIONS: 1. Lipitor 20 mg p.o. daily. 2. Lasix 20 mg p.o. daily. 3. Potassium chloride 20 mEq p.o. b.i.d. 4. Alprazolam 0.5 mg p.o. daily. 5. Enteric-coated aspirin 325 mg half a tablet p.o. q.3 days. 6. Carisoprodol 350 mg p.o. b.i.d. 7. Fluconazole 200 mg p.o. daily. 8. Florinef 0.1 mg p.o. b.i.d. 9. Lisinopril 40 mg p.o. daily. 10. Metoprolol tartrate 25 mg p.o. b.i.d. 11. Prednisone 15 mg p.o. daily. 12. Tamsulosin 0.4 mg p.o. daily. 13. Verapamil SR 120 mg p.o. daily. ALLERGIES: 1. MOXIFLOXACIN. 2. IODINE. FAMILY HISTORY: No inheritable disease per the patient's report. SOCIAL HISTORY: He smokes up to half a pack of cigarettes daily. No alcohol or illicit drug use. . REVIEW OF SYSTEMS: CONSTITUTIONAL: Negative for weight loss or gain, ability to conduct usual activities. SKIN: Negative for rash, itching. EYES: Negative for double vision, pain. ENT/MOUTH: Negative for nose bleeding, neck stiffness, pain, tenderness. CARDIOVASCULAR: Negative for palpitations, dyspnea on exertion, orthopnea. RESPIRATORY: Negative for shortness of breath, wheezing, cough, hemoptysis, fever or night sweats. GASTROINTESTINAL: Negative for poor appetite, abdominal pain, heartburn, nausea, vomiting, constipation, or diarrhea. GENITOURINARY: Negative for urgency, frequency, dysuria, nocturia. MUSCULOSKELETAL: Negative for pain, swelling. NEUROLOGIC/PSYCHIATRIC: Negative for anxiety, depression. ALLERGY/IMMUNOLOGIC: Negative for skin rash, bleeding tendency. Otherwise negative except as stated per HPI. PHYSICAL EXAMINATION: VITAL SIGNS: On admission; blood pressure 137/91, pulse 90, respiratory rate 22, temperature 97.3 degrees Fahrenheit, and O2 saturation 95% on room air. GENERAL APPEARANCE: This is a 58-year-old male, alert and oriented x3, pleasant, in no acute distress. HEENT: Pupils are equal, round, reactive to light and accommodation. Extraocular muscles are intact. No scleral icterus. No conjunctival injection. Nares patent. OP is clear. Teeth in fair repair. NECK: Supple. No cervical adenopathy. No thyromegaly. No carotid bruits. No JVD appreciated. Cervical spine with full active and passive range of motion. No meningeal signs noted. CHEST: Diminished breath sounds in the bases bilaterally. Occasional expiratory wheeze. CARDIOVASCULAR: S1 and S2 without noted murmur, rub or gallop. ABDOMEN: Obese, soft, nontender, and nondistended. Bowel sounds are positive in all 4 quadrants. There is no hepatosplenomegaly. No abdominal bruits. No rebound or guarding appreciated. EXTREMITIES: Warm and dry with fair turgor. Bilateral pitting edema to the proximal shins. Pulses are palpable distally at the dorsalis pedis, posterior tibial, and popliteal arteries bilaterally. Capillary refill is less than 2 seconds. NEUROLOGIC: Cranial nerves 2 through 12 are grossly intact. No focal or lateralizing signs appreciated. PERTINENT LAB AND X-RAY FINDINGS: Sodium 116, potassium 3.1, chloride 75, CO2 of 28, anion gap of 16, BUN 16, creatinine 1.13, estimated GFR of 67, and glucose 106. Serum osmolality 246, lactic acid level 2.6, and calcium 9.5. LFTs within normal limits. Total CK of 19, BNP 37, and lipase 65. CBC showed a white blood cell count of 11.8, hemoglobin 13, hematocrit 38, MCV 74, and platelet count 328 with 75% neutrophils. Portable chest x-ray dated 08/22/2019 by my interpretation shows no acute cardiopulmonary process. EKG dated 08/22/2019 by my interpretation shows question of atrial flutter versus baseline artifact. Heart rates in the 80s. Normal R-wave progression noted in the precordial leads. Normal axis. No acute ST-T wave changes noted. ASSESSMENT/PLAN: 1. Hyponatremia. Acute/subacute. We will place on 1 L per 24-hour fluid restriction. Serial sodium monitoring q.6 hours. Consult Nephrology service for assistance and management. Suspect secondary to volume overload. 2. Hypokalemia. Continue potassium supplementation with K-Dur 40 mEq p.o. b.i.d. Repeat potassium level in the a.m. 3. Lactic acidosis. Suspect no focal signs of infectious process currently. Suspect metabolic in nature. Repeat lactic acid level in the a.m. 4. Generalized weakness with muscle cramps. Suspect secondarily to hyponatremia and hypokalemia. Replace electrolytes as stated previously and monitor for clinical resolution. 5. Chronic adrenal insufficiency. Resume fludrocortisone 0.1 mg b.i.d. 6. Prophylaxis. SCDs while in bed. Pepcid 20 mg p.o. b.i.d. Walking program for functional assessment. 7. Code status is full. Surrogate medical decision maker is the patient's spouse. Job ID: [id number]
--- NOTE | 2019-08-23 00:25 | CON ---
DATE OF CONSULTATION: REASON FOR CONSULTATION: Hyponatremia. HISTORY: Mr. Medina is a 58-year-old gentleman, who presented to the hospital for hyponatremia. The patient was noted to have a sodium of 116. The patient had cramps and weakness. The patient denies any nausea, vomiting or chest pain. PAST MEDICAL HISTORY: Hypertension, history of atrophic left kidney, history of anemia, history of osteoarthritis, history of hyponatremia, history of adrenal insufficiency, history of chronic sinusitis, congestive heart failure, hypertension, coronary artery disease, myocardial infarction, cataract surgery, appendectomy, AAA repaired, multiple history of left hip replacement, history of cardiac cath, history of CABG, history of stent placement, and history of abdominal aortic stent. SOCIAL HISTORY: No alcohol or drug use. FAMILY HISTORY: Negative for ESRD. ALLERGIES: REVIEWED. MEDICATIONS: Home medications list reviewed. Hospital medication list reviewed. REVIEW OF SYSTEMS: 15-point review of system was performed, negative except for positives noted above. REVIEW OF SYSTEMS: A 12-point review of systems was performed and was negative except for positives noted above. GENERAL: HEAD: NECK: No swelling or lumps. NOSE: No epistaxis or discharge. EYES: No diplopia or pain. 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 NEUROPSYCHIATIC SYSTEMS: No suicidal ideation. No ideation. SKIN: Denies any rash or ulcer. CONSTITUTIONAL: No fever or chills. PHYSICAL EXAMINATION: See above. CONSTITUTIONAL: The patient is awake and alert. VITAL SIGNS: Pulse 93, breathing 16, and blood pressure 137/83. GENERAL APPEARANCE AND MENTAL STATUS: Fair. HEAD/NECK: Normocephalic. Atraumatic. EYES: EOMI. No deformity. EARS: Clear. No ulcers. NOSE: Intact. No lesions. MOUTH: Clear. No discharge. THROAT: Clear. No exudate. LUNGS: Clear. No crackles. CARDIAC: S1, S2. No rub. ABDOMEN: Benign. Bowel sounds positive. GENITALIA/RECTUM: [place] absent. BACK/EXTREMITIES: Edema 0+. NEUROLOGICAL: Alert and motor intact. SKIN: LYMPHATICS: LABORATORY DATA: Reviewed. ASSESSMENT AND PLAN: Chronic kidney disease, stage 2, stable; hypertension, stable; hyponatremia. We would recommend fluid restriction, recheck sodium every 4 hours. Home medication based on GFR appropriate. Job ID: [id number]
[2019-08-23 04:30] VITALS: TEMP 98.9
[2019-08-23 07:16] LABS: Hemoglobin 11.8 g/dL (14.0-18.0); Mean Corpuscular Hemoglobin 25.2 pg (27.0-31.0); Mean Corpuscular Volume 76.3 fL (78.0-98.0); Mean Platelet Volume 6.6 fL (7.4-10.4); Platelet Count 291 thou/uL (130-400); RBC Distribution Width 16.3 % (11.5-14.5); Red Blood Cell (RBC) Count 4.67 mill/uL (4.70-6.10)
[2019-08-23 07:42] LABS: Anion Gap 12 mmol/L (10-20); BUN (Urea Nitrogen) 15 mg/dL (8.4-25.7); Calc. Creatinine Clearance 131 mL/min (70-130); Carbon Dioxide 26 mmol/L (22-29); Chloride 87 mmol/L (98-107); Estimated GFR-MDRD 81; Glucose 103 mg/dL (70-105); Potassium 3.5 mmol/L (3.5-5.1); Sodium 121 mmol/L (136-145)
[2019-08-23] MEDS ORDERED: predniSONE 5 MG TAB PO SCH (08:00)
[2019-08-23] MEDS ORDERED: Fluconazole 100 MG TAB PO SCH (09:00)
[2019-08-23] MEDS ORDERED: Tamsulosin HCl 0.4 MG CAP PO SCH (09:00)
[2019-08-23] MEDS ORDERED: ALPRAZolam 0.5 MG TAB PO SCH (09:00)
[2019-08-23] MEDS ORDERED: Lisinopril 20 MG TAB PO SCH (09:00)
[2019-08-23 09:04] LABS: Eosinophils 1 % (0-10); Lymphocytes 19 % (21-51); MDiff Complete? YES; Microcytosis SLIGHT = 6-15 cells (100X) (0-5/hpf); Monocytes 9 % (0-10); Neutrophil 71 % (42-75); Polychromasia SLIGHT = 2-3 cells (100X) (0-2/hpf)
--- NOTE | 2019-08-24 02:11 | DIS ---
DATE OF ADMISSION: 08/22/2019 DATE OF DISCHARGE: 08/23/2019 DISCHARGE DIAGNOSES: 1. Acute/subacute hyponatremia, likely secondary to syndrome of inappropriate antidiuretic hormone secretion. 2. Hypokalemia. 3. Lactic acidosis. 4. Generalized weakness with muscle cramps. 5. Chronic adrenal insufficiency. 6. Chronic kidney disease, stage 2. CONSULTATIONS: Dr. Tamayo with Nephrology Service. PERTINENT LABORATORY AND X-RAY FINDINGS: Sodium ranged between 116 to 121, potassium ranged between 3.0 to 3.5, and creatinine ranged between 0.95 to 1.13. Estimated GFR ranged between 67 to 81. Lactic acid level ranged between 2.6 to 3.3. Magnesium level 2.7, calcium 9.5, total CK 19, BNP 37, albumin 3.9, and lipase 65. CBC showed a white blood cell count ranged between 8.0 to 11.8 and hemoglobin ranged between 11.8 to 12.7. Blood cultures x2 dated 08/22/2019 showed no growth to date. Portable chest x-ray dated 08/22/2019 showed no acute cardiopulmonary process. HOSPITAL COURSE: The patient was initially admitted to the intermediate care unit after presenting with generalized muscle cramping and severe hyponatremia. The patient with recurrent hyponatremia, likely secondary to SIADH. The patient was placed on a fluid restriction with serial sodium monitoring. Overall trend had improved with fluid restriction; however, the patient did not want to continue fluid restriction or remain in the hospital on 08/23/2019. The patient abruptly stated he would like to leave against medical advice and called his to pick him up. No further treatment was given and the patient left against medical advice on 08/23/2019. Job ID: [id number]
== END 2019-08-23 09:30 | disposition left against medical advice (07) | DRG 644 ==
LOC: ERS 10:32 → IMCU/EMU 16:03
PROVIDERS: ADMIT Family Medicine; ATTEND Family Medicine
DX: E22.2 Syndrome of inappropriate secretion of antidiuretic hormone (principal); E27.40 Unspecified adrenocortical insufficiency; E87.2 Acidosis; I13.0 Hypertensive heart and chronic kidney disease with heart failure and stage 1 through stage 4 chronic kidney disease, or unspecified chronic kidney disease; E87.6 Hypokalemia; I25.10 Atherosclerotic heart disease of native coronary artery without angina pectoris; M32.9 Systemic lupus erythematosus, unspecified; N40.0 Benign prostatic hyperplasia without lower urinary tract symptoms; J32.9 Chronic sinusitis, unspecified; E78.5 Hyperlipidemia, unspecified; F17.210 Nicotine dependence, cigarettes, uncomplicated; M19.90 Unspecified osteoarthritis, unspecified site; E78.00 Pure hypercholesterolemia, unspecified; F41.9 Anxiety disorder, unspecified; I50.9 Heart failure, unspecified; Z96.642 Presence of left artificial hip joint; N18.2 Chronic kidney disease, stage 2 (mild); Z53.21 Procedure and treatment not carried out due to patient leaving prior to being seen by health care provider; Z79.82 Long term (current) use of aspirin; Z95.1 Presence of aortocoronary bypass graft; Z79.52 Long term (current) use of systemic steroids; Z79.899 Other long term (current) drug therapy; Z88.1 Allergy status to other antibiotic agents; Z88.8 Allergy status to other drugs, medicaments and biological substances; I25.2 Old myocardial infarction; Z90.49 Acquired absence of other specified parts of digestive tract
CPT/HCPCS: 36415; 71045; 80053; 81003; 81015; 82550; 83605; 83690; 83735; 83880; 83930; 83935; 84300; 84484; 85007; 85025; 85027; 87040; 93005; 93010; 96361; 96374; J2060; J3480; J7050; J7131

== ENCOUNTER 2019-09-24 20:52 | Inpatient (IN) | payer OTHER ==
--- NOTE | 2019-09-24 21:21 | RAD ---
Exam: Chest one view HISTORY:Fever Comparison: 09/10/2019 FINDINGS: Cardiac silhouette:Stable cardiomegaly. Stable sternotomy wires. Aorta: Unremarkable Pulmonary vessels: Normal Costophrenic angles: Clear LUNGS: No masses or consolidation. Pneumothorax: None Osseous abnormalities: None IMPRESSION: No acute cardiopulmonary process.
[2019-09-24] MEDS ORDERED: Piperacillin/Tazobactam 4.5 GM VIAL ONE (21:22)
[2019-09-24] MEDS ORDERED: Vancomycin HCl 1.5 GM in Sodium Chloride 0.9% 250 ML 300 ML IVPB SCH (21:30)
[2019-09-24 21:46] LABS: Hemoglobin 12.1 g/dL (14.0-18.0); Mean Corpuscular HGB CONC 32.8 g/dL (32.0-36.0); Mean Corpuscular Hemoglobin 25.8 pg (27.0-31.0); Mean Corpuscular Volume 78.4 fL (78.0-98.0); RBC Distribution Width 16.9 % (11.5-14.5)
[2019-09-24 21:57] LABS: Band 11 % (5-11); Eosinophils 1 % (0-10); Lymphocytes 5 % (21-51); MDiff Complete? YES; Mean Platelet Volume 7.2 fL (7.4-10.4); Monocytes 4 % (0-10); Neutrophil 79 % (42-75); Platelet Count 273 thou/uL (130-400); White Blood Cell (WBC) Count 12.8 thou/uL (4.8-10.8)
[2019-09-24 22:00] LABS: ALT (SGPT) 17 U/L (8-55); AST (SGOT) 17 U/L (5-34); Albumin 3.1 g/dL (3.5-5.0); Alkaline Phosphatase 91 U/L (40-110); Anion Gap 21 mmol/L (10-20); BUN (Urea Nitrogen) 66 mg/dL (8.4-25.7); Bilirubin, Total 0.4 mg/dL (0.2-1.2); CK (CPK) 121 U/L (30-200); Calc. Creatinine Clearance 0 mL/min (70-130); Calcium 8.5 mg/dL (7.8-10.44); Carbon Dioxide 26 mmol/L (22-29); Estimated GFR-MDRD 9; Globulin 2.9 g/dL (2.4-3.5); Glucose 114 mg/dL (70-105); Lipase 26 U/L (8-78)
[2019-09-24 22:07] LABS: Chloride 74 mmol/L (98-107); Potassium 2.3 mmol/L (3.5-5.1); Sodium 119 mmol/L (136-145)
[2019-09-24 22:22] LABS: CKMB 4.4 ng/mL (0-6.6)
[2019-09-24] MEDS ORDERED: NS 0.9% w/ 40 MEQ KCL 1,000 ML IV SCH (22:30)
[2019-09-24 22:58] LABS: INR-International Normal Ratio 1.1; PTT 32.5 SEC (22.9-36.1); Prothrombin Time 13.7 SEC (12.0-14.7)
[2019-09-24 23:04] LABS: Magnesium 2.7 mg/dL (1.6-2.6)
[2019-09-24 23:08] LABS: Phosphorus 10.4 mg/dL (2.3-4.7)
[2019-09-24 23:19] LABS: Bilirubin Negative (Negative); Blood, Urine Negative (Negative); Clarity Clear (Clear); Glucose, Urine (Dipstick) Normal (Negative); Leukocyte Negative Leu/uL (Negative); Nitrite Negative (Negative); Protein, Urine (Dipstick) 10 mg/dL (Neg-Trace); Urobilinogen Normal mg/dL (Less than 2)
--- NOTE | 2019-09-24 23:51 | CT ---
ABDOMEN CT WITHOUT CONTRAST PELVIC CT WITHOUT CONTRAST 09/24/19 COMPARISON: 04/04/17 CORRELATION: Aortic dissection protocol 02/18/19. HISTORY: Acute kidney insufficiency. Left flank pain. FINDINGS: ABDOMEN CT: Dependent atelectatic changes. Normal heart size. No significant pericardial fluid. Stent at the celiac artery origin is noted. There is an endovascular stent involving the suprarenal and infrarenal abdominal aorta. The stent extends into the limbs of the left and right common iliac a rtery. There is also a vascular stent in the left renal artery. Noncontrast images demonstrate linear densities slightly lateral to the stents. These densities appear to be in the excluded lumen and may represent partially calcified thrombus. When compared to the prior examination, the aneurysm has not appreciably changed in size and measures 6.1 cm mediolateral x 5.5 cm craniocaudal. No significant p eriaortic fat stranding. Limited evaluation of the solid organs due to lack of IV contrast. Grossly, no solid organ abnormalit y. Unremarkable gallbladder. No gastrohepatic, retrocrural or periportal lymphadenopathy. No mesenteric mass, lymphadenopathy, [place] e air or free fluid. Limited evaluation of the alimentary canal due to lack of oral contrast administ ration. Normal caliber small bowel loops. Unremarkable ileocecal junction. Appendix appears to be ana maria gically absent. Scattered fecal material in a nondistended, nondilated colon. There are diverticulum. No diverticulitis. There is atrophy of the left kidney which has developed since the previous exam. No evidence of left sided obstructive uropathy. There is no evidence of right sided hydronephrosis, n ephrolithiasis, or perinephric fat stranding. The right ureter has a normal caliber. No hydroureter, periureteral fat stranding or ureterolithiasis. CT PELVIS: No mass, lymphadenopathy, free air or free fluid. Urinary bladder is unremarkable. No lytic or blastic lesions in the osseous structures. IMPRESSION: Interval atrophy of the left kidney. No evidence of obstructive uropathy. Redemonstration of an endov ascular stent involving the abdominal aorta. Correlation made with a CT angiogram from 01/29/19 does no t demonstrate any appreciable change. On that exam, the aorta measured 6.0 x 5.4 cm. The aforementio jessica hyperdensity is also noted. POS: [facility]
[2019-09-25 01:34] VITALS: BMI 30.4
[2019-09-25] MEDS ORDERED: Meclizine HCl 25 MG TAB PO PRN (02:04)
[2019-09-25 02:15] LABS: Anion Gap 23 mmol/L (10-20); BUN (Urea Nitrogen) 63 mg/dL (8.4-25.7); Calc. Creatinine Clearance 22 mL/min (70-130); Calcium 7.6 mg/dL (7.8-10.44); Carbon Dioxide 19 mmol/L (22-29); Chloride 86 mmol/L (98-107); Estimated GFR-MDRD 11; Glucose 99 mg/dL (70-105); Sodium 125 mmol/L (136-145)
[2019-09-25 02:18] LABS: Potassium 2.6 mmol/L (3.5-5.1)
[2019-09-25 02:35] LABS: CKMB 5.3 ng/mL (0-6.6)
[2019-09-25] MEDS: Cyclobenzaprine 10 MG TAB PO PRN (02:53)
[2019-09-25] MEDS: traMADol HCl 50 MG TAB PO PRN (02:53)
[2019-09-25] MEDS ORDERED: Piperacillin/Tazobactam 4.5 GM in Sodium Chloride 0.9% 100 ML IVPB SCH (03:00)
[2019-09-25] MEDS: Potassium Chloride 40 MEQ in Dextrose 5% in Water 1,000 ML IV SCH ×2 (03:34→12:01)
[2019-09-25] MEDS ORDERED: Fentanyl 100 MCG/2 ML VIAL SLOW IVP SCH (03:45)
[2019-09-25] MEDS ORDERED: Calcium Carbonate 500 MG ChewTAB PO PRN (03:55)
[2019-09-25 04:06] LABS: Lactic Acid 2.8 mmol/L (0.5-2.2)
--- NOTE | 2019-09-25 04:28 | HP ---
PRIMARY CARE PHYSICIAN: Dr. Jin Maier. CHIEF COMPLAINT: Generalized weakness. HISTORY OF PRESENT ILLNESS: The patient is a 58-year-old male with chronic hyponatremia, presented to the emergency room with above complaints. The patient was admitted last month at this facility for generalized weakness secondary to hyponatremia. His sodium on discharge was 121. Diuretics were discontinued. The patient however developed bilateral lower extremity swelling for which he restarted the Lasix. He has been feeling generally weak and fatigued over the past several days. He also had several falls without any head injury. No loss of consciousness reported. He has discomfort over his hip secondary to the fall. He denies any chest pain, shortness of breath, or palpitations. He had intermittent fever along with chills. He did not record his temperature. He was found to have a sodium of 119 with potassium of 2.3, chloride of 74, creatinine of 6.52 with BUN of 66 in the emergency room. His creatinine 10 days ago was 0.95. PAST MEDICAL HISTORY: 1. Recurrent hyponatremia. 2. Chronic adrenal insufficiency. 3. Recurrent hypokalemia. 4. Coronary artery disease. 5. Systemic lupus erythematosus. 6. Benign prostatic hypertrophy. 7. Chronic steroid use. 8. Chronic kidney disease, stage 2. 9. Chronic pain syndrome. 10. Chronic sinusitis. 11. Tobacco dependence. 12. Degenerative joint disease. 13. Dyslipidemia. PAST SURGICAL HISTORY: 1. Back surgery in 2018. 2. Appendectomy. 3. Abdominal aortic aneurysm repair in 2017. 4. Left total hip arthroplasty. 5. Hernia repair. 6. Sinus surgery. 7. Cardiac catheterization. 8. EGD. 9. Coronary stent placement. ALLERGIES: THE PATIENT IS ALLERGIC TO IODINE AND MOXIFLOXACIN. CURRENT HOME MEDICATIONS: 1. Xanax 0.5 mg daily. 2. Aspirin 162 mg every other day. 3. Soma 350 mg 3 times a day. 4. Fluconazole 200 mg daily. 5. Fludrocortisone 0.1 mg b.i.d. 6. Lasix 20 mg daily. 7. Potassium chloride 20 mEq b.i.d. 8. Prednisone 15 mg daily. 9. Flomax 0.4 mg daily. 10. Lopressor 25 mg b.i.d. 11. Lisinopril 40 mg daily as needed. 12. Meclizine 25 mg four times daily as needed. SOCIAL HISTORY: The patient continues to smoke up to half pack a day. No alcohol or drug use. He is . He is full code. FAMILY HISTORY: Negative for inheritable diseases per patient report. REVIEW OF SYSTEMS: All other review of systems was reviewed and negative. PHYSICAL EXAMINATION: VITAL SIGNS: Temperature 97.7, respirations 26, pulse of 102, blood pressure 91/49, O2 saturation of 91% on room air. His O2 saturation later on was 92% on 3 L nasal cannula. GENERAL: A 58-year-old male in significant pain. HEENT: Head; atraumatic, normocephalic. Sclerae anicteric. Dry mucous membranes. No oral lesion. NECK: Supple. No JVD appreciated. No carotid bruit. LUNGS: Showed bibasilar rales with scattered rhonchi. No wheezing. No accessory muscle use. HEART: S1, S2 present. Regular rate and rhythm. No rubs or gallops. ABDOMEN: Soft, nontender. Bowel sounds present. EXTREMITIES: No edema or calf tenderness. NEUROLOGIC: Grossly nonfocal. Moves all 4 extremities. PSYCHIATRY: Alert, awake, oriented x3. SKIN: Warm and dry. LYMPH NODES: No palpable lymph nodes in the neck. Peripheral vascular radial pulses palpable bilaterally. MUSCULOSKELETAL: No joint swelling or tenderness. LABORATORY FINDINGS: Sodium 119, potassium 2.3, chloride 74, bicarb 26, BUN 66, creatinine 6.52, phosphorus of 10.4, magnesium 2.7. Lactic acid 2.3. Troponin of 0.080. Urinalysis was negative for WBC bacteria. Urine osmolality 282. Urine sodium less than 20. Serum osmolality 274. Chest x-ray by my review was negative for infiltrates. CT scan of the abdomen, renal stone protocol was negative for obstructive uropathy. There is interval atrophy of the left kidney. Aorta measured 6 x 5.4 cm. Gallbladder was unremarkable. EKG by my review showed sinus rhythm with PACs and nonspecific ST-T wave changes. IMPRESSION: 1. Generalized weakness with recurrent falls, multifactorial. 2. Multiple electrolyte abnormalities including hyponatremia, hypokalemia, and hyperphosphatemia. 3. Acute kidney injury on chronic kidney disease stage 2. 4. Dehydration with metabolic acidosis/lactic acidosis. 5. Elevated troponin secondary to demand ischemia/type 2 myocardial infarction. 6. Obesity with BMI of 30.5. 7. Significant hip pain with recurrent falls, rule out fracture. 8. Chronic adrenal insufficiency on prednisone and fludrocortisone. 9. History of systemic lupus erythematosus. 10. Physical deconditioning. 11. Leukocytosis, probably chronic. 12. History of abdominal aortic aneurysm. 13. Ongoing tobacco abuse, the patient was counseled. 14. Coronary artery disease. 15. Dyslipidemia. 16. Anxiety. PLAN: The patient is currently admitted to intermediate care unit. We will replace electrolytes gradually. Empiric antibiotics have been started. We will continue his home medication including fludrocortisone, metoprolol, prednisone, Flomax, and aspirin. P.r.n. pain medications for pain control. Pelvic x-ray in a.m. Nephrology consultation. Monitor labs every 4-6 hours. Recheck troponin in a.m. We will hold lisinopril and Lasix for now. Reduce fluconazole dose due to acute kidney injury. It is unclear why the patient is on fluconazole. Plan of care was discussed with the patient in detail. He stated understanding. Job ID: [id number]
[2019-09-25] MEDS ORDERED: Vancomycin HCl 1.5 GM in Sodium Chloride 0.9% 250 ML 300 ML IVPB SCH (08:00)
[2019-09-25 08:10] LABS: Anion Gap 19 mmol/L (10-20); BUN (Urea Nitrogen) 60 mg/dL (8.4-25.7); Calc. Creatinine Clearance 29 mL/min (70-130); Calcium 7.3 mg/dL (7.8-10.44); Carbon Dioxide 18 mmol/L (22-29); Chloride 89 mmol/L (98-107); Estimated GFR-MDRD 14; Glucose 114 mg/dL (70-105); Sodium 123 mmol/L (136-145)
[2019-09-25 08:13] LABS: Potassium 2.9 mmol/L (3.5-5.1)
[2019-09-25] MEDS ORDERED: Potassium Chloride 20 MEQ TAB PO SCH ×2 (08:45→14:15)
[2019-09-25] MEDS: Aspirin 325 MG TAB PO SCH (09:39)
[2019-09-25] MEDS: Fluconazole 40 mg/ml Oral Suspension PO SCH (09:39)
[2019-09-25] MEDS: Senokot S 8.6-50 MG TAB PO SCH ×2 (09:39→22:06)
[2019-09-25] MEDS: predniSONE 5 MG TAB PO SCH (09:40)
[2019-09-25] MEDS: Fludrocortisone Acetate 0.1 MG TAB PO SCH ×2 (09:40→22:27)
[2019-09-25] MEDS: Metoprolol Tartrate 25 MG TAB PO SCH ×2 (09:40→22:05)
[2019-09-25] MEDS: Acetaminophen 325 MG TAB PO SCH ×3 (09:40→22:04)
[2019-09-25] MEDS: Famotidine 20 MG TAB PO SCH (09:40)
[2019-09-25] MEDS: ALPRAZolam 0.5 MG TAB PO PRN (09:40)
--- NOTE | 2019-09-25 12:24 | CON ---
DATE OF CONSULTATION: REASON FOR CONSULTATION: Elevated creatinine and hypokalemia. HISTORY OF PRESENT ILLNESS: This is a very interesting 58-year-old gentleman with multiple episodes of acute kidney injury, was noted to have hypokalemia and presented to the hospital. This time, his creatinine was elevated to 5.5 with low potassium. His creatinine on admission was 6.5, prior baseline was 0.95. His sodium was noted to be 123 at the time of consultation. The patient has a history of noncompliance and no followup. PAST MEDICAL HISTORY: Significant for hyponatremia, acute kidney injury, adrenal insufficiency, hypokalemia, coronary artery disease, SLE, BPH, chronic steroid use, chronic pain syndrome, chronic sinusitis, tobacco use, back surgery, appendectomy, aneurysm repair, left hip arthroplasty, obesity, cardiac catheterization, EGD. ALLERGIES: REVIEWED. HOME MEDICATIONS: List reviewed. HOSPITAL MEDICATIONS: List reviewed. REVIEW OF SYSTEMS: A 15-point review of systems was performed and was negative except for positives noted above. GENERAL: HEAD: NECK: No swelling or lumps. NOSE: No epistaxis or discharge. EYES: No diplopia or pain. 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 NEUROPSYCHIATIC SYSTEMS: No suicidal ideation. No ideation. SKIN: Denies any rash or ulcer. CONSTITUTIONAL: No fever or chills. PHYSICAL EXAMINATION: CONSTITUTIONAL: The patient is awake and alert. VITAL SIGNS: Afebrile. Pulse 75, breathing 16, blood pressure 106/58. GENERAL APPEARANCE AND MENTAL STATUS: Fair. HEAD/NECK: Normocephalic. Atraumatic. EYES: EOMI. No deformity. EARS: Clear. No ulcers. NOSE: Intact. No lesions. MOUTH: Clear. No discharge. THROAT: Clear. No exudate. LUNGS: Clear. No crackles. CARDIAC: S1, S2. No rub. ABDOMEN: Benign. Bowel sounds positive. GENITALIA/RECTUM: [place] absent. BACK/EXTREMITIES: Edema 0+. NEUROLOGICAL: Alert and motor intact. SKIN: LYMPHATICS: LABORATORY DATA: Reviewed. ASSESSMENT AND PLAN: 1. Acute kidney injury on chronic kidney disease, most likely due to decreased effective arterial blood volume. Continue gentle hydration. 2. Hyponatremia due to renal failure. Make sure that sodium is not corrected more than 6 mEq. 3. Hypokalemia, recommend 40 mEq of potassium. 4. Acute kidney injury, improving. No indication for dialysis. Job ID: [id number]
[2019-09-25 13:01] LABS: Lactic Acid 1.1 mmol/L (0.5-2.2)
[2019-09-25 13:05] LABS: Anion Gap 16 mmol/L (10-20); BUN (Urea Nitrogen) 59 mg/dL (8.4-25.7); Calc. Creatinine Clearance 36 mL/min (70-130); Calcium 7.6 mg/dL (7.8-10.44); Carbon Dioxide 22 mmol/L (22-29); Chloride 88 mmol/L (98-107); Estimated GFR-MDRD 19; Glucose 114 mg/dL (70-105); Sodium 123 mmol/L (136-145)
[2019-09-25 13:12] LABS: Potassium 2.9 mmol/L (3.5-5.1)
[2019-09-25] MEDS: Piperacillin/Tazobactam 2.25 GM in Sodium Chloride 0.9% 100 ML IVPB SCH ×2 (15:37→22:06)
--- NOTE | 2019-09-25 17:06 | RAD ---
PELVIS ONE VIEW LEFT HIP TWO VIEWS History: Fall. Pain. FINDINGS: One view pelvis: Left hip arthroplasty is identified. Circular joints are patent and symmetric. Unremarkable sacral ala Intact bony pelvis. Intact obturator rings. Contour of the right femoral head is maintained. No fract ure. 2 views left hip: Uncomplicated left hip arthroplasty. No periarticular lucency or fracture IMPRESSION: No fracture Transcribed Date/Time: 09/25/2019 5:21 PM
[2019-09-25 19:42] LABS: Anion Gap 14 mmol/L (10-20); BUN (Urea Nitrogen) 59 mg/dL (8.4-25.7); Calc. Creatinine Clearance 43 mL/min (70-130); Carbon Dioxide 25 mmol/L (22-29); Chloride 91 mmol/L (98-107); Estimated GFR-MDRD 23; Glucose 101 mg/dL (70-105); Potassium 3.5 mmol/L (3.5-5.1); Sodium 126 mmol/L (136-145)
[2019-09-25 21:27] LABS: Vancomycin, Random 11.8 ug/mL (See Comment)
[2019-09-25] MEDS ORDERED: Vancomycin HCl 1 GM in Premix Bag 1 BAG IVPB SCH (22:00)
[2019-09-25] MEDS: Tamsulosin HCl 0.4 MG CAP PO SCH (22:05)
--- NOTE | 2019-09-25 23:23 | CON ---
DATE OF CONSULTATION: 09/25/2019 HISTORY OF PRESENT ILLNESS: Mr. Medina is a 58-year-old male whom I have seen in the past, multiple medical problems. Last time I saw him, he was quite verbally abusive when I tried to discuss smoking cessation with him. He has a similar affect in this presentation. His was in the room and he had a similar affect towards her as well. He presented with complaints of shortness of breath and weakness. He apparently fell between the bathtub in the toilet and could not get up. His says it was all she could do to get him out of the bathroom to where she could call for help. He continues to smoke. He has had multiple falls lately. He really has a very poor understanding or recollection of his historical issues regarding his healthcare as he argued with me stating that he had fungus in his blood on multiple admissions and nobody could figure out why. He has a history of chronic fungal sinusitis. He also has a history of chronic steroid use. He gives me a history of having lupus, but multiple physicians who have seen him have questioned that diagnosis, especially since he is an older male. He was found to be hyponatremic again this admission. Subsequently, he is admitted. PAST MEDICAL HISTORY: Remarkable for; 1. Hyponatremia. 2. Steroid dependence. 3. Coronary artery disease. 4. History of BPH. 5. History of chronic kidney disease. 6. Lipid disorder. 7. History of back surgery. 8. History of an appendectomy. 9. History of an abdominal aortic aneurysm repair in 2017. 10. History of hip arthroplasty. 11. History of herniorrhaphy. 12. History of sinus surgery. 13. History of cardiac catheterization. 14. History of coronary artery stenting. ALLERGIES: REPORTS IODINE AND MOXIFLOXACIN INTOLERANCE. MEDICATIONS: Prior to admission, he is on; 1. Xanax. 2. Aspirin. 3. Soma. 4. Fluconazole. 5. Fludrocortisone. 6. Lasix. 7. Potassium. 8. Prednisone. 9. Flomax. 10. Lopressor. 11. Lisinopril. 12. Meclizine. SOCIAL HISTORY: He smokes half pack a day. Denies drinking. FAMILY HISTORY: Negative for lung disease in early age. REVIEW OF SYSTEMS: 10 point review of systems completed, otherwise negative. PHYSICAL EXAMINATION: GENERAL: Mr. Mednia is a 58-year-old male whom I have seen in the past, multiple medical problems VITAL SIGNS: He is afebrile. He is on 2 L. Oximetry is in mid-to-high 90s, heart rate is in the 70s, and blood pressure 127/74. HEENT: Pupils are equal. Sclerae are anicteric. Extraocular movements appear full. NECK: Supple. No lymphadenopathy. LUNGS: Remarkable for diffuse wheezes. HEART: Regular rhythm. S1, S2 normal. ABDOMEN: Soft and nontender. EXTREMITIES: Without clubbing, cyanosis, or edema. LABORATORY DATA: White count 12.8, hemoglobin 12.1, and platelets 273. Sodium 123; potassium 2.9; chloride 88; bicarb 22; BUN 59; and creatinine 3.43, down from 4.24 yesterday. IMAGING: Chest x-ray showed no infiltrates. Abdomen and pelvis CT was done showing atrophy of his left kidney and vascular stent in the abdominal aorta unchanged on CT compared to January 2019. There is a stent in the left renal artery. IMPRESSION: Weakness; deconditioning; chronic steroid use; ?Lupus; history of coronary artery disease; history of peripheral vascular disease; history of abdominal aortic aneurysm; endovascular repair; history of sternotomy, presumably for coronary artery disease. This would not volunteer to his history, but he has sternotomy wires on chest x-ray. The biggest problem I could see at this point in time is his chronic obstructive pulmonary disease with ongoing bronchospasm. I will probably follow him for 1 to 2 days as I have explained to his that I will sign off. He is very opinionated about what he needs with his healthcare. It is very hard to change his opinions or care for him because of this. I will be happy to follow for a couple of days, then we will sign off probably unless something new comes up. This is a 70 minute consult, with greater than 50% of time spent on unit coordinating care. Job ID: [id number] [facility]
[2019-09-26] MEDS: Potassium Chloride 40 MEQ in Dextrose 5% in Water 1,000 ML IV SCH ×4 (00:21→21:06)
[2019-09-26] MEDS: ALPRAZolam 0.5 MG TAB PO PRN ×2 (00:28→21:05)
[2019-09-26] MEDS: Vancomycin HCl 1 GM in Premix Bag 1 BAG IVPB SCH ×2 (00:28→22:59)
[2019-09-26 04:43] LABS: #Eosinphils 0.1 thou/uL (0.0-0.7); #Lymphocytes 0.5 thou/uL (1.20-3.40); #Monocytes 0.8 thou/uL (0.11-0.59); #Neutrophils 9.5 thou/uL (1.40-6.50); %Basophils 0.1 % (0.0-1.0); %Eosinophils 0.5 % (0.0-10.0); %Lymphocytes 4.8 % (21.0-51.0); %Monocytes 7.3 % (0.0-10.0); %Neutrophils 87.3 % (42.0-75.0); Hemoglobin 9.8 g/dL (14.0-18.0); Mean Corpuscular HGB CONC 31.9 g/dL (32.0-36.0); Mean Corpuscular Hemoglobin 25.3 pg (27.0-31.0); Mean Corpuscular Volume 79.3 fL (78.0-98.0); Mean Platelet Volume 7.1 fL (7.4-10.4); Platelet Count 279 thou/uL (130-400); RBC Distribution Width 16.6 % (11.5-14.5); Red Blood Cell (RBC) Count 3.87 mill/uL (4.70-6.10); White Blood Cell (WBC) Count 10.9 thou/uL (4.8-10.8)
[2019-09-26 05:12] LABS: ALT (SGPT) 15 U/L (8-55); AST (SGOT) 16 U/L (5-34); Albumin 2.6 g/dL (3.5-5.0); Alkaline Phosphatase 77 U/L (40-110); Anion Gap 14 mmol/L (10-20); BUN (Urea Nitrogen) 61 mg/dL (8.4-25.7); Bilirubin, Total 0.3 mg/dL (0.2-1.2); Calc. Creatinine Clearance 59 mL/min (70-130); Carbon Dioxide 24 mmol/L (22-29); Chloride 92 mmol/L (98-107); Estimated GFR-MDRD 33; Globulin 2.8 g/dL (2.4-3.5); Glucose 83 mg/dL (70-105); Protein, Total 5.4 g/dL (6.0-8.3); Sodium 127 mmol/L (136-145)
[2019-09-26 05:15] LABS: Potassium 2.7 mmol/L (3.5-5.1)
[2019-09-26] MEDS: Piperacillin/Tazobactam 2.25 GM in Sodium Chloride 0.9% 100 ML IVPB SCH ×3 (05:45→21:07)
[2019-09-26] MEDS ORDERED: Potassium Chloride 20 MEQ TAB PO SCH ×3 (06:30→09:15)
[2019-09-26] MEDS: Fludrocortisone Acetate 0.1 MG TAB PO SCH ×2 (09:31→21:06)
[2019-09-26] MEDS: Acetaminophen 325 MG TAB PO SCH ×3 (09:31→21:05)
[2019-09-26] MEDS: Famotidine 20 MG TAB PO SCH (09:31)
[2019-09-26] MEDS: Metoprolol Tartrate 25 MG TAB PO SCH ×2 (09:31→21:06)
[2019-09-26] MEDS: predniSONE 5 MG TAB PO SCH (09:37)
[2019-09-26] MEDS: Senokot S 8.6-50 MG TAB PO SCH ×2 (09:38→21:07)
[2019-09-26] MEDS: Fluconazole 40 mg/ml Oral Suspension PO SCH (11:45)
[2019-09-26] MEDS: Cyclobenzaprine 10 MG TAB PO PRN (14:45)
[2019-09-26] MEDS: traMADol HCl 50 MG TAB PO PRN (14:45)
--- NOTE | 2019-09-26 14:55 | PRG ---
DATE OF SERVICE: 09/26/2019 Mr. Medina is apologetic for his past behavior today. His heart rates in to 117, blood pressure 143/96, respiratory rate is . Lungs are actually clear. Note is that he has been getting nebulizer treatments. He had wheezing yesterday. were added this morning. Antibiotics probably can be switched to p.o. antibiotics tomorrow. He is on prednisone. He will vancomycin. Negative blood cultures. We will continue to follow. His potassium will be replaced. His renal function will be monitored. Job ID: [id number]
--- NOTE | 2019-09-26 15:42 | PDOC.HOSPP ---
- Subjective Encounter Date: 09/26/19 Encounter Time: 15:35 Subjective: f/u for TAJ/CKD with general weakness, multiple electrolyte abnormalities. Receiving IVF's and TAJ improving. Still remains weak. - Objective Vital Signs & Weight: Vital Signs (12 hours) Temp Pulse Ox 09/26/19 15:13 98.0 F 09/26/19 11:12 97.4 F L 09/26/19 08:00 97 09/26/19 07:43 97.8 F 09/26/19 04:00 97.4 F L Weight Weight 237 lb 5 oz Most Recent Monitor Data Heart Rate from ECG 90 NIBP 112/67 NIBP BP-Mean 82 Respiration from ECG 19 SpO2 95 I&O: 09/25/19 09/26/19 09/27/19 06:59 06:59 06:59 Intake Total 1820 Output Total 1250 Balance 570 Result Diagrams: 09/26/19 04:34 09/26/19 04:34 Additional Labs: Microbiology 09/24/19 21:41 Urine Straight Catheter Urine Culture - Final NO GROWTH AT 36 HOURS 09/24/19 21:30 Venous blood - Left Arm Blood Culture - Preliminary NO GROWTH AT 48 HOURS 09/24/19 21:21 Venous blood - Right Arm Blood Culture - Preliminary NO GROWTH AT 48 HOURS Laboratory Tests 09/24/19 09/24/19 09/25/19 21:21 21:21 00:57 WBC 12.8 H Hgb 12.1 L Sodium Potassium BUN 66 H 63 H Creatinine 6.52 H 5.51 H 09/25/19 09/25/19 09/25/19 07:33 12:42 19:09 WBC Hgb Sodium 123 L 126 L Potassium 2.9 L* 3.5 BUN 60 H 59 H 59 H Creatinine 4.24 H 3.43 H 2.87 H EKG Reviewed by me: Yes (Tele - SR) Hospitalist ROS - Medication Medications: Active Medications Generic Name Dose Route Start Last Admin Trade Name Freq PRN Reason Stop Dose Admin Acetaminophen 650 mg 09/25/19 09:00 09/26/19 14:37 Tylenol PO 650 mg TID LEIGH Administration Albuterol/Ipratropium 3 ml 09/26/19 10:30 09/26/19 10:43 Duoneb NEB Not Given [id number]-[id number] LEIGH Alprazolam 0.5 mg 09/25/19 02:04 09/26/19 00:28 Xanax PO 0.5 mg DAILYPRN PRN Administration Anxiety/Insomnia Aspirin 162.5 mg 09/25/19 09:00 09/25/19 09:39 Aspirin PO 162.5 mg Q2D LEIGH Administration Cyclobenzaprine HCl 10 mg 09/25/19 02:04 09/26/19 14:45 Flexeril PO 10 mg TIDPRN PRN Administration Muscle Spasm Famotidine 20 mg 09/25/19 09:00 09/26/19 09:31 Pepcid PO 20 mg DAILY LEIGH Administration Fluconazole 40 mg 09/25/19 09:00 09/26/19 11:45 Diflucan PO 40 mg DAILY LEIGH Administration Fludrocortisone Acetate 0.1 mg 09/25/19 09:00 09/26/19 09:31 Florinef PO 0.1 mg BID LEIGH Administration Potassium Chloride 40 meq/ 1,020 mls @ 125 mls/hr 09/25/19 03:00 09/26/19 11: 42 Dextrose/Water IV Not Given .Q8H10M LEIGH Piperacillin Sod/Tazobactam 100 mls @ 200 mls/hr 09/25/19 14:00 09/26/19 14: 37 Sod 2.25 gm/ Sodium Chloride IVPB 100 mls Q8HR LEIGH Administration Vancomycin HCl 1 gm/ Device 200 mls @ 200 mls/hr 09/25/19 23:00 09/26/19 00: 28 IVPB 200 mls 2300 LEIGH Administration Metoprolol Tartrate 25 mg 09/25/19 09:00 09/26/19 09:31 Lopressor PO 25 mg BID LEIGH Administration Prednisone 15 mg 09/25/19 08:00 09/26/19 09:37 Prednisone PO 15 mg QAM-WM LEIGH Administration Senna/Docusate Sodium 1 tab 09/25/19 09:00 09/26/19 09:38 Senokot S PO Not Given BID LEIGH Tamsulosin HCl 0.4 mg 09/25/19 21:00 09/25/19 22:05 Flomax PO 0.4 mg HS LEIGH Administration Tramadol HCl 50 mg 09/25/19 02:07 09/26/19 14:45 Ultram PO 50 mg Q6H PRN Administration Severe Pain (7-10) - Exam General Appearance: NAD, awake alert Eye: PERRL, anicteric sclera ENT: normocephalic atraumatic, no oropharyngeal lesions Neck: supple, symmetric, no JVD, no thyromegaly, no lymphadenopathy Heart: RRR, no murmur, no gallops, no rubs, normal peripheral pulses Respiratory - other findings: few scattered rhonchi, diminished in bases Gastrointestinal: soft, non-tender, non-distended, normal bowel sounds Extremities: no cyanosis, no clubbing Skin: normal turgor, no lesions Neurological: cranial nerve grossly intact, no new deficit Musculoskeletal: normal tone, generalized weakness Psychiatric: normal affect, A&O x 3 Hosp A/P (1) TAJ (acute kidney injury) Code(s): N17.9 - ACUTE KIDNEY FAILURE, UNSPECIFIED Status: Acute Plan: Improving slowly with volume replacement, avoid nephrotoxic meds and limit contrast exposure, serial creatinine (2) Hyperphosphatemia Code(s): E83.39 - OTHER DISORDERS OF PHOSPHORUS METABOLISM Status: Acute Plan: Secondary to #1, repeat PO3 in am (3) Adrenal insufficiency Code(s): E27.40 - UNSPECIFIED ADRENOCORTICAL INSUFFICIENCY Status: Chronic Plan: Continue home regiment Florinef/Prednisone (4) HTN (hypertension) Code(s): I10 - ESSENTIAL (PRIMARY) HYPERTENSION Status: Chronic Qualifiers: Hypertension type: essential hypertension Qualified Code(s): I10 - Essential (primary) hypertension Plan: Resume home BP regimen, serial monitoring, labile (5) SLE (systemic lupus erythematosus) Code(s): M32.9 - SYSTEMIC LUPUS ERYTHEMATOSUS, UNSPECIFIED Status: Chronic Plan: Continue Prednisone (6) Tobacco abuse Code(s): Z72.0 - TOBACCO USE Status: Chronic Plan: Tobacco cessation resources - Plan continue antibiotics, PT/OT, 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
[2019-09-26] MEDS: Potassium Chloride 20 MEQ TAB PO SCH (16:45)
--- NOTE | 2019-09-26 17:42 | PRG ---
DATE OF SERVICE: 09/26/2019 SUBJECTIVE: Patient was seen and examined at bedside and overnight events noted. Patient denies any shortness of breath or chest pain or palpitation. No history of nausea or vomiting or diarrhea or fever or chills or cramps. OBJECTIVE: GENERAL: This is a well-built male, in no acute distress. VITAL SIGNS: Temperature 98.0. Heart rate 75. Respiratory rate 19. Blood pressure 121/71. HEENT: Atraumatic, normocephalic. Oral mucosa is moist NECK: Supple. CARDIOVASCULAR: S1, S2 heard. Rate and rhythm regular. RESPIRATORY: Clear to auscultation. GASTROINTESTINAL: Abdomen is soft. MUSCULOSKELETAL: No tenderness. No edema. DERMATOLOGIC: No skin rash. NEUROLOGIC: Alert and awake and oriented X3. No focal neurologic deficits. Moving all the extremities. PSYCHIATRIC: Mood and affect normal. LABORATORY DATA: Potassium is 2.7, sodium is 127, BUN is 61, and creatinine is 2.08. ASSESSMENT AND PLAN: 1. Acute kidney injury, creatinine is better. Avoid nephrotoxins. 2. Hypokalemia, we will replace. 3. Hyponatremia, limit fluid intake. 4. History of hypertension. 5. Edema, controlled. 6. Renal function, getting better. 7. Hypoalbuminemia, moderate. Continue antibiotics. We will replace potassium cautiously. Monitor labs. Job ID: [id number]
[2019-09-26] MEDS ORDERED: Vancomycin HCl 1 GM in Premix Bag 1 BAG IVPB SCH (21:00)
[2019-09-26] MEDS: Tamsulosin HCl 0.4 MG CAP PO SCH (21:06)
[2019-09-26 22:39] LABS: Vancomycin, Trough 13.4 ug/mL
[2019-09-27] MEDS: traMADol HCl 50 MG TAB PO PRN ×2 (02:12→17:05)
[2019-09-27] MEDS: Cyclobenzaprine 10 MG TAB PO PRN ×2 (02:13→17:05)
[2019-09-27 04:03] LABS: Anion Gap 15 mmol/L (10-20); BUN (Urea Nitrogen) 50 mg/dL (8.4-25.7); Calc. Creatinine Clearance 85 mL/min (70-130); Calcium 8.1 mg/dL (7.8-10.44); Carbon Dioxide 22 mmol/L (22-29); Chloride 94 mmol/L (98-107); Estimated GFR-MDRD 50; Glucose 132 mg/dL (70-105); Magnesium 2.2 mg/dL (1.6-2.6); Sodium 128 mmol/L (136-145)
[2019-09-27 04:16] LABS: Phosphorus 1.5 mg/dL (2.3-4.7)
[2019-09-27 04:43] LABS: Band 18 % (5-11); Eosinophils 1 % (0-10); Hemoglobin 9.5 g/dL (14.0-18.0); Lymphocytes 9 % (21-51); MDiff Complete? YES; Mean Corpuscular HGB CONC 31.9 g/dL (32.0-36.0); Mean Corpuscular Hemoglobin 25.4 pg (27.0-31.0); Mean Corpuscular Volume 79.4 fL (78.0-98.0); Mean Platelet Volume 7.1 fL (7.4-10.4); Monocytes 7 % (0-10); Neutrophil 65 % (42-75); Platelet Count 312 thou/uL (130-400); RBC Distribution Width 16.8 % (11.5-14.5); Red Blood Cell (RBC) Count 3.74 mill/uL (4.70-6.10); White Blood Cell (WBC) Count 9.5 thou/uL (4.8-10.8)
[2019-09-27] MEDS: PHOS-NAK 1 PKT PACK PO SCH ×2 (05:11→12:20)
[2019-09-27] MEDS: Piperacillin/Tazobactam 3.375 GM in Sodium Chloride 0.9% 100 ML IVPB SCH ×3 (05:11→17:06)
[2019-09-27] MEDS: Potassium Chloride 40 MEQ in Dextrose 5% in Water 1,000 ML IV SCH (06:17)
[2019-09-27] MEDS: Potassium Chloride 20 MEQ TAB PO SCH ×3 (08:30→15:51)
[2019-09-27] MEDS: Acetaminophen 325 MG TAB PO SCH ×3 (08:30→21:03)
[2019-09-27] MEDS: predniSONE 5 MG TAB PO SCH (08:30)
[2019-09-27] MEDS: Famotidine 20 MG TAB PO SCH ×2 (08:31→21:03)
[2019-09-27] MEDS: Fluconazole 40 mg/ml Oral Suspension PO SCH (08:31)
[2019-09-27] MEDS: Fludrocortisone Acetate 0.1 MG TAB PO SCH ×2 (08:31→21:03)
[2019-09-27] MEDS: Metoprolol Tartrate 25 MG TAB PO SCH ×2 (08:32→21:03)
[2019-09-27] MEDS: Senokot S 8.6-50 MG TAB PO SCH ×2 (08:32→21:03)
[2019-09-27] MEDS: Aspirin 325 MG TAB PO SCH (08:35)
--- NOTE | 2019-09-27 10:59 | PRG ---
DATE OF SERVICE: 09/27/2019 SUBJECTIVE: Patient was seen and examined at bedside and overnight events noted. Patient denies any shortness of breath or chest pain or palpitation. No history of nausea or vomiting or diarrhea or fever or chills or cramps. OBJECTIVE: GENERAL: This is a well-built male, in no apparent distress. VITAL SIGNS: Temperature 97.6. Heart rate 90. Respiratory rate 20. Blood pressure 148/114. HEENT: Atraumatic, normocephalic. Oral mucosa is moist NECK: Supple. CARDIOVASCULAR: S1, S2 heard. Rate and rhythm regular. RESPIRATORY: Clear to auscultation. GASTROINTESTINAL: Abdomen is soft. MUSCULOSKELETAL: 2+ edema. DERMATOLOGIC: No skin rash. NEUROLOGIC: Alert and awake and oriented X3. No focal neurologic deficits. Moving all the extremities. PSYCHIATRIC: Mood and affect normal. LABORATORY DATA: Potassium 3.0, BUN is 50, creatinine is 1.4. ASSESSMENT AND PLAN: 1. Acute kidney injury. Renal function is better, but remains fluid overloaded. Plan is to start back on Lasix and monitor closely. 2. Edema. We will start back on Lasix 40 p.o. b.i.d. 3. Hypokalemia, better, but since adding Lasix, we will increase potassium chloride to 40 mEq p.o. t.i.d. 4. Hyponatremia. Limit fluid intake. We will add Lasix. 5. Hypoalbuminemia. 6. better. 7. Anemia of chronic disease. Plan to start back on Lasix with close monitoring. Stop IV fluids. We will follow. Job ID: [id number]
--- NOTE | 2019-09-27 14:23 | PQF ---
DATE: 09-27-19 ATTN: DR. CYNTHIA CASTRO Please exercise your independent, professional judgment in responding to the clarification form. Clinical indicators are provided on the bottom of this form for your review Please check appropriate box(s) to clarify if the following diagnosis has been ruled in or ruled out: SEPSIS [ ] Ruled in diagnosis [ ] Continue to treat [ ] Resolved [ ] Ruled out diagnosis [ ] Other diagnosis [ ] Unable to determine In addition, please specify: Present on Admission (POA): [ ] Yes [ ] No [ ] Unable to determine For continuity of documentation, please document condition throughout progress notes and discharge summary. Thank You. CLINICAL INDICATORS - SIGNS / SYMPTOMS / LABS / RESULTS AND LOCATION IN MR: ER DX: 09-24-19: SEPSIS, ACUTE KIDNEY FAILURE UNSPECIFIED, HYPOKALEMIA, HYPONATREMIA WBC: 09-24-19: 12.8 09-26-19: 10.9 BANDS: 09-24-19: 11 09-27-19: 18 LACTIC ACID: 09-24-19: 2.3 09-25-19: 2.8 RR: 09-26-19: 101 09-27-19: 126 RISK FACTORS / RESULTS AND LOCATION IN MR: ER DX: 09-24-19: SEPSIS, ACUTE KIDNEY FAILURE UNSPECIFIED, HYPOKALEMIA, HYPONATREMIA TREATMENTS / RESULTS AND LOCATION IN MR: ER NOTES 09-24-19: NS IVF, VANCOMYCIN IV, ZOSYN IV (This form is maintained as a part of the permanent medical record) 2014 [employer]. All Rights Reserved [email or web address] Office: [phone] [facility]
--- NOTE | 2019-09-27 14:41 | PQF ---
DATE: 09-27-19 ATTN: DR. CYNTHIA NASCIMENTO Please exercise your independent, professional judgment in responding to the clarification form. Clinical indicators are provided on the bottom of this form for your review Please check appropriate box(s) to clarify if the following diagnosis has been ruled in or ruled out: OK TYPE 2 [ ] Ruled in diagnosis [ ] Continue to treat [ ] Resolved [ ] Ruled out diagnosis [ ] Other diagnosis [ ] Unable to determine In addition, please specify: Present on Admission (POA): [ ] Yes [ ] No [ ] Unable to determine For continuity of documentation, please document condition throughout progress notes and discharge summary. Thank You. CLINICAL INDICATORS - SIGNS / SYMPTOMS / LABS / RESULTS AND LOCATION IN MR: H&P: 09-25-19: ELEVATED TROPONIN SECONDARY TO DEMAND ISCHEMIA /TYPE 2 OK ER NOTES 09-24-19: HX ESRD, OK, CABG TROPONIN I: 09-24-19: 0.080 09-25-19: 0.029 09-25-19: LESS THAN 0.010 RISK FACTORS / RESULTS AND LOCATION IN MR: ER NOTES 09-24-19: HX ESRD, OK, CABG TREATMENTS / RESULTS AND LOCATION IN MR: SERIES OF TROPONIN: 09-24-19 TO 09-27-19 (This form is maintained as a part of the permanent medical record) 2014 [employer]. All Rights Reserved [email or web address] [email or web address] Office: [phone] [facility]
[2019-09-27] MEDS ORDERED: Vancomycin HCl 1.5 GM in Sodium Chloride 0.9% 250 ML 300 ML IVPB SCH (15:00)
[2019-09-27] MEDS: Furosemide 40 MG TAB PO SCH (15:51)
[2019-09-27 16:11] VITALS: BP 140/90
--- NOTE | 2019-09-27 17:28 | PRG ---
DATE OF SERVICE: 09/27/2019 SUBJECTIVE: Carol has no new complaints. OBJECTIVE: VITAL SIGNS: He is afebrile. Blood pressure 145/98, heart rate in the 90s to low 100 range. LUNGS: Clear today. HEART: Regular rhythm. ABDOMEN: Soft. EXTREMITIES: Without edema. LABORATORY DATA: White count 9.5, hemoglobin 9.5, and platelets 312. Sodium 128, potassium 3, chloride 94, bicarb 22, BUN 50, and creatinine 1.45. IMPRESSION: 1. Chronic obstructive pulmonary disease exacerbation. 2. Prerenal azotemia, improving. 3. Chronic kidney disease. 4. Hyponatremia. 5. History of long-term steroid use. He could be transferred out of the intermediate care unit in my opinion. He is still on IV antimicrobial therapy. His cultures were all negative. I would think he could be converted to p.o. antimicrobial therapy. He is stable to move out of the intermediate care unit. We will sign off. Job ID: [id number]
--- NOTE | 2019-09-27 17:32 | PDOC.HOSPP ---
- Subjective Encounter Date: 09/27/19 Subjective: Pt seen says he feels better but complaints of of left hip area pain with skin abrasion site pain - Objective Vital Signs & Weight: Vital Signs (12 hours) Temp Pulse Pulse Pulse Resp BP BP 09/27/19 16:37 98.0 F 09/27/19 14:55 97 101 H 140/90 134/82 09/27/19 14:46 97 22 H 09/27/19 11:03 97.5 F L 09/27/19 09:01 121 H 126 H 142/91 H 128/89 09/27/19 07:57 97.6 F 09/27/19 07:39 09/27/19 07:10 92 20 Pulse Ox Pulse Ox Pulse Ox 09/27/19 16:37 09/27/19 14:55 09/27/19 14:46 96 09/27/19 11:03 09/27/19 09:01 97 96 09/27/19 07:57 09/27/19 07:39 95 09/27/19 07:10 98 Weight Weight 237 lb 5 oz Most Recent Monitor Data Heart Rate from ECG 99 NIBP 145/98 NIBP BP-Mean 113 Respiration from ECG 23 SpO2 95 I&O: 09/26/19 09/27/19 09/28/19 06:59 06:59 06:59 Intake Total 1820 1820 Output Total 1250 1800 Balance 570 20 Result Diagrams: 09/27/19 03:25 09/27/19 03:25 Hospitalist ROS - Review of Systems Constitutional: reports: weakness. denies: fever Eyes: denies: pain ENT: denies: ear pain Respiratory: denies: cough Cardiovascular: denies: chest pain Gastrointestinal: denies: nausea Genitourinary: denies: dysuria Musculoskeletal: reports: other (left hip area skin abrasion site pain). denies : neck pain Neurological: denies: weakness - Medication Medications: Active Medications Generic Name Dose Route Start Last Admin Trade Name Freq PRN Reason Stop Dose Admin Acetaminophen 650 mg 09/25/19 09:00 09/27/19 15:51 Tylenol PO 650 mg TID LEIGH Administration Albuterol/Ipratropium 3 ml 09/26/19 10:30 09/27/19 14:46 Duoneb NEB 3 ml A1QT-DL LEIGH Administration Alprazolam 0.5 mg 09/25/19 02:04 09/26/19 21:05 Xanax PO 0.5 mg DAILYPRN PRN Administration Anxiety/Insomnia Aspirin 162.5 mg 09/25/19 09:00 09/27/19 08:35 Aspirin PO 162.5 mg Q2D LEIGH Administration Cyclobenzaprine HCl 10 mg 09/25/19 02:04 09/27/19 17:05 Flexeril PO 10 mg TIDPRN PRN Administration Muscle Spasm Famotidine 20 mg 09/27/19 09:00 09/27/19 08:31 Pepcid PO 20 mg BID LEIGH Administration Fluconazole 40 mg 09/25/19 09:00 09/27/19 08:31 Diflucan PO 40 mg DAILY LEIGH Administration Fludrocortisone Acetate 0.1 mg 09/25/19 09:00 09/27/19 08:31 Florinef PO 0.1 mg BID LEIGH Administration Furosemide 40 mg 09/27/19 14:00 09/27/19 15:51 Lasix PO 40 mg 0900,1400 LEIGH Administration Vancomycin HCl 1.5 gm/ Sodium 300 mls @ 200 mls/hr 09/27/19 15:00 09/27/19 15 :51 Chloride IVPB 300 mls 1500 LEIGH Administration Piperacillin Sod/Tazobactam 100 mls @ 200 mls/hr 09/27/19 06:00 09/27/19 17: 06 Sod 3.375 gm/ Sodium Chloride IVPB 100 mls Q6HR LEIGH Administration Metoprolol Tartrate 25 mg 09/25/19 09:00 09/27/19 08:32 Lopressor PO 25 mg BID LEIGH Administration Potassium Chloride 40 meq 09/27/19 12:00 09/27/19 15:51 K-Dur PO 40 meq TID-WM LEIGH Administration Prednisone 15 mg 09/25/19 08:00 09/27/19 08:30 Prednisone PO 15 mg QAM-WM LEIGH Administration Senna/Docusate Sodium 1 tab 09/25/19 09:00 09/27/19 08:32 Senokot S PO Not Given BID LEIGH Tamsulosin HCl 0.4 mg 09/25/19 21:00 09/26/19 21:06 Flomax PO 0.4 mg HS LEIGH Administration Tramadol HCl 50 mg 09/25/19 02:07 09/27/19 17:05 Ultram PO 50 mg Q6H PRN Administration Severe Pain (7-10) - Exam General Appearance: awake alert Eye: anicteric sclera ENT: normocephalic atraumatic Neck: supple Respiratory: no wheezes Gastrointestinal: soft, non-tender Extremities: 2+ LE edema Skin - other findings: groin area tinea Musculoskeletal: normal tone Psychiatric: A&O x 3 Hosp A/P - Plan TAJ With electrolytes abnormality Improving S/P IVF resuscitation started diuretics by Nephrology , No evidence of sepsis CX neg Will dc antibiotics next 24 hours Adrenal insufficiency Continue home regiment Florinef/Prednisone HTN (hypertension) Resume home BP regimen, serial monitoring, labile SLE (systemic lupus erythematosus)Continue Prednisone h/o Bettina esophagitis and Groin candidal infection Continue local care , Out patient GI for F/U for bettina esophagitis DVT/GI Prophylaxis Left hip area skin abrasion Continue pain meds and local care Plan Discussed with pt and nursing staff
[2019-09-27] MEDS: Tamsulosin HCl 0.4 MG CAP PO SCH (21:02)
[2019-09-28] MEDS: Piperacillin/Tazobactam 3.375 GM in Sodium Chloride 0.9% 100 ML IVPB SCH ×2 (01:13→07:06)
[2019-09-28] MEDS: ALPRAZolam 0.5 MG TAB PO PRN (01:13)
[2019-09-28] MEDS: traMADol HCl 50 MG TAB PO PRN (01:14)
[2019-09-28 05:27] LABS: #Eosinphils 0.1 thou/uL (0.0-0.7); #Lymphocytes 0.8 thou/uL (1.20-3.40); #Monocytes 0.9 thou/uL (0.11-0.59); #Neutrophils 5.9 thou/uL (1.40-6.50); %Basophils 0.2 % (0.0-1.0); %Lymphocytes 9.8 % (21.0-51.0); %Monocytes 12.1 % (0.0-10.0); %Neutrophils 76.9 % (42.0-75.0); Mean Corpuscular HGB CONC 33.1 g/dL (32.0-36.0); Mean Corpuscular Hemoglobin 26.3 pg (27.0-31.0); Mean Corpuscular Volume 79.5 fL (78.0-98.0); Mean Platelet Volume 6.5 fL (7.4-10.4); Platelet Count 350 thou/uL (130-400); RBC Distribution Width 16.8 % (11.5-14.5); Red Blood Cell (RBC) Count 3.79 mill/uL (4.70-6.10); White Blood Cell (WBC) Count 7.7 thou/uL (4.8-10.8)
[2019-09-28 05:59] LABS: Anion Gap 14 mmol/L (10-20); BUN (Urea Nitrogen) 35 mg/dL (8.4-25.7); Calc. Creatinine Clearance 94 mL/min (70-130); Calcium 8.9 mg/dL (7.8-10.44); Carbon Dioxide 26 mmol/L (22-29); Chloride 96 mmol/L (98-107); Estimated GFR-MDRD 56; Glucose 83 mg/dL (70-105); Sodium 132 mmol/L (136-145)
[2019-09-28] MEDS: Acetaminophen 325 MG TAB PO SCH (08:23)
[2019-09-28] MEDS: Famotidine 20 MG TAB PO SCH (08:23)
[2019-09-28] MEDS: Potassium Chloride 20 MEQ TAB PO SCH (08:23)
[2019-09-28] MEDS: predniSONE 5 MG TAB PO SCH (08:23)
[2019-09-28] MEDS: Metoprolol Tartrate 25 MG TAB PO SCH (08:24)
[2019-09-28] MEDS: Senokot S 8.6-50 MG TAB PO SCH (08:24)
[2019-09-28] MEDS: Fluconazole 40 mg/ml Oral Suspension PO SCH (08:24)
[2019-09-28] MEDS: Fludrocortisone Acetate 0.1 MG TAB PO SCH (08:24)
[2019-09-28] MEDS: Furosemide 40 MG TAB PO SCH (08:24)
--- NOTE | 2019-09-28 11:10 | PRG ---
DATE OF SERVICE: 09/28/2019 SUBJECTIVE: Patient was seen and examined at bedside and overnight events noted. Patient denies any shortness of breath or chest pain or palpitation. No history of nausea or vomiting or diarrhea or fever or chills or cramps. OBJECTIVE: GENERAL: This is a well-built male, in no apparent distress. VITAL SIGNS: Temperature 97.4. Heart rate 108. Respiratory rate 20. Blood pressure 146/89. HEENT: Atraumatic, normocephalic. Oral mucosa is moist NECK: Supple. CARDIOVASCULAR: S1, S2 heard. Rate and rhythm regular. RESPIRATORY: Clear to auscultation. GASTROINTESTINAL: Abdomen is soft. MUSCULOSKELETAL: No tenderness. No edema. DERMATOLOGIC: No skin rash. NEUROLOGIC: Alert and awake and oriented X3. No focal neurologic deficits. Moving all the extremities. PSYCHIATRIC: Mood and affect normal. LABORATORY DATA: Potassium 4.0, BUN is 35, creatinine is 1.3. ASSESSMENT AND PLAN: 1. Acute kidney injury on chronic kidney stage 3, stable. Creatinine is much better. 2. Hypokalemia, replace. 3. Hyponatremia. Better. Limit fluid intake. 4. Labs are better. Continue Lasix as tolerated. Job ID: [id number]
[2019-09-28 11:13] VITALS: TEMP 97.5
[2019-09-28] MEDS ORDERED: Furosemide 40 MG TAB PO SCH (17:00)
--- NOTE | 2019-09-29 02:31 | DIS ---
DATE OF ADMISSION: 09/24/2019 DATE OF DISCHARGE: 09/28/2019 DISCHARGE DIAGNOSES: 1. Acute kidney injury with electrolyte abnormalities, improving. 2. History of adrenal insufficiency. 3. Sepsis ruled out. 4. Hypertension. 5. History of lupus. 6. History of bettina esophagitis. 7. Skin area abrasion. PHYSICAL EXAMINATION: VITAL SIGNS: Blood pressure 124/78, oxygen saturation 94%, temperature 97.5. GENERAL: The patient is alert, awake, and oriented, in no distress. CHEST: Normal vesicular breathing. HEART: Sounds normal. ABDOMEN: Soft. SKIN: Abrasion in left hip area. Bettina infection in groin area. EXTREMITIES: Mild edema of feet positive. LABORATORY DATA: CBC unremarkable except hemoglobin 10.0, white blood cells 7.7, platelets 350. INR 1.1. BMP unremarkable except 4.0, sodium 132, creatinine 1.31, BUN 35. UA negative. Vanco trough 13.4. Pelvis x-ray, no fracture. X-ray chest, no acute process. CT abdomen and pelvis, interval atrophy of left kidney. No evidence of obstructive uropathy. Re-demonstration of endovascular stent involving the abdominal aorta. CT angiogram from 01/29/2019 does not demonstrate appreciable changes. On that exam, the aorta measured 6 x 5.4 cm. Hyperdensity is also noted as aforementioned. HOSPITAL SUMMARY: Patient, Walt Medina, was admitted on 09/25/2019 with generalized weakness, lethargy, and patient was found to be in acute kidney injury, having borderline hypotension. The patient treated with IV fluids, aggressive hydration and initial creatinine on admission 6.52 and sodium 119, potassium 2.3, phosphorous 10.4, magnesium 2.7. Troponin 0.080. UA negative. The patient treated with aggressive fluids. Evaluated by Nephrology. Patient continued his home dose steroids and also started on broad-spectrum antibiotics. Patient's symptoms improved. His creatinine improved and currently creatinine is 1.31, sodium 132. White blood cells improved. Blood cultures negative. Patient is afebrile. No complaints of abdominal pain, fever, chest pain, shortness of breath. Antibiotics discontinued. The patient offered to stay one more day, however, patient requesting that he has some social issues at home and he must have to do some important work and requesting to be discharged today. Patient's antibiotics discontinued. Advised to continue medications. Also advised to follow up with PCP and Nephrology which he understands. Also he will follow up with GI for bettina esophagitis. Patient advised to continue home medications, being discharged in a stable condition. Job ID: [id number]
== END 2019-09-28 14:16 | disposition home or self-care (01) | DRG 683 ==
LOC: ERS 20:52 → IMCU/EMU 22:45
PROVIDERS: ADMIT Internal Medicine; ATTEND Internal Medicine
DX: N17.9 Acute kidney failure, unspecified (principal); E87.1 Hypo-osmolality and hyponatremia; E27.40 Unspecified adrenocortical insufficiency; B37.81 Candidal esophagitis; I25.10 Atherosclerotic heart disease of native coronary artery without angina pectoris; M32.9 Systemic lupus erythematosus, unspecified; N40.0 Benign prostatic hyperplasia without lower urinary tract symptoms; N18.2 Chronic kidney disease, stage 2 (mild); G89.4 Chronic pain syndrome; E78.5 Hyperlipidemia, unspecified; E87.6 Hypokalemia; E83.39 Other disorders of phosphorus metabolism; E66.9 Obesity, unspecified; F41.9 Anxiety disorder, unspecified; Z96.649 Presence of unspecified artificial hip joint; D63.1 Anemia in chronic kidney disease; I12.9 Hypertensive chronic kidney disease with stage 1 through stage 4 chronic kidney disease, or unspecified chronic kidney disease; Z79.899 Other long term (current) drug therapy; Z79.52 Long term (current) use of systemic steroids; Z95.5 Presence of coronary angioplasty implant and graft; Z79.82 Long term (current) use of aspirin; Z68.30 Body mass index [BMI] 30.0-30.9, adult; Z91.19 Patient's noncompliance with other medical treatment and regimen
CPT/HCPCS: 36415; 36416; 51701; 71045; 72170; 74176; 80048; 80053; 80202; 81003; 82550; 82553; 83605; 83690; 83735; 83930; 83935; 84100; 84300; 84484; 85007; 85025; 85027; 85610; 85730; 87040; 87086; 87149; 90471; 96365; 96366; 96368; 96375; J2543; J3010; J3370; J3480; J3490; J7050; J7070; J7512; J7620

== ENCOUNTER 2019-11-02 16:50 | Inpatient (IN) | payer OTHER, SELFPAY ==
[2019-11-02 17:32] LABS: Hemoglobin 12.6 g/dL (14.0-18.0); Mean Corpuscular HGB CONC 34.5 g/dL (32.0-36.0); Mean Corpuscular Hemoglobin 27.4 pg (27.0-31.0); Mean Corpuscular Volume 79.6 fL (78.0-98.0); Platelet Count 267 thou/uL (130-400); RBC Distribution Width 16.7 % (11.5-14.5); Red Blood Cell (RBC) Count 4.61 mill/uL (4.70-6.10); White Blood Cell (WBC) Count 18.4 thou/uL (4.8-10.8)
[2019-11-02 17:37] LABS: INR-International Normal Ratio 0.9; Prothrombin Time 12.1 SEC (12.0-14.7)
[2019-11-02 17:38] LABS: PTT 22.2 SEC (22.9-36.1)
[2019-11-02 17:50] LABS: Anisocytosis SLIGHT = 6-15 cells (100X) (0-5/hpf); Band 4 % (5-11); Lymphocytes 4 % (21-51); MDiff Complete? YES; Neutrophil 92 % (42-75); Ovalocytes SLIGHT = 2-5 cells (100X) (0-1/hpf); Platelet Morphology Comment Appears Adequate
--- NOTE | 2019-11-02 17:52 | RAD ---
Exam: Chest one view HISTORY:Dyspnea Comparison: 09/24/2019 FINDINGS: Cardiac silhouette:Enlarged cardiac silhouette. Stable sternotomy wires. Aorta: Unremarkable Pulmonary vessels: Normal Costophrenic angles: Clear LUNGS: Diminished lung volumes with chronic changes. No masses or consolidation. Pneumothorax: None Osseous abnormalities: No acute abnormality IMPRESSION: No acute cardiopulmonary process.
[2019-11-02 18:09] LABS: Base Excess-Venous 9.1 mmol/L (-2.0 to 3.0); Bicarbonate (HCO3v) 30.5 mmol/L (22.0-28.0); CO2 Tension (PvCO2) 30.5 mmHg (40.0-50.0); Calcium, Ionized 0.88 mmol/L (See Comments:); Chloride 72 mmol/L (98-107); Hemoglobin - Calc 12.5 g/dL (14.0-18.0); Potassium 1.8 mmol/L (3.5-5.1); Sodium 114 mmol/L (138-145); T. Carbon Dioxide 31.4 mmol/L (22.0-28.0); vO2 Saturation-calc 96.9 % (60.0-85.0)
[2019-11-02 18:11] LABS: ALT (SGPT) 17 U/L (8-55); AST (SGOT) 11 U/L (5-34); Albumin 3.5 g/dL (3.5-5.0); Alkaline Phosphatase 83 U/L (40-110); Anion Gap 12 mmol/L (10-20); BUN (Urea Nitrogen) 34 mg/dL (8.4-25.7); Bilirubin, Total 0.5 mg/dL (0.2-1.2); CK (CPK) 21 U/L (30-200); Calc. Creatinine Clearance 0 mL/min (70-130); Calcium 8.9 mg/dL (7.8-10.44); Carbon Dioxide 35 mmol/L (22-29); Estimated GFR-MDRD 66; Globulin 2.6 g/dL (2.4-3.5); Glucose 159 mg/dL (70-105); Protein, Total 6.1 g/dL (6.0-8.3)
[2019-11-02] MEDS ORDERED: Potassium Chloride 20 MEQ in Premix Bag 1 BAG IVPB SCH (18:15)
[2019-11-02 18:21] LABS: CKMB 1.7 ng/mL (0-6.6); Chloride 73 mmol/L (98-107); Potassium 1.9 mmol/L (3.5-5.1); Sodium 118 mmol/L (136-145)
[2019-11-02] MEDS ORDERED: Potassium Chloride 20 MEQ TAB ONE (18:24)
[2019-11-02] MEDS ORDERED: D5 1/2 NS w/20 mEq KCL 1,000 ML ONE (18:25)
[2019-11-02] MEDS ORDERED: Hydrocortisone Sod Succ/PF 100 mg/2 ml Vial IVP SCH (19:30)
[2019-11-02 19:46] LABS: Bacteria/HPF None Seen HPF (None Seen); Bilirubin Negative (Negative); Blood, Urine 1+ (Negative); Clarity Clear (Clear); Glucose, Urine (Dipstick) Normal (Negative); Leukocyte Negative Leu/uL (Negative); Nitrite Negative (Negative); Protein, Urine (Dipstick) Negative (Neg-Trace); Squamous Epithelial None Seen HPF (0-3); Urobilinogen Normal mg/dL (Less than 2); WBC/HPF 0-3 HPF (0-3)
[2019-11-02 19:49] LABS: Urine Culture Reflex No No
--- NOTE | 2019-11-02 19:52 | PDOC.HHP ---
Hospitalist HPI - History of Present Illness Weakness History of Present Illness: Patient is a 59 year old male with PMH lupus, adrenal insufficiency on chronic steroid therapy who presents to ED for weakness, falls, back pain, dyspnea on exertion. 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 Patient and family report developing altered mental status in last 2-3 weeks and falling, reports 3 falls (without LOC or head trauma, no palpitaitons, chest pain with falling). In ED, WBC 18, hgb 12, VBG w/ metabolic and respiratory alkalosis, Na 114, K 1.9, Cl 73, CO2 on BMP 35, TnI 0.93, UA/CXR clear. Patient had very low sodium last admission in August as well, improved to about 130 with treatment but has recurred. Patient has SLE and adrenal insufficiency on prednisone 15mg PO daily and fludrocortisone 0.1mg BID, sees Dr Tamayo of nephrology. Hospitalist ROS - Review of Systems Constitutional: reports: weakness, malaise. denies: fever, chills Eyes: denies: pain, vision change ENT: denies: throat pain, throat swelling Respiratory: denies: cough, shortness of breath Cardiovascular: denies: chest pain, palpitations Gastrointestinal: denies: nausea, vomiting, abdominal pain Musculoskeletal: reports: back pain Skin: reports: rash, lesions Neurological: reports: weakness (global) All other systems reviewed; all pertinent +/- noted in HPI/Subj Hospitalist History - Past Medical History Other Medical History: Notes: Lupus, Past medical history includes renal disease, end stage renal disease, atrophic left kidney. Past medical history includes history of hyperlipidemia, high cholesterol, osteoarthritis, Notes: AAA - dx'd ,, Past medical history includes endocrine disease, adrenal insufficiency, Past medical history includes collagen vascular disease, chronic sinusitis, CHF, history of hypertension. cardiac history, coronary artery disease, myocardial infarction (2009). - Past Surgical History Other Surgical History: Cataract Surgery, bilat 2017, Surgical history of appendectomy, Had AAA repaired on 12/29/16 (FAILED REPAIR) WITH SECOND AAA REPAIR IN MARCH 2017 with stent, Surgical history of orthopedic surgery, LEFT HIP REPLACEMENT, hernia repair, sinus surgery, heart cath. Surgical history of coronary artery bypass graft surgery, three vessels. Stent placement 02/10/17. ABDOMINAL ILIAC STENT, PER PATIENT. - Family History Other Family History: reviewed and noncontributory - Social History Smoking Status: Current every day smoker Alcohol: reports: None Drugs: reports: none - Exam General Appearance: awake alert General - other findings: weak globally Eye: PERRL, scleral icterus ENT: normocephalic atraumatic, moist mucosa Neck: supple, no JVD Heart: no murmur, no gallops, no rubs, irregular Respiratory: CTAB, no wheezes, no rales, no ronchi Gastrointestinal: soft, non-tender, non-distended, normal bowel sounds Extremities: no cyanosis, no clubbing, no edema Skin - other findings: erythema of scrotum with deroofed blisters small <0.5cm each perhaps 5-10 Neurological: cranial nerve grossly intact, normal sensation to touch, no weakness, no focal deficits Musculoskeletal: generalized weakness Psychiatric: lethargic Hospitalist Results - Labs Result Diagrams: 11/02/19 17:15 11/02/19 20:14 Lab results: WBC 18.4 thou/uL (4.8-10.8) H 11/02/19 17:15 Hgb 12.6 g/dL (14.0-18.0) L 11/02/19 17:15 Hct 36.7 % (42.0-52.0) L 11/02/19 17:15 MCV 79.6 fL (78.0-98.0) 11/02/19 17:15 Plt Count 267 thou/uL (130-400) 11/02/19 17:15 Band Neuts % (Manual) 4 % (5-11) L 11/02/19 17:15 VBG pCO2 30.5 mmHg (40.0-50.0) L 11/02/19 17:52 VBG pO2 72.5 mmHg (35.0-45.0) H 11/02/19 17:52 Sodium 118 mmol/L (136-145) L* 11/02/19 17:15 Potassium 1.9 mmol/L (3.5-5.1) L* 11/02/19 17:15 Chloride 73 mmol/L (98-107) L* 11/02/19 17:15 Carbon Dioxide 35 mmol/L (22-29) H 11/02/19 17:15 BUN 34 mg/dL (8.4-25.7) H 11/02/19 17:15 Creatinine 1.13 mg/dL (0.7-1.3) 11/02/19 17:15 Glucose 159 mg/dL (70-105) H 11/02/19 17:15 Lactic Acid 1.6 mmol/L (0.5-2.2) 11/02/19 17:33 Calcium 8.9 mg/dL (7.8-10.44) 11/02/19 17:15 Total Bilirubin 0.5 mg/dL (0.2-1.2) 11/02/19 17:15 AST 11 U/L (5-34) 11/02/19 17:15 ALT 17 U/L (8-55) 11/02/19 17:15 Alkaline Phosphatase 83 U/L (40-110) 11/02/19 17:15 Creatine Kinase 21 U/L (30-200) L 11/02/19 17:15 CK-MB (CK-2) 1.7 ng/mL (0-6.6) 11/02/19 17:15 Troponin I 0.093 ng/mL (< 0.028) H 11/02/19 17:15 B-Natriuretic Peptide 83.6 pg/mL (0-100) 11/02/19 17:15 Serum Total Protein 6.1 g/dL (6.0-8.3) 11/02/19 17:15 Albumin 3.5 g/dL (3.5-5.0) 11/02/19 17:15 Urine Ketones Negative mg/dL (Negative) 11/02/19 19:15 Urine Blood 1+ (Negative) A 11/02/19 19:15 Urine Nitrite Negative (Negative) 11/02/19 19:15 Ur Leukocyte Esterase Negative Nedra/uL (Negative) 11/02/19 19:15 Urine RBC 4-6 HPF (0-3) A 11/02/19 19:15 Urine WBC 0-3 HPF (0-3) 11/02/19 19:15 Ur Squamous Epith Cells None Seen HPF (0-3) 11/02/19 19:15 Urine Bacteria None Seen HPF (None Seen) 11/02/19 19:15 Hospitalist H&P A/P - Plan Plan: Patient is a 59 year old male with PMH lupus, adrenal insufficiency who presented to ED with weaknes, being treated for: # severe sepsis - leukocytosis, tachycardia likely secondary to infection ( cellulitis is best current guess of source) - recieved 1-2L IVF in ED, will not give more IVF as patient MAP > 65 and very high risk of overcorrecting sodium which could lead to catastrophic brain damage and is not worth the risk - empiric vanc/cefepime - consult ID in AM - wound culture, HSV culture ordered - follow blood cultures # adrenal insufficiency with adrenal crisis - hypotension, severe lab abnormalities consistent with adrenal insufficiency, likely secondary to infection, continue home dose florinef, will start stress dose steroids # hypotension - likely secondary to adrenal insufficiency and infection # CKD stage III - appears near baseline, was discharged with Cr 1.3 last admission, trend BMP - Dr Rayo called by ED, 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, will contact them instead # hyponatremia, acute and chronic, best recent is about 130, will consult nephrology # hypokalemia - replacement parameters in chart, replete PRN, likely worsened by adrenal issues, treat as above # metabolic alkalosis - consistent with adrenal insufficiency, treat as above # history of anshul esophagitis - previous plan was for outpatient GI referral # SLE/lupus - continue steroids as above and other home meds to be restarted once med rec complete # HTN - will order PRN meds, home meds to be restarted once med rec complete # elevated troponin - trend troponin, consult cardiology
[2019-11-02] MEDS ORDERED: Hydrocortisone Sod Succ/PF 100 mg/2 ml Vial ONE (20:05)
[2019-11-02] MEDS ORDERED: Cefepime 2 GM VIAL ONE (20:05)
[2019-11-02] MEDS ORDERED: Fludrocortisone Acetate 0.1 MG TAB PO SCH (20:15)
[2019-11-02] MEDS ORDERED: Vancomycin HCl 1 GM in Sodium Chloride 0.9% 250 ML 300 ML IVPB SCH (20:30)
[2019-11-02] MEDS ORDERED: Meclizine HCl 25 MG TAB PO PRN (20:31)
[2019-11-02] MEDS ORDERED: HYDROcodone/Acetaminophen 5/325 mg Tablet PO PRN (20:34)
[2019-11-02] MEDS ORDERED: Ondansetron PF 4 MG/2 ML Vial IVP PRN ×2 (20:34→20:37)
[2019-11-02] MEDS ORDERED: Bisacodyl 5 MG TAB PO PRN (20:34)
[2019-11-02] MEDS ORDERED: Acetaminophen 325 MG TAB PO PRN (20:34)
[2019-11-02] MEDS ORDERED: Bisacodyl 10 MG SUPP PR PRN (20:34)
[2019-11-02] MEDS ORDERED: Loperamide HCl 2 MG CAP PO PRN (20:34)
[2019-11-02] MEDS ORDERED: Promethazine HCl 12.5 MG in Sodium Chloride 0.9% 50 ML IVPB PRN (20:37)
[2019-11-02] MEDS ORDERED: cloNIDine 0.1 MG TAB PO PRN (20:37)
[2019-11-02] MEDS ORDERED: hydrALAZINE 20 MG/ML VIAL SLOW IVP PRN (20:37)
[2019-11-02] MEDS ORDERED: Aspirin 325 MG TAB PO SCH (20:45)
[2019-11-02 20:47] LABS: Troponin I 0.078 ng/mL (< 0.028)
[2019-11-02 20:50] LABS: Anion Gap 11 mmol/L (10-20); BUN (Urea Nitrogen) 30 mg/dL (8.4-25.7); Calc. Creatinine Clearance 0 mL/min (70-130); Carbon Dioxide 32 mmol/L (22-29); Chloride 78 mmol/L (98-107); Estimated GFR-MDRD 79; Glucose 162 mg/dL (70-105)
[2019-11-02 21:03] LABS: Potassium 1.9 mmol/L (3.5-5.1); Sodium 119 mmol/L (136-145)
[2019-11-02 21:24] LABS: Calcium 8.2 mg/dL (7.8-10.44)
[2019-11-02] MEDS: Fludrocortisone Acetate 0.1 MG TAB PO SCH (23:01)
[2019-11-02] MEDS: Senokot S 8.6-50 MG TAB PO SCH (23:02)
[2019-11-02] MEDS ORDERED: Potassium Chloride 40 MEQ in Sodium Chloride 0.9% 250 ML 250 ML IVPB SCH (23:45)
[2019-11-03] MEDS: Cefepime 1 GM in Sodium Chloride 0.9% 100 ML IVPB SCH ×2 (00:01→05:37)
[2019-11-03] MEDS: Morphine 2 MG/ML SYRINGE SLOW IVP PRN ×2 (00:06→08:55)
[2019-11-03] MEDS ORDERED: Methocarbamol 1 GM in Sodium Chloride 0.9% 100 ML IVPB PRN (03:21)
[2019-11-03 03:33] LABS: Band 1 % (5-11); Hemoglobin 11.7 g/dL (14.0-18.0); Lymphocytes 1 % (21-51); MDiff Complete? YES; Mean Corpuscular HGB CONC 34.1 g/dL (32.0-36.0); Mean Corpuscular Hemoglobin 27.6 pg (27.0-31.0); Mean Corpuscular Volume 80.9 fL (78.0-98.0); Mean Platelet Volume 7.1 fL (7.4-10.4); Monocytes 3 % (0-10); Neutrophil 95 % (42-75); Platelet Count 261 thou/uL (130-400); Platelet Morphology Comment Appears Adequate; RBC Distribution Width 16.6 % (11.5-14.5); Red Blood Cell (RBC) Count 4.25 mill/uL (4.70-6.10); White Blood Cell (WBC) Count 16.6 thou/uL (4.8-10.8)
[2019-11-03 03:37] LABS: Magnesium 2.1 mg/dL (1.6-2.6); Troponin I 0.064 ng/mL (< 0.028)
[2019-11-03 03:38] LABS: Anion Gap 13 mmol/L (10-20); BUN (Urea Nitrogen) 29 mg/dL (8.4-25.7); Calc. Creatinine Clearance 113 mL/min (70-130); Calcium 8.4 mg/dL (7.8-10.44); Carbon Dioxide 26 mmol/L (22-29); Chloride 84 mmol/L (98-107); Estimated GFR-MDRD 79; Glucose 154 mg/dL (70-105); Potassium 3.4 mmol/L (3.5-5.1); Sodium 120 mmol/L (136-145)
[2019-11-03 03:39] LABS: Phosphorus 1.8 mg/dL (2.3-4.7)
[2019-11-03] MEDS ORDERED: Hydrocortisone Sod Succ/PF 100 mg/2 ml Vial IVP SCH (04:00)
[2019-11-03] MEDS ORDERED: Potassium Phosphate 30 MMOL in Sodium Chloride 0.9% 250 ML 250 ML IVPB SCH (04:45)
[2019-11-03] MEDS ORDERED: Vancomycin HCl 1.5 GM in Sodium Chloride 0.9% 250 ML 300 ML IVPB SCH (06:00)
[2019-11-03] MEDS: Famotidine 20 MG TAB PO SCH ×2 (08:46)
[2019-11-03] MEDS: Fludrocortisone Acetate 0.1 MG TAB PO SCH (08:46)
[2019-11-03] MEDS: Senokot S 8.6-50 MG TAB PO SCH (08:46)
[2019-11-03] MEDS: Metoprolol Tartrate 25 MG TAB PO SCH ×2 (08:46)
[2019-11-03] MEDS ORDERED: Enoxaparin Sodium 30 MG/0.3 ML SYRINGE SC SCH (09:00)
[2019-11-03] MEDS ORDERED: Aspirin 81 mg Enteric Coated Tablet PO SCH (09:00)
[2019-11-03] MEDS ORDERED: Tamsulosin HCl 0.4 MG CAP PO SCH (09:00)
[2019-11-03] MEDS ORDERED: ALPRAZolam 0.5 MG TAB PO SCH (09:00)
[2019-11-03 09:24] LABS: Anion Gap 19 mmol/L (10-20); BUN (Urea Nitrogen) 28 mg/dL (8.4-25.7); Calc. Creatinine Clearance 117 mL/min (70-130); Calcium 8.5 mg/dL (7.8-10.44); Carbon Dioxide 20 mmol/L (22-29); Chloride 88 mmol/L (98-107); Estimated GFR-MDRD 82; Glucose 192 mg/dL (70-105); Sodium 123 mmol/L (136-145)
[2019-11-03 09:41] LABS: Troponin I 0.048 ng/mL (< 0.028)
[2019-11-03 10:49] VITALS: TEMP 98
[2019-11-03 12:17] VITALS: BP 134/67
--- NOTE | 2019-11-03 14:13 | CON ---
DATE OF CONSULTATION: 11/03/2019 REASON FOR CONSULTATION: IMCU placement. HISTORY OF PRESENT ILLNESS: The patient is a 59-year-old male, who was admitted to the hospital yesterday with generalized malaise, shortness of breath, and congestion. He was found to have sodium level of 118 and potassium level of 1.9. He has been receiving intermittent steroid shots as an outpatient. He has also been intermittently using prednisone. He has been on furosemide and metolazone. He feels better now after having his potassium supplemented and his sodium level is now starting to go up. PAST MEDICAL HISTORY: 1. Systemic lupus erythematosus. 2. Hyponatremia. 3. Adrenal insufficiency. 4. Coronary artery disease. 5. Benign prostatic hypertrophy. 6. Chronic kidney disease. 7. Back surgery. 8. Appendectomy. 9. Herniorrhaphy. 10. Arthroplasty of the hip. 11. Sinus surgery. 12. Cardiac catheterization for coronary artery stenting. ALLERGIES: IODINE, MOXIFLOXACIN, AND AMOXICILLIN. MEDICATIONS: Prior to admission; 1. Soma. 2. Phenergan. 3. Potassium chloride. 4. Antivert. 5. Zaroxolyn. 6. Prednisone. 7. Lopressor. 8. Lasix. 9. Fludrocortisone. 10. Flomax. 11. Xanax. Current inpatient medications; 1. Xanax. 2. Ecotrin. 3. Dulcolax. 4. Cefepime. 5. Clonidine. 6. Enoxaparin. 7. Pepcid. 8. Florinef. 9. Apresoline. 10. [place]. 11. Solu-Cortef. 12. Imodium. 13. Antivert. 14. Soma. 15. Lopressor. 16. Morphine. 17. Zofran. 18. Protonix. 19. Tamsulosin. 20. Vancomycin. PHYSICAL EXAMINATION: VITAL SIGNS: Temperature 97.8, pulse 98, blood pressure 142/90, and O2 saturation 94%. GENERAL: He can sit up. He appears somewhat weak, but he is very talkative. HEENT: Unremarkable. NECK: No adenopathy or JVD. LUNGS: Coarse rhonchi bilaterally. CARDIOVASCULAR: S1 and S2. Regular. ABDOMEN: Obese, soft, and nontender. EXTREMITIES: Trace edema throughout. LABORATORY DATA: Sodium 123, potassium 4.0, chloride 88, CO2 of 20, BUN 28, creatinine 0.9, and glucose 192. White blood cell count 16.6, hematocrit 34.4, and platelet count 261. Venous blood gas; pH of 7.61, pCO2 of 30, and pO2 of 72. IMAGING DATA: Chest x-ray shows no overt mass, effusion, or infiltrate. He has old sternal wires. ASSESSMENT: 1. The patient has severe electrolyte issues including hyponatremia and hypokalemia, that are probably secondary to furosemide and metolazone use. 2. Chronic obstructive pulmonary disease with exacerbation. 3. Doubt overt sepsis syndrome. PLAN: He is currently on steroids. I will add nebulization treatments. His metolazone has been held and his Lasix is being held. His antibiotics can probably be consolidated if his 48-hour cultures are negative. Job ID: [id number]
--- NOTE | 2019-11-04 05:07 | DIS ---
DATE OF ADMISSION: 11/02/2019 DATE OF DISCHARGE: 11/03/2019 REASON FOR HOSPITALIZATION: Generalized weakness. SIGNIFICANT FINDINGS: The patient found to be septic with hyponatremia. PROCEDURES PERFORMED AND TREATMENTS RENDERED: The patient was admitted to intermediate medical care floor for maximum medical therapy. The patient was seen and evaluated by Internal Medicine physician and Pulmonology/Critical Care - please see full history and physical and consultation notes for details. The patient is alert and oriented to his baseline and has history of frequent hospitalizations, followed by frequently leaving against medical advice. I saw the patient and evaluated him on 11/03/2019 and he is accompanied by his family at bedside. The patient is alert and oriented to his baseline, and able to make his own medical decisions. The patient insistent on leaving against medical advice and states that there is nothing that the hospital can do for him that he cannot do a home. The patient is chronically on steroids, fludrocortisone, and salt tablets. The patient states that he will continue his home medications and follow up with his primary care physician in the upcoming week. Unfortunately, despite maximum efforts by myself and nursing staff, the patient could not be convinced to stay and participate in his care. The patient left against medical advice on 11/03/2019. DISCHARGE DISPOSITION: Guarded as the patient left against medical advice. DISCHARGE CONDITION: Guarded as the patient left against medical advice. DISCHARGE MEDICATIONS: The patient was offered refill of medications, though he states that he has recently refilled all of his medications and does not need any refills. Please see full discharge medication list for details from medicine reconciliation. TIME SPENT: Greater than 39 minutes spent coordinating care and discharge process for this patient who left against medical advice on 11/03/2019. Job ID: [id number]
--- NOTE | 2019-11-04 23:40 | PQF ---
GABY Young [id number] CLINICAL DOCUMENTATION CLARIFICATION FORM: POST DISCHARGE Addendum to original discharge summary date: ____ Late entry note date: __ DATE: 11/04/2019 ATTN:GABY LLAMAS Please exercise your independent, professional judgment in responding to the clarification form. Clinical indicators are provided on the bottom of this form for your review Please check appropriate box(s): Conflicting documentation was noted in the Medical Record, please clarify if patient is being treated/monitored for: [ ] End stage renal disease [ ] Chronic kidney disease 3 [ ] Other diagnosis [ ] Unable to determine For continuity of documentation, please document condition throughout progress notes and discharge summary. Thank You. CLINICAL INDICATORS - SIGNS / SYMPTOMS/ LABS - PMH includes renal disease, ESRD, atropic left kidney- H&P, 11/02, Brett Raza MD - CKD stage III, appears near baseline- H&P, 11/02, Brett Raza MD - BUN: 29H- Laboratory, 11/03 - Creatinine: 0.97, GFR: 79- Laboratory, 11/03 RISK FACTORS - HTN- H&P, 11/02, Brett Raza MD - Hypokalemia- H&P, 11/02, Brett Raza MD TREATMENT - Sodium chloride.IV-MAR, 11/03 - Metoprolol Tartrate.T- MAR (This form is maintained as a part of the permanent medical record) 2014 [employer], [employer]. All Rights Reserved Beka Castellanos [not provided] [not provided] [employer]
== END 2019-11-03 12:11 | disposition left against medical advice (07) | DRG 872 ==
LOC: ERS 16:50 → IMCU/EMU 22:44
PROVIDERS: ADMIT Family Medicine; ATTEND Family Medicine
DX: A41.9 Sepsis, unspecified organism (principal); E87.1 Hypo-osmolality and hyponatremia; E27.40 Unspecified adrenocortical insufficiency; N17.9 Acute kidney failure, unspecified; E87.3 Alkalosis; J44.1 Chronic obstructive pulmonary disease with (acute) exacerbation; I13.0 Hypertensive heart and chronic kidney disease with heart failure and stage 1 through stage 4 chronic kidney disease, or unspecified chronic kidney disease; Z53.29 Procedure and treatment not carried out because of patient's decision for other reasons; M32.9 Systemic lupus erythematosus, unspecified; E11.22 Type 2 diabetes mellitus with diabetic chronic kidney disease; E78.5 Hyperlipidemia, unspecified; E78.00 Pure hypercholesterolemia, unspecified; M19.90 Unspecified osteoarthritis, unspecified site; F17.210 Nicotine dependence, cigarettes, uncomplicated; R65.20 Severe sepsis without septic shock; I95.9 Hypotension, unspecified; I12.9 Hypertensive chronic kidney disease with stage 1 through stage 4 chronic kidney disease, or unspecified chronic kidney disease; N18.3 Chronic kidney disease, stage 3 (moderate); E87.6 Hypokalemia; I25.10 Atherosclerotic heart disease of native coronary artery without angina pectoris; Z96.642 Presence of left artificial hip joint; I25.2 Old myocardial infarction; Z98.42 Cataract extraction status, left eye; Z98.41 Cataract extraction status, right eye; Z95.5 Presence of coronary angioplasty implant and graft; Z79.4 Long term (current) use of insulin; Z90.49 Acquired absence of other specified parts of digestive tract; Z95.1 Presence of aortocoronary bypass graft; Z91.81 History of falling; Z88.1 Allergy status to other antibiotic agents; Z88.8 Allergy status to other drugs, medicaments and biological substances
CPT/HCPCS: 36415; 71045; 80048; 80053; 81001; 82330; 82533; 82550; 82553; 82803; 83605; 83735; 83880; 84100; 84443; 84484; 85025; 85610; 85730; 87040; 87070; 87205; 93005; 94640; 94760; 96361; 96365; 96366; 96367; 96368; J0692; J1650; J1720; J2270; J2405; J2800; J3370; J3480; J3490; J7050; J7620

== ENCOUNTER 2019-11-08 07:53 | Emergency (ER) | payer SELFPAY ==
[2019-11-08] MEDS ORDERED: Aspirin Chewable 81 MG TAB ONE (08:32)
[2019-11-08 08:41] LABS: #Eosinphils 0.1 thou/uL (0.0-0.7); #Monocytes 0.9 thou/uL (0.11-0.59); #Neutrophils 10.8 thou/uL (1.40-6.50); %Eosinophils 0.5 % (0.0-10.0); %Lymphocytes 7.8 % (21.0-51.0); %Neutrophils 84.7 % (42.0-75.0); Hemoglobin 12.3 g/dL (14.0-18.0); Mean Corpuscular HGB CONC 33.7 g/dL (32.0-36.0); Mean Corpuscular Volume 82.9 fL (78.0-98.0); Mean Platelet Volume 6.8 fL (7.4-10.4); Platelet Count 322 thou/uL (130-400); RBC Distribution Width 17.3 % (11.5-14.5); Red Blood Cell (RBC) Count 4.39 mill/uL (4.70-6.10); White Blood Cell (WBC) Count 12.7 thou/uL (4.8-10.8)
--- NOTE | 2019-11-08 08:58 | RAD ---
XR Chest 1 View Portable HISTORY: Chest pain COMPARISON: 11/02/2019 FINDINGS: The heart size is normal. Changes of median sternotomy are again seen. The lungs are well e xpanded without focal areas of consolidation, pneumothorax or pleural effusions. There are degenerative changes in the right shoulder joint. IMPRESSION: No radiographic evidence of acute cardiopulmonary process.
[2019-11-08 09:11] LABS: ALT (SGPT) 18 U/L (8-55); AST (SGOT) 17 U/L (5-34); Albumin 3.6 g/dL (3.5-5.0); Alkaline Phosphatase 76 U/L (40-110); Anion Gap 16 mmol/L (10-20); BUN (Urea Nitrogen) 25 mg/dL (8.4-25.7); Bilirubin, Total 0.3 mg/dL (0.2-1.2); CK (CPK) 15 U/L (30-200); Calc. Creatinine Clearance 0 mL/min (70-130); Calcium 8.6 mg/dL (7.8-10.44); Carbon Dioxide 30 mmol/L (22-29); Chloride 80 mmol/L (98-107); Estimated GFR-MDRD 64; Globulin 2.9 g/dL (2.4-3.5); Glucose 124 mg/dL (70-105); Protein, Total 6.5 g/dL (6.0-8.3); Sodium 123 mmol/L (136-145)
[2019-11-08 09:16] LABS: CKMB 1.5 ng/mL (0-6.6)
[2019-11-08 09:18] LABS: Potassium 2.9 mmol/L (3.5-5.1)
[2019-11-08] MEDS ORDERED: HYDROcodone/Acetaminophen 5/325 mg Tablet ONE (10:07)
[2019-11-08] MEDS ORDERED: Potassium Chloride 20 MEQ TAB ONE (10:07)
== END 2019-11-08 10:37 | disposition left against medical advice (07) ==
LOC: ERS 07:53
DX: E87.6 Hypokalemia (principal); E87.1 Hypo-osmolality and hyponatremia; I13.2 Hypertensive heart and chronic kidney disease with heart failure and with stage 5 chronic kidney disease, or end stage renal disease; N18.6 End stage renal disease; I50.9 Heart failure, unspecified; E78.5 Hyperlipidemia, unspecified; E78.00 Pure hypercholesterolemia, unspecified; M19.90 Unspecified osteoarthritis, unspecified site; I25.10 Atherosclerotic heart disease of native coronary artery without angina pectoris; I25.2 Old myocardial infarction; F41.9 Anxiety disorder, unspecified; F17.210 Nicotine dependence, cigarettes, uncomplicated
CPT/HCPCS: 36415; 71045; 80053; 82550; 82553; 83605; 83880; 84484; 85025; 87040; 93005; 96360; J7620

== ENCOUNTER 2019-11-09 22:39 | Inpatient (IN) | payer SELFPAY ==
[~2019-11-09 22:39] MED LIST changes: -ISOVUE-370 76%-LOCM 1 ML ONE; +Iopamidol 370 76% 100 ML VIAL ONE; -Iopamidol 370 76% 50 ML VIAL FS ONE
[2019-11-10] MEDS ORDERED: Potassium Chloride 20 MEQ TAB ONE (00:19)
[2019-11-10 00:50] LABS: CKMB 1.2 ng/mL (0-6.6)
[2019-11-10] MEDS ORDERED: Acetaminophen 325 MG TAB PO PRN ×2 (02:22→02:51)
[2019-11-10] MEDS ORDERED: Ondansetron PF 4 MG/2 ML Vial IVP PRN ×2 (02:22→02:51)
[2019-11-10] MEDS ORDERED: Sodium Chloride 0.9% 1,000 ML IV SCH (02:51)
[2019-11-10] MEDS ORDERED: Ondansetron ODT 4 MG TAB SL PRN (02:51)
--- NOTE | 2019-11-10 02:53 | PDOC.EVN ---
Event Note - Event Note Event Note: [id number]
[2019-11-10 04:00] LABS: Mean Corpuscular HGB CONC 35.6 g/dL (32.0-36.0); Mean Corpuscular Hemoglobin 29.4 pg (27.0-31.0); Mean Corpuscular Volume 82.5 fL (78.0-98.0); Mean Platelet Volume 7.1 fL (7.4-10.4); Platelet Count 197 thou/uL (130-400); Red Blood Cell (RBC) Count 3.73 mill/uL (4.70-6.10); White Blood Cell (WBC) Count 10.8 thou/uL (4.8-10.8)
[2019-11-10 04:11] LABS: Band 2 % (5-11); Eosinophils 1 % (0-10); Lymphocytes 5 % (21-51); MDiff Complete? YES; Monocytes 2 % (0-10); Neutrophil 90 % (42-75)
[2019-11-10 04:18] LABS: Anion Gap 14 mmol/L (10-20); BUN (Urea Nitrogen) 17 mg/dL (8.4-25.7); Calc. Creatinine Clearance 0 mL/min (70-130); Calcium 8.4 mg/dL (7.8-10.44); Carbon Dioxide 27 mmol/L (22-29); Chloride 83 mmol/L (98-107); Estimated GFR-MDRD Greater than 90; Glucose 140 mg/dL (70-105); Magnesium 1.7 mg/dL (1.6-2.6); Potassium 3.3 mmol/L (3.5-5.1); Sodium 121 mmol/L (136-145)
--- NOTE | 2019-11-10 04:46 | HP ---
CHIEF COMPLAINT: Chest pain. HISTORY OF PRESENT ILLNESS: Mr. Medina is a 59-year-old male with past medical history of congestive heart failure, chronic kidney disease, hyperlipidemia, hypertension, AAA, collagen vascular disease, lupus, coronary artery disease, myocardial infarction, among others, presents to the emergency room for the second time with chest pain. The patient left AMA after found to be hyponatremic and hypokalemic earlier. Workup in the emergency room including CT of the chest, no dissection. Troponin 0.04. The patient was found to be hypokalemic and hyponatremic with a sodium of 119 and potassium of 2.4. The patient is on Lasix and metolazone. Potassium replacement started. Also, the patient started on IV NS. The patient is being admitted to hospital for further management. PAST MEDICAL HISTORY: As mentioned above in the history of present illness. PAST SURGICAL HISTORY: 1. Cataract surgery. 2. Appendectomy. 3. AAA repair. 4. Left hip replacement. 5. Hernia repair. 6. Sinus surgery. 7. Heart catheterization. 8. Coronary artery bypass graft surgery. 9. Stent placement. 10. Abdominal iliac stents. FAMILY HISTORY: Reviewed and noncontributory. HOME MEDICATIONS: Please see home medication reconciliation form for updated medications. ALLERGIES: ALLERGIC TO AMOXICILLIN, AVELOX, AND MOXIFLOXACIN. REVIEW OF SYSTEMS: Review of 14 systems negative except what is mentioned in the history of present illness. PHYSICAL EXAMINATION: GENERAL: The patient is awake, alert, in mild distress. VITAL SIGNS: Blood pressure 136/84, pulse is 108, respiratory rate is 22, temperature is 98.6. HEAD: Normocephalic, atraumatic. NECK: Supple. No JVD. CHEST: Fair bilateral air entry. HEART: S1, S2. Regular. ABDOMEN: Obese, soft. Bowel sounds present. NEUROLOGIC: Awake, alert, and oriented x3. PSYCHIATRIC: Unable to assess. EXTREMITIES: No clubbing or cyanosis. LABORATORY DATA: As mentioned above in the history of present illness. ASSESSMENT: 1. Acute chest pain. 2. Hypokalemia. 3. Hyponatremia. 4. Congestive heart failure, on metolazone and furosemide. 5. Chronic kidney disease. 6. History of abdominal aortic aneurysm repair. 7. Coronary artery disease. 8. Hypertension. 9. Chronic adrenal insufficiency. PLAN: 1. Admit. 2. Telemetry monitoring. 3. Replace potassium. 4. Hold diuretics tonight, reassess in a.m. 5. Serial troponins. 6. Reconcile home medications. 7. DVT prophylaxis as appropriate/early ambulation. 8. Expected length of stay, 2 midnights or more. Job ID: [id number]
[2019-11-10] MEDS ORDERED: HYDROcodone/Acetaminophen 5/325 mg Tablet ONE (04:55)
[2019-11-10] MEDS ORDERED: HYDROcodone/Acetaminophen 5/325 mg Tablet PO SCH (05:00)
--- NOTE | 2019-11-10 07:24 | CT ---
PRELIMINARY REPORT/[facility]/EMERGENCY AFTER HOURS PROCEDURE Receipt of this report by the clinical staff was confirmed with Savannah Suazo RN by Florencia Sorto on Nov 10, 2019 01:54:00 CLASSIFIED AD CLERK. Addendum electronically signed by Florencia Sorto on November 10, 2019 1:55:30 AM CLASSIFIED AD CLERK Addendum: Addition to the original report. Cystic lesions around the duodenum and head of the pancreas are indeterminate. These could be benign. Duplication cysts. Benign or malignant cystic neoplasm of the pancreas cannot be excluded. Compare prior studies and consider further evaluation and follow up. Addendum electronically signed by Benny Ramirez MD on November 10, 2019 1:52:13 AM CLASSIFIED AD CLERK CT angiography chest and abdomen Comparison: None Indication: ER 21... 59M presents w/ intermittent CP for 1 year which has worsened and started to aff ect his back. Also found to have low sodium and potassium Findings: Abnormal patchy opacity throughout both lungs. This is upper lobe predominant. No consolidation, pleu ral effusion or pneumothorax. No pleural effusion or pneumothorax. Atherosclerosis and coronary artery calcification. Cardiomegaly No pericardial effusion. Mild aneurysmal dilatation of the ascending thoracic aorta to 4.7 cm. No evidence of rupture or disse ction. No large central pulmonary embolus. The small pulmonary arteries are not fully evaluated on this stud y. Hypoenhancement in the lateral left kidney. Severe atrophy of the left kidney. Macro soft tissue The solid organs and vasculature are otherwise normal. Normal gallbladder. No biliary ductal dilatation. Cystic structure along the 2nd portion of the duodenum measuring 2.5 cm.. This could be related to th e head of the pancreas or duodenum. Similar smaller lesion medial to the duodenum on image #122 measuring 18 mm. No bowel obstruction, free fluid, free air, abscess or diverticulitis. Infrarenal abdominal aortic stent graft. Left renal artery stent appears to be kinked. There is littl e flow in the left main renal artery. No evidence of rupture. Impression: Patchy opacity in the upper lungs is indeterminate and could be interstitial pneumonia, chronic inter stitial lung disease or atypical edema. Mild aneurysmal dilatation of the ascending thoracic aorta. Aortobiiliac stent graft is patent crossing an infrarenal abdominal aortic aneurysm. Correlate with p rior studies to evaluate for change in the aneurysm. Hypoenhancement in the lateral left kidney could be an acute or chronic renal infarct. There appears to be suboptimal flow across the left renal artery stent which terminates in the thrombosed aneurysm. ELECTRONICALLY SIGNED BY: Benny Ramirez MD Nov 10, 2019 1:46:08 AM CLASSIFIED AD CLERK This report is intended for review by the ordering physician only, in accordance of law. If you recei ve this report in error, please call [facility] at [phone]. FINAL REPORT Agree with the preliminary report provided. There are patchy opacities within the upper lobes which may reflect an infectious or inflammatory pne umonitis. Recommend correlation with the clinical exam. There is mild aneurysmal dilatation of the ascending thoracic aorta. There is an endovascular stent e xtending into the aorta and both iliac arteries. There is a stent within the left renal artery with an atrophic left kidney. The excluded aneurysmal sac of the infrarenal abdominal aorta is stable in size measuring 6.3 cm in its greatest mediolateral dimensions. There is no overt evidence to suggest the presence of an endoleak. There are small hypodensities seen surrounding the second stage of the duodenum and near the pancreat ic head which are new from a comparison CTA of the abdomen and pelvis dated February 18, 2019. These are predominantly hypodense and is do not appear to avidly enhance and may reflect tiny small fluid-f illed duodenal diverticula. Alternatively, these may reflect small hypodense peripancreatic and periduodenal lymphadenopathy. Follow-up CT examination utilizing enteric contrast and IV contrast is recommended for additional characterization. Transcribed Date/Time: 11/10/2019 7:58 AM
[2019-11-10 07:45] LABS: Troponin I 0.052 ng/mL (< 0.028)
[2019-11-10] MEDS ORDERED: Famotidine 20 MG TAB ONE (08:46)
[2019-11-10] MEDS ORDERED: Aspirin 325 MG TAB ONE (08:46)
[2019-11-10] MEDS ORDERED: Aspirin 325 mg Enteric Coated Tablet PO SCH (09:00)
[2019-11-10] MEDS ORDERED: Famotidine 20 MG TAB PO SCH (09:00)
--- NOTE | 2019-11-11 08:38 | DIS ---
DATE OF ADMISSION: 11/10/2019 DATE OF DISCHARGE: 11/10/2019 The patient signed against medical advice. BRIEF HOSPITAL COURSE: The patient is a 59-year-old male with multiple comorbidities, presented to the emergency room with chest discomfort. His workup was consistent with abnormal electrolytes with a sodium of 121, potassium of 3.3. Please note that the patient has a history of chronic hyponatremia. The patient signed against medical advice in the emergency room. The patient understands the risks, not limited to life threatening complications including . Job ID: [id number]
--- NOTE | 2019-11-12 03:30 | PQF ---
[facility] [employer] Reports Winform ViewerGRIERSON BAY JAMES MD [id number] CLINICAL DOCUMENTATION CLARIFICATION FORM: POST DISCHARGE Addendum to original discharge summary date: ____ Late entry note date: __ DATE: 11/12/2019 ATTN: BAY ABBOTT MD Please exercise your independent, professional judgment in responding to the clarification form. Clinical indicators are provided on the bottom of this form for your review Please check appropriate box(s): AMI TYPE: [ ] Acute Coronary Syndrome (ACS) without Acute CT meaning Unstable Angina [ ] NSTEMI (CT type I) [ ] NSTEMI due to Demand Ischemia (AMI Type II) [ ] Demand Ischemia without CT [ ] STEMI (please also specify site and arterysee below) If STEMI, SITE:[ ] Anterior [ ] Apical [ ] Lateral [ ] Inferior [ ] Posterior [ ] Q Wave [ ] Septal [ ] Unable to Determine SPECIFIC ARTERY (Based on site) [ ] Left Main Coronary[ ] Diagonal [ ] Left Anterior Descending[ ] Oblique Marginal [ ] Right Coronary Artery[ ] Unable to Determine [ ] Left Circumflex ONSET OF INFARCTION: [ ] Onset Less than 4 weeks of admission [ ] Onset Greater than 4 weeks of admission [ ] Unable to determine DUE TO (if applicable): [ ] Stent occlusion [ ] In-Stent stenosis [ ] Occlusion of coronary bypass graft [ ] Complication of PCI [ ] Underlying CAD [ ] Other [ ] Other diagnosis [ x ] Unable to determine - Patient left AMA In addition, please specify: Present on Admission (POA): [ ] Yes [ ] No [ ] Unable to determine CLINICAL INDICATORS - SIGNS / SYMPTOMS / LABS Elevated Troponin 0.047 on 11/09 and 0.052 on 11/10 - Documented in Laboratory result Chest pain - Documented in H&P on 11/10 by Luis Smith MD Chest discomfort - Documented in DS on 11/11 by BAY ABBOTT Abnormal electrolytes - Documented in DS on 11/11 by BAY ABBOTT RISKS: CHF CKD HTN TREATMENTS: Aspirin 325 mg daily - Medication report Serial troponin - Documented in H&P on 11/10 by Luis Smith MD patient Signed AMA - Documented in DS on 11/11 by BAY ABBOTT (This form is maintained as a part of the permanent medical record) 2014 [employer]. All Rights Reserved [email or web address] [not provided] MTDD
--- NOTE | 2019-11-12 04:12 | PQF ---
[facility] Crystal Reports Winform ViewerGRIERSON RONA BAY SOLER MD [id number] CLINICAL DOCUMENTATION CLARIFICATION FORM: POST DISCHARGE Addendum to original discharge summary date: ____ Late entry note date: __ DATE: 11/12/2019 ATTN: BAY ABBOTT MD Please exercise your independent, professional judgment in responding to the clarification form. Clinical indicators are provided on the bottom of this form for your review Please check appropriate box(s): HEART FAILURE: A. TYPE: [ ] Systolic / HFrEF [ ] Diastolic / HFpEF [ ] Combined Systolic / Diastolic B. ACUITY [ ] Acute [ ] Acute on Chronic [ ] Chronic [ ] Other diagnosis [ x ] Unable to determine - Patient left AMA In addition, please specify: Present on Admission (POA): [ ] Yes [ ] No [ ] Unable to determine For continuity of documentation, please document condition throughout progress notes and discharge summary. Thank You. CLINICAL INDICATORS - SIGNS / SYMPTOMS / LABS Elevated BNP 136.9 on 11/09 by - Documented in Laboratory History of Congestive heart failure - Documented in H&P on 11/10 by Jaquelin Hammer Congestive heart failure on metolazone, and furosemide - Documented in H&P on by Jaquelin Hammer RISKS: CKD HTN Elevated Troponin TREATMENTS: The patient is on Lasix - Documented in H&P on 11/10 by Jaquelin Hammer Hold Diuretics tonight reassess in a.m [facility] Crystal Reports Winform Viewer (This form is maintained as a part of the permanent medical record) 2014 [email or web address]. All Rights Reserved [email or web address] [not provided] MTDD
== END 2019-11-10 11:42 | disposition left against medical advice (07) | DRG 641 ==
LOC: ERS 22:39 → ERHOLD 11-10 02:43
PROVIDERS: ADMIT Internal Medicine; ATTEND Internal Medicine
DX: E87.1 Hypo-osmolality and hyponatremia (principal); I13.0 Hypertensive heart and chronic kidney disease with heart failure and stage 1 through stage 4 chronic kidney disease, or unspecified chronic kidney disease; E27.40 Unspecified adrenocortical insufficiency; E87.6 Hypokalemia; N18.9 Chronic kidney disease, unspecified; I50.9 Heart failure, unspecified; E78.5 Hyperlipidemia, unspecified; I25.10 Atherosclerotic heart disease of native coronary artery without angina pectoris; Z96.642 Presence of left artificial hip joint; R07.89 Other chest pain; I25.2 Old myocardial infarction; Z90.49 Acquired absence of other specified parts of digestive tract; Z98.49 Cataract extraction status, unspecified eye; Z88.6 Allergy status to analgesic agent
CPT/HCPCS: 36415; 71275; 72191; 74175; 80048; 82553; 83735; 83880; 85025; 93005; 96360; 96361; J7620; Q9967

== ENCOUNTER 2019-11-10 20:04 | Inpatient (IN) | payer SELFPAY ==
[2019-11-10 20:57] LABS: #Lymphocytes 0.6 thou/uL (1.20-3.40); #Monocytes 0.6 thou/uL (0.11-0.59); #Neutrophils 9.7 thou/uL (1.40-6.50); %Eosinophils 0.3 % (0.0-10.0); %Lymphocytes 5.1 % (21.0-51.0); %Monocytes 5.4 % (0.0-10.0); %Neutrophils 89.1 % (42.0-75.0); Hemoglobin 10.7 g/dL (14.0-18.0); Mean Corpuscular HGB CONC 34.2 g/dL (32.0-36.0); Mean Corpuscular Hemoglobin 28.1 pg (27.0-31.0); Mean Corpuscular Volume 82.4 fL (78.0-98.0); Mean Platelet Volume 6.6 fL (7.4-10.4); Platelet Count 288 thou/uL (130-400); RBC Distribution Width 16.9 % (11.5-14.5); Red Blood Cell (RBC) Count 3.78 mill/uL (4.70-6.10); White Blood Cell (WBC) Count 10.8 thou/uL (4.8-10.8)
[2019-11-10 21:22] LABS: ALT (SGPT) 18 U/L (8-55); AST (SGOT) 13 U/L (5-34); Albumin 3.2 g/dL (3.5-5.0); Alkaline Phosphatase 62 U/L (40-110); Anion Gap 12 mmol/L (10-20); BUN (Urea Nitrogen) 14 mg/dL (8.4-25.7); Bilirubin, Total 0.4 mg/dL (0.2-1.2); Calc. Creatinine Clearance 0 mL/min (70-130); Calcium 8.5 mg/dL (7.8-10.44); Carbon Dioxide 28 mmol/L (22-29); Chloride 86 mmol/L (98-107); Estimated GFR-MDRD Greater than 90; Globulin 2.3 g/dL (2.4-3.5); Glucose 124 mg/dL (70-105); Protein, Total 5.5 g/dL (6.0-8.3); Sodium 123 mmol/L (136-145)
[2019-11-10 21:25] LABS: Potassium 2.8 mmol/L (3.5-5.1)
[2019-11-10] MEDS ORDERED: Magnesium 2 GM/50 ML BAG (IN WATER) ONE (21:33)
[2019-11-10] MEDS ORDERED: Potassium Chloride 20 MEQ TAB ONE (21:33)
[2019-11-10] MEDS ORDERED: Lorazepam 2 MG/ML VIAL ONE (22:21)
[2019-11-10] MEDS ORDERED: Senokot S 8.6-50 MG TAB PO PRN (23:38)
[2019-11-10] MEDS ORDERED: Acetaminophen 325 MG TAB PO PRN (23:38)
[2019-11-10] MEDS ORDERED: HYDROcodone/Acetaminophen 5/325 mg Tablet PO PRN ×2 (23:38)
[2019-11-10 23:53] LABS: Troponin I 0.034 ng/mL (< 0.028)
[2019-11-11 02:24] VITALS: BMI 33.1
[2019-11-11 02:33] VITALS: BP 154/82; TEMP 96.7
[2019-11-11 02:38] LABS: Troponin I 0.021 ng/mL (< 0.028)
--- NOTE | 2019-11-11 07:36 | HP ---
PRIMARY CARE PHYSICIAN: Dr. Maier. CHIEF COMPLAINT: Altered mental status. HISTORY OF PRESENT ILLNESS: Mr. Medina is a 59-year-old man, who reported to the emergency room today via EMS after his called 911, for altered mental status. During exam, the patient had just been given Ativan 2 mg IV push after he became aggressive when his was leaving per the ER record. Most history in the HPI will be gleaned from the ER record and the H and P that was done less than 24 hours ago when he was admitted for hyponatremia, chest pain, and hypokalemia. Evidently, he was admitted overnight and then this morning, checked himself out AMA, went home and his called 911 when he was not quite acting himself. Per EMS records, he was A and O x1 when they got there. When he came to the ER, he was confused, unable to provide much history and did not know why he was in the ER. He denied any specific complaints. He denied any pain other than the chronic low back pain. PAST MEDICAL HISTORY: From the ER records, shows lupus, renal disease, atrophic left kidney, hyperlipidemia, osteoarthritis, had a AAA which was diagnosed in October of 2016, adrenal insufficiency, collagen vascular disease, chronic sinusitis, congestive heart failure, history of hypertension, coronary artery disease and had a myocardial infarction in 2009. He does also have some elevated troponins over the last 24 hours in the indeterminate range, but no clear cause for the new altered mental status. He did have a CT of the chest yesterday dissection protocol with a history of a AAA, but that was negative for any acute findings. He was given potassium 40 mEq in the ER today and then admitted to the telemetry unit for further management. PAST SURGICAL HISTORY: 1. Cataract surgery. 2. Appendectomy. 3. AAA repair. 4. Left hip replacement. 5. Hernia repair. 6. Sinus surgery. 7. Heart catheterization. 8. Coronary artery bypass graft surgery. 9. Stent placement. 10. Abdominal iliac stents. FAMILY HISTORY: Reviewed. HOME MEDICATIONS: They still need to be reconciled. The list we currently have: 1. Xanax 0.5 mg p.o. p.r.n. 2. Carisoprodol 350 mg p.o. t.i.d. p.r.n. 3. Florinef 0.1 mg p.o. b.i.d. 4. Lasix 60 mg p.o. b.i.d. 5. Atrovent 2 puffs inhalation p.r.n. 6. Antivert 25 mg p.o. q.i.d. as needed. 7. Zaroxolyn 5 mg p.o. daily. 8. Potassium chloride 20 mEq p.o. daily. 9. Prednisone 10 mg p.o. daily. 10. Phenergan 25 mg p.o. daily. 11. Flomax 0.4 mg p.o. at bedtime. 12. Metoprolol 25 mg p.o. b.i.d. ALLERGIES: AMOXICILLIN, AVELOX, MOXIFLOXACIN. REVIEW OF SYSTEMS: Unable to review due to patient's sedated status after getting Ativan. PHYSICAL EXAMINATION: GENERAL: The patient is sedated. He will open his eyes when you sternal rub him and then he goes back to sleep and is snoring loudly. VITAL SIGNS: Blood pressure 161/87, pulse is 95, respiratory rate is 16, temperature is 98.3, and pO2 sats are 99% on room air. HEENT: Head is atraumatic and normocephalic. Eyes, pupils are equally round and reactive to light. Eyelids are normal to inspection. ENT; mouth exam is normal. Mucous membranes are moist. NECK: No lymphadenopathy. No JVD is noted. CARDIOVASCULAR: Regular heart sounds. Regular rate and rhythm. ABDOMEN: Nontender. Bowel sounds are heard. BACK: Not assessed. EXTREMITIES: Upper extremity; radial pulses are normal. Lower extremity; edema is noted bilaterally, pitting, x3. Pedal pulses are normal. NEUROLOGIC: The patient is heavily sedated. SKIN: Warm, dry, normal in color. LABORATORY AND DIAGNOSTIC FINDINGS: EKG in the emergency room shows a normal sinus rhythm, beats per minute 92 with premature atrial complexes. Lab work; sodium is 123, potassium 2.8, chloride 86, carbon dioxide 28, BUN is 14, creatinine is 0.74, estimated GFR is greater than 90, glucose is 124. Lactic acid is 1. Liver enzymes are unremarkable. Troponin initially 0.026, second one was 0.034. Cortisol is 1.10. CBC; white blood cell count 10.8, red blood cells 3.78, hemoglobin 10.7, hematocrit 31.2, and platelet count is 288. ASSESSMENT AND PLAN: 1. Altered mental status. Unknown origin. The patient was admitted overnight, left AMA, and then called 911 when he became altered. CT chest was done yesterday. Today, we will order a UA, urine drug screen, brain CT, ammonia level. Recheck labs in the morning. The patient has been admitted. This will be the third time in a week for similar symptoms, although the altered mental status seems to be relatively new, but the hyponatremia and hypocalcemia has been present and patient has checked himself out twice AMA. 2. Troponins in the indeterminate range. The patient admitted yesterday for complaints of chest pain and indeterminate troponins. Dr. Betancourt ordered a cardiology consult due to the patient's history, we will continue that and ask Cardiology to consult. Third troponin has been ordered. 3. Magnesium level was 1.8, and the patient received 2 g IV piggyback in the emergency room. We will check this in the morning. 4. Hyponatremia. We will fluid restrict for now. Asked Dr. Moreno to consult. The patient's current value of 123 appears similar to baseline. 5. Hypokalemia. 40 mEq potassium was given to the patient in the emergency room. We will continue this 40 mEq p.o. b.i.d. and recheck value in the morning. We will hold diuretics and reassess patient's values in the morning. Deep vein thrombosis prophylaxis has been started as well as gastrointestinal prophylaxis. 6. History of hypertension. We will restart home medications. 7. Case discussed with Dr. Hammer, who agrees with plan. Job ID: [id number]
--- NOTE | 2019-11-11 07:39 | CT ---
PRELIMINARY REPORT/[facility]/EMERGENCY AFTER HOURS PROCEDURE CT brain without contrast: Comparison: None Findings: No intracranial hemorrhage. No mass lesion. No midline shift or herniation. No definite evidence of acute ischemia or stroke. No hydrocephalus. No fracture. Cerebral and cerebellar atrophy. The bones, sinuses and soft tissues are otherwise unrem arkable. Impression: No acute intracranial abnormality. Cerebral and cerebellar atrophy. ELECTRONICALLY SIGNED BY: Benny Ramirez MD Nov 11, 2019 12:52:23 AM [employer] This report is intended for review by the ordering physician only, in accordance of law. If you recei ve this report in error, please call [facility] at [phone]. FINAL REPORT EMERGENCY AFTER HOURS STUDY CT BRAIN NONCONTRAST: DATE: 11/11/2019. HISTORY: A 59-year-old male with altered mental status. FINDINGS: There is no evidence of acute intra-axial or extra-axial hemorrhage. There is no midline shift or any other mass effect. There is no extra-axial fluid collection. There is no evidence of obstructive hydrocephalus. Calvarium is intact. No major disagreement with preliminary report by [facility] . IMPRESSION: No acute intracranial findings. Transcribed Date/Time: 11/11/2019 8:49 AM
[2019-11-11] MEDS ORDERED: Potassium Chloride 20 MEQ TAB PO SCH (08:00)
[2019-11-11] MEDS ORDERED: Famotidine 20 MG TAB PO SCH (09:00)
[2019-11-11] MEDS ORDERED: Enoxaparin Sodium 40 MG/0.4 ML SYRINGE SC SCH (09:00)
== END 2019-11-11 04:10 | disposition left against medical advice (07) | DRG 948 ==
LOC: ERS 20:04 → 2NO 22:37
PROVIDERS: ADMIT Internal Medicine; ATTEND Internal Medicine
DX: R41.82 Altered mental status, unspecified (principal); E87.1 Hypo-osmolality and hyponatremia; E87.6 Hypokalemia; I10 Essential (primary) hypertension; E78.5 Hyperlipidemia, unspecified; M19.90 Unspecified osteoarthritis, unspecified site; I25.10 Atherosclerotic heart disease of native coronary artery without angina pectoris; E83.51 Hypocalcemia; G89.29 Other chronic pain; M54.5 Low back pain; Z96.642 Presence of left artificial hip joint; I25.2 Old myocardial infarction; Z98.49 Cataract extraction status, unspecified eye; Z90.49 Acquired absence of other specified parts of digestive tract; Z95.1 Presence of aortocoronary bypass graft; Z79.899 Other long term (current) drug therapy; Z88.1 Allergy status to other antibiotic agents
CPT/HCPCS: 36415; 70450; 82140; 82533; 83605; 83735; 84484; 93005; 94760; 96365; 96375; J2060; J3475